=== PATIENT | male | born 1990 | race Caucasian/White ===

== ENCOUNTER 2020-01-16 17:43 | Emergency (ER) | payer SELFPAY ==
--- NOTE | 2020-01-16 17:44 | CTR_ITS ---
PROCEDURE INFORMATION: Exam: CT Head Without Contrast Exam date and time: 01/16/2020 5:46 PM Age: 29 years old Clinical indication: Altered mental status/memory loss; Additional info: Mcallister/ams TECHNIQUE: Imaging protocol: Computed tomography of the head without contrast. Axial, coronal and sagittal reformatted images were created and reviewed. Radiation optimization: All CT scans at this facility use at least one of these dose optimization techniques: automated exposure control; mA and/or kV adjustment per patient size (includes targeted exams where dose is matched to clinical indication); or iterative reconstruction. COMPARISON: No relevant prior studies available. RADIATION DOSE METRICS: Total DLP: 989.26 mGy-cm FINDINGS: Brain: No CT evidence of acute intracranial hemorrhage or acute territorial infarction. No significant mass effect or midline shift. Basal cisterns patent. Ventricles: Normal in size and configuration. Bones/joints: No acute osseous abnormality. Sinuses: Minimal ethmoid, maxillary and left sphenoid sinus mucosal thickening. Mastoid air cells: Grossly unremarkable. Soft tissues: Grossly unremarkable. CT/CT head wo con* [id number] IMPRESSION: 1[address] No CT evidence of acute intracranial pathology. 2. Additional findings, as above. Radiation Dose CTDIVOL = (mGy): DLP = 989.26 (mGy-cm)
--- NOTE | 2020-01-16 17:44 | XR_ITS ---
WS: [id number] PORTABLE CHEST HISTORY: cough COMPARISON: None available. Minimal linear subsegmental atelectasis in the lower lung barton. Otherwise lungs are clear. No pleur al effusion or pneumothorax. Cardiac size: Normal. Mediastinum/Aorta: Normal mediastinum. No osseous abnormality seen. XR/XR chest 1V portable [id number] IMPRESSION: Minimal bilateral lower lobe subsegmental atelectasis.
[2020-01-16 18:04] VITALS: BP 173/122; PULSE 124; RESP 18; O2SAT 96; BMI 25.8
[2020-01-16 18:14] LABS: Basophils % 0.1 %; Hematocrit 53.1 % (42.0-52.0); Hemoglobin 17.2 g/dL (11.7-16.6); Lymphocytes # 3.6 10^3/uL (0.8-4.8); Lymphocytes % 13.6 %; Mean Corpuscular HGB Conc 32.4 g/dL (30.0-36.0); Mean Corpuscular Hemoglobin 25.6 pg (28.0-34.0); Mean Platelet Volume 9.5 fL (7.4-10.4); Monocytes # 1.8 10^3/uL (0.2-0.9); Monocytes % 6.7 %; Neutrophils # 20.6 10^3/uL (1.8-7.7); Neutrophils % 79.1 %; Nucleated Red Blood Cells % 0 %; Platelet Count 604 10^3/cmm (130-400); Red Blood Count 6.72 10^6/uL (4.1-5.3); Red Cell Distribution Width 20.3 % (12.1-15.1); White Blood Count 26.1 10^3/uL (4.0-10.0)
--- NOTE | 2020-01-16 18:16 | ED_ITS ---
Documented by User: Tata Lester 01/16/20 21:12 HPI - General Adult General: Chief complaint: General Medical Stated complaint: BODY PAIN Time Seen by Provider: 01/16/20 17:43 History of Present Illness: HPI narrative: Erlin is a 29-year-old male who comes in drunk and agitated. EMS report is his mother has been with him and states that he has been drinking today and she believes he is coming off methamphetamines. The patient is erratic and not cooperative. He states that he is drunk but will not admit to anything else. He is asking something for something to help him relax. Review of Systems General: Reports: ROS unobtainable due to mental status PFSH ED PFSH: Medical History (Updated 01/17/20 @ 02:48 by Sun Short MD) Kidney stones Social History Smoking and tobacco status: current every day smoker Physical Exam Const: COMMON NORMALS: oriented x3 EXAM LIMITATIONS: altered mental status (Appears intoxicated) GENERAL APPEARANCE: combative and disheveled ORIENTA TION/CONSCIOUSNESS: Yes awake HENMT: COMMON NORMALS: normocephalic, head/scalp atraumatic, hearing grossly normal bilaterally, external ears normal, EAC's normal, external nose normal and moist oral mucous membranes HEAD & SCALP: normal to inspection, normocephalic and atraumatic FACE & SINUS: normal facial exam and face symmetric NOSE: external nose normal and nares normal EXTERNAL EAR: Yes external ears normal EXTERNAL AUDITORY CANAL: EAC's normal MOUTH: oral and palatal mucosa normal and tongue normal Eye: COMMON NORMALS: PERRL, EOMs intact bilaterally, conjunctivae normal and no scleral icterus GENERAL EYE: normal appearance of both eyes and normal light reflex CONJUNCTIVA: Yes conjunctivae normal SCLERA: sclerae normal CORNEA: Yes corneas normal PUPIL: Yes PERRL DIRECT OPHTHALMOSCOPY: Yes normal light reflex Neck/C-Spine: COMMON NORMALS: full ROM, no lymphadenopathy, supple, no meningeal signs and no JVD GENERAL: Yes normal visual inspection and Yes trachea midline CERVICAL SPINE: Yes cervical ROM normal Chest: COMMONS NORMALS: inspection of chest normal and palpation of chest normal Resp: COMMON NORMALS: normal respiratory effort, no retractions, no use of accessory muscles and clear to auscultation bilaterally EFFORT & INSPECTION: Yes able to speak in complete sentences AUSCULTATION: clear to auscultation bilaterally Cardio: COMMON NORMALS: no JVD, regular rate, regular rhythm, S1 normal heart sound, S2 normal heart sound, no gallops, no clicks, no murmurs and no rub JUGULAR VENOUS DISTENTION: no JVD RATE: regular rate RHYTHM: regular rhythm HEART SOUNDS: S1 normal and S2 normal GI: COMMON NORMALS: soft to palpation, non-tender, no hepatosplenomegaly and no masses INSPECTION: Yes normal to inspection PALPATION: Yes soft and Yes no hepatosplenomegaly : COMMON NORMALS: Yes no CVA tenderness BLADDER/KIDNEY EXAM: Yes no CVA tenderness Back/Pelvis: COMMON NORMALS: no CVA tenderness, thoracic and lumbar spine normal to inspection, no thoracic nor lumbar tenderness and thoraco-lumbar ROM normal Extremity: COMMON NORMALS: normal to inspection, full ROM, normal capillary refill, no joint enlargement, no clubbing, cyanosis or edema and no calf tenderness Neuro: COMMON NORMALS: oriented x3, CN's II-XII intact bilaterally, moves all extremities, no focal motor deficits and no sensory deficits noted MENINGEAL SIGNS: Yes no meningeal signs Psych: ATTITUDE: Yes paranoid, Yes evasive, Yes agitated and Yes aggressive ACTIVITY/MOTOR BEHAVIOR: Yes fidgeting SPEECH: Yes rapid and Yes pressured Course Vital Signs: Vital signs: Vital Signs Pulse Rate 116 H 01/17/20 01:32 Respiratory Rate 18 01/17/20 01:32 Blood Pressure 192/117 01/17/20 01:32 Pulse Oximetry 97 01/17/20 01:32 [facility] - General Adult Lab Data: Labs: Lab Results 01/16/20 01/16/20 01/16/20 Range/Units 17:50 17:50 17:50 WBC 26.1 H (4.0-10.0) 10^3/ uL RBC 6.72 H (4.1-5.3) 10^6/u L Hgb 17.2 H (11.7-16.6) g/dL Hct 53.1 H (42.0-52.0) % MCV 79.0 L (80-94) fL MCH 25.6 L (28.0-34.0) pg MCHC 32.4 (30.0-36.0) g/dL RDW 20.3 H (12.1-15.1) % Plt Count 604 H (130-400) 10^3/c mm MPV 9.5 (7.4-10.4) fL Neut % (Auto) 79.1 % Lymph % (Auto) 13.6 % [place] % (Auto) 6.7 % Eos % (Auto) 0.0 % Baso % (Auto) 0.1 % Neut # (Auto) 20.6 H (1.8-7.7) 10^3/u L Lymph # (Auto) 3.6 (0.8-4.8) 10^3/u L [place] # (Auto) 1.8 H (0.2-0.9) 10^3/u L Eos # (Auto) 0.0 (0.0-0.8) 10^3/u L Baso # (Auto) 0.0 (0.0-0.1) 10^3/u L Nucleated RBC % (a uto) 0 % Nucleated RBCs # 0.0 /100WBC PT 13.30 (10.5-13.3) SECO NDS INR 0.98 (0.8-1.2) Specimen Type Sample Site ABG pH (7.35-7.45) ABG pCO2 (35-45) mmHg ABG pO2 (80.0-100.0) mmH g ABG HCO3 (22-26) mmol/L ABG Base Excess (-2.0-2.0) mmol/ L [place] Test Hematocrit (42-52) % O2 Delivery Device FiO2 % Freezer Laboratory Technician ID Sodium (136-145) mmol/L Potassium (3.5-5.1) mmol/L Chloride (98-107) mmol/L Carbon Dioxide (22-29) mmol/L Anion Gap (5-19) BUN (6-20) mg/dL Creatinine (0.7-1.2) mg/dL GFR Calculation (90-130) mL/min Glucose (65-115) mg/dL Calculated Osmolal ity (285-295) mOsm/k g Calcium (8.5-10.5) mg/dL Magnesium (1.7-2.3) mg/dL Total Bilirubin (0.15-1.2) mg/dL AST (0-40) U/L ALT (0-41) U/L Alkaline Phosphata se (40-130) IU/L Creatine Kinase (39-308) U/L Total Protein (6.6-8.7) g/dL Albumin (3.5-5.2) g/dL Globulin (1.3-4.6) g/dL Lipase (13-60) U/L Urine Color (Yellow) Urine Appearance (CLEAR) Urine pH (5-7) Ur Specific Gravit y (1.005-1.030) Urine Protein (Negative) Urine Glucose (UA) (Normal) Urine Ketones (Negative) Urine Blood (Negative) Urine Nitrate (Negative) Urine Bilirubin (NEGATIVE) Urine Urobilinogen (Negative) mg/dL Ur Leukocyte Deana ase (Negative) Urine RBC (0-2) /hpf Urine WBC (0-5) /hpf Ur Squamous Epith Cells (0-5) Urine Bacteria (NONE) Urine Yeast Urine Opiates Scre en (Negative) ng/mL Ur Barbiturates Sc reen (Negative) ng/mL Ur Phencyclidine S crn (Negative) ng/mL Ur Amphetamines Sc reen (Negative) ng/mL U Benzodiazepines Scrn (Negative) ng/mL Urine Cocaine Scre en (Negative) ng/mL U Marijuana (THC) Screen (Negative) ng/mL Ethyl Alcohol (0-10) mg/dL Serum Ketones Negative (Negative) 01/16/20 01/16/20 01/16/20 Range/Units 18:50 18:50 18:50 WBC (4.0-10.0) 10^3/ uL RBC (4.1-5.3) 10^6/u L Hgb (11.7-16.6) g/dL Hct (42.0-52.0) % MCV (80-94) fL MCH (28.0-34.0) pg MCHC (30.0-36.0) g/dL RDW (12.1-15.1) % Plt Count (130-400) 10^3/c mm MPV (7.4-10.4) fL Neut % (Auto) % Lymph % (Auto) % [place] % (Auto) % Eos % (Auto) % Baso % (Auto) % Neut # (Auto) (1.8-7.7) 10^3/u L Lymph # (Auto) (0.8-4.8) 10^3/u L [place] # (Auto) (0.2-0.9) 10^3/u L Eos # (Auto) (0.0-0.8) 10^3/u L Baso # (Auto) (0.0-0.1) 10^3/u L Nucleated RBC % (a uto) % Nucleated RBCs # /100WBC PT (10.5-13.3) SECO NDS INR (0.8-1.2) Specimen Type Sample Site ABG pH (7.35-7.45) ABG pCO2 (35-45) mmHg ABG pO2 (80.0-100.0) mmH g ABG HCO3 (22-26) mmol/L ABG Base Excess (-2.0-2.0) mmol/ L [place] Test Hematocrit (42-52) % O2 Delivery Device FiO2 % Freezer Laboratory Technician ID Sodium 142 (136-145) mmol/L Potassium 3.6 (3.5-5.1) mmol/L Chloride 100 (98-107) mmol/L Carbon Dioxide 23 (22-29) mmol/L Anion Gap 22.6 H (5-19) BUN 11 (6-20) mg/dL Creatinine 0.7 (0.7-1.2) mg/dL GFR Calculation 133.3 H (90-130) mL/min Glucose 144 H (65-115) mg/dL Calculated Osmolal ity 293 (285-295) mOsm/k g Calcium 8.8 (8.5-10.5) mg/dL Magnesium 2.0 (1.7-2.3) mg/dL Total Bilirubin 0.4 (0.15-1.2) mg/dL AST 29 (0-40) U/L ALT 23 (0-41) U/L Alkaline Phosphata se 147 H (40-130) IU/L Creatine Kinase 139 (39-308) U/L Total Protein 7.6 (6.6-8.7) g/dL Albumin 4.2 (3.5-5.2) g/dL Globulin 3.4 (1.3-4.6) g/dL Lipase 639 H (13-60) U/L Urine Color (Yellow) Urine Appearance (CLEAR) Urine pH (5-7) Ur Specific Gravit y (1.005-1.030) Urine Protein (Negative) Urine Glucose (UA) (Normal) Urine Ketones (Negative) Urine Blood (Negative) Urine Nitrate (Negative) Urine Bilirubin (NEGATIVE) Urine Urobilinogen (Negative) mg/dL Ur Leukocyte Deana ase (Negative) Urine RBC (0-2) /hpf Urine WBC (0-5) /hpf Ur Squamous Epith Cells (0-5) Urine Bacteria (NONE) Urine Yeast Urine Opiates Scre en (Negative) ng/mL Ur Barbiturates Sc reen (Negative) ng/mL Ur Phencyclidine S crn (Negative) ng/mL Ur Amphetamines Sc reen (Negative) ng/mL U Benzodiazepines Scrn (Negative) ng/mL Urine Cocaine Scre en (Negative) ng/mL U Marijuana (THC) Screen (Negative) ng/mL Ethyl Alcohol 272 H (0-10) mg/dL Serum Ketones (Negative) 01/16/20 01/16/20 01/16/20 Range/Units 20:40 20:40 20:40 WBC (4.0-10.0) 10^3/ uL RBC (4.1-5.3) 10^6/u L Hgb (11.7-16.6) g/dL Hct (42.0-52.0) % MCV (80-94) fL MCH (28.0-34.0) pg MCHC (30.0-36.0) g/dL RDW (12.1-15.1) % Plt Count (130-400) 10^3/c mm MPV (7.4-10.4) fL Neut % (Auto) % Lymph % (Auto) % [place] % (Auto) % Eos % (Auto) % Baso % (Auto) % Neut # (Auto) (1.8-7.7) 10^3/u L Lymph # (Auto) (0.8-4.8) 10^3/u L [place] # (Auto) (0.2-0.9) 10^3/u L Eos # (Auto) (0.0-0.8) 10^3/u L Baso # (Auto) (0.0-0.1) 10^3/u L Nucleated RBC % (a uto) % Nucleated RBCs # /100WBC PT (10.5-13.3) SECO NDS INR (0.8-1.2) Specimen Type Arterial Sample Site Radial, left ABG pH 7.40 (7.35-7.45) ABG pCO2 38.3 (35-45) mmHg ABG pO2 83.4 (80.0-100.0) mmH g ABG HCO3 23.5 (22-26) mmol/L ABG Base Excess -1.0 (-2.0-2.0) mmol/ L [place] Test Pos Hematocrit 51.6 (42-52) % O2 Delivery Device None FiO2 21.0 % Freezer Laboratory Technician ID [email or web address] Sodium (136-145) mmol/L Potassium (3.5-5.1) mmol/L Chloride (98-107) mmol/L Carbon Dioxide (22-29) mmol/L Anion Gap (5-19) BUN (6-20) mg/dL Creatinine (0.7-1.2) mg/dL GFR Calculation (90-130) mL/min Glucose (65-115) mg/dL Calculated Osmolal ity (285-295) mOsm/k g Calcium (8.5-10.5) mg/dL Magnesium (1.7-2.3) mg/dL Total Bilirubin (0.15-1.2) mg/dL AST (0-40) U/L ALT (0-41) U/L Alkaline Phosphata se (40-130) IU/L Creatine Kinase (39-308) U/L Total Protein (6.6-8.7) g/dL Albumin (3.5-5.2) g/dL Globulin (1.3-4.6) g/dL Lipase (13-60) U/L Urine Color Yellow (Yellow) Urine Appearance Clear (CLEAR) Urine pH 6 (5-7) Ur Specific Gravit y 1.010 (1.005-1.030) Urine Protein 1+ H (Negative) Urine Glucose (UA) Norm (Normal) Urine Ketones Negative (Negative) Urine Blood Trace H (Negative) Urine Nitrate Negative (Negative) Urine Bilirubin Neg (NEGATIVE) Urine Urobilinogen Norm (Negative) mg/dL Ur Leukocyte Deana ase Negative (Negative) Urine RBC 0-4 H (0-2) /hpf Urine WBC 0-4 H (0-5) /hpf Ur Squamous Epith Cells 5-10 H (0-5) Urine Bacteria 2+ H (NONE) Urine Yeast 3+ H Urine Opiates Scre en Negative (Negative) ng/mL Ur Barbiturates Sc reen Negative (Negative) ng/mL Ur Phencyclidine S crn Negative (Negative) ng/mL Ur Amphetamines Sc reen Positive H (Negative) ng/mL U Benzodiazepines Scrn Positive H (Negative) ng/mL Urine Cocaine Scre en Negative (Negative) ng/mL U Marijuana (THC) Screen Positive H (Negative) ng/mL Ethyl Alcohol (0-10) mg/dL Serum Ketones (Negative) Imaging Data^: CT Head: Radiologist's impression: [address] [address] [address] Scan Report Signed Patient: Erlin Hernandez Unit #: [id number] : 1990 Age/Sex: 29 / M ADM Date: 01/16/20 Loc: ER Room/Bed: Attending Dr: Ordering Provider/Ordering MD: Tata Lester DO Date of Service: 01/16/20 Procedure(s): CT head wo con* [id number] Accession Number(s): [id number] Report Number: [id number] PROCEDURE INFORMATION: Exam: CT Head Without Contrast Exam date and time: 01/16/2020 5:46 PM Age: 29 years old Clinical indication: Altered mental status/memory loss; Additional info: Mcallister/ams TECHNIQUE: Imaging protocol: Computed tomography of the head without contrast. Axial, coronal and sagittal reformatted images were created and reviewed. Radiation optimization: All CT scans at this facility use at least one of these dose optimization techniques: automated exposure control; mA and/or kV adjustment per patient size (includes targeted exams where dose is matched to clinical indication); or iterative reconstruction. COMPARISON: No relevant prior studies available. RADIATION DOSE METRICS: Total DLP: 989.26 mGy-cm FINDINGS: Brain: No CT evidence of acute intracranial hemorrhage or acute territorial infarction. No significant mass effect or midline shift. Basal cisterns patent. Ventricles: Normal in size and configuration. Bones/joints: No acute osseous abnormality. Sinuses: Minimal ethmoid, maxillary and left sphenoid sinus mucosal thickening. Mastoid air cells: Grossly unremarkable. Soft tissues: Grossly unremarkable. CT/CT head wo con* [id number] IMPRESSION: 1. No CT evidence of acute intracranial pathology. 2. Additional findings, as above. Radiation Dose CTDIVOL = (mGy): DLP = 989.26 (mGy-cm) Dictated By: Artur Roblero MD Signed By: Artur Roblero MD Signed Date/Time: 01/16/202020 DD/ 19 CT Abd/Pel: Radiologist's impression: [address] [address] [address] Scan Report Signed Patient: Erlin Hernandez Unit #: [id number] : 1990 Age/Sex: 29 / M ADM Date: 01/16/20 Loc: ER Room/Bed: Attending Dr: Ordering Provider/Ordering MD: Tata Lester DO Date of Service: 01/16/20 Procedure(s): CT abdomen pelvis w con* [id number] Accession Number(s): [id number] Report Number: [id number] PROCEDURE INFORMATION: Exam: CT Abdomen And Pelvis With Contrast Exam date and time: 01/16/2020 7:20 PM Age: 29 years old Clinical indication: Abdominal pain TECHNIQUE: Imaging protocol: Computed tomography of the abdomen and pelvis with intravenous contrast. Axial, coronal and sagittal reformatted images were created and reviewed. Radiation optimization: All CT scans at this facility use at least one of these dose optimization techniques: automated exposure control; mA and/or kV adjustment per patient size (includes targeted exams where dose is matched to clinical indication); or iterative reconstruction. Contrast material: OMNI 300; Contrast volume: 95 ml; Contrast route: IV; COMPARISON: No relevant prior studies available. RADIATION DOSE METRICS: Total DLP: 1075.3 mGy-cm FINDINGS: Heart: Trace pericardial fluid. Lungs: Linear stranding and groundglass at the lung bases, likely due to atelectasis and/or scarring. Mediastinum: Mild nonspecific distal esophageal wall thickening, suggesting chronic reflux/esophagitis. Liver: Mild hepatomegaly. Diffuse hepatic steatosis. Gallbladder and bile ducts: Mild gallbladder distention with tiny dependent gallstones. Pancreas: Moderate peripancreatic stranding and edema. Approximately 2.4 x 2.2 cm cystic lesion in the pancreatic head with subtle associated hyperattenuation, possibly blood products. 6.5 x 4 cm complex mass abutting the pancreatic tail, likely a hemorrhagic pseudocyst. Spleen: Unremarkable. Adrenals: Unremarkable. Kidneys and ureters: Multiple low-density renal lesions bilaterally, some of which are indeterminate and many of which are too small to characterize, measuring up to 1.8 x 1.6 cm on the left. No radiodense calculi. No hydronephrosis. Stomach and bowel: Mild gastric antral and duodenal wall thickening, likely reactive. No obstruction. No pneumatosis. Appendix: Normal. Intraperitoneal space: Small ascites. No free air. Vasculature: Mild atherosclerotic disease. No aneurysm or dissection. Lymph nodes: No pathologically enlarged lymph nodes. Bladder: Unremarkable. Reproductive: Unremarkable. Bones/joints: No acute osseous abnormality. Mild degenerative changes. Soft tissues: Unremarkable. CT/CT abdomen pelvis w con* [id number] IMPRESSION: 1. Acute pancreatitis with associated hemorrhagic pseudocysts, as described above. Follow-up to resolution is recommended. 2. Multiple low-density renal lesions bilaterally, some of which are indeterminate and many of which are too small to characterize, measuring up to 1.8 x 1.6 cm on the left. These likely represent simple and complex cysts. If clinically indicated, ultrasound is suggested for further evaluation. 3. Additional findings, as above. COMMENTS: Consistent with the [employer]'s Incidental Findings Committee white paper (J Am Shikha Radiol 2018): Any incidental cystic renal lesion classified in this report as too small to characterize or simple appearing is likely a benign cyst. No follow-up imaging is recommended for these lesions per consensus recommendations based on imaging criteria. Radiation Dose CTDIVOL = (mGy): DLP = 1075.3 (mGy-cm) Dictated By: Artur Roblero MD Signed By: Artur Roblero MD Signed Date/Time: 01/16/202028 DD/ 27 EKG Data^: EKG 1: Attestation: I personally reviewed and interpreted this EKG as follows: EKG interpretation date: 01/16/20 EKG interpretation time: 21:12 Interpretation: Sinus tach at 121 beats a minute, no acute ST or T wave changes, normal axis, no blocks, normal intervals. Computer generated interpretation: Head CT 01/16/20 17:[address]: 1[address] evidence of acute intracranial pathology. 2. Additional findings, as above. Radiation Dose CTDIVOL = (mGy): DLP = 989.26 (mGy-cm) Abdomen/Pelvis CT 01/16/20 18:29 IMPRESSION: 1. Acute pancreatitis with associated hemorrhagic pseudocysts, as described above. Follow-up to resolution is recommended. 2. Multiple low-density renal lesions bilaterally, some of which are indeterminate and many of which are too small to characterize, measuring up to 1.8 x 1.6 cm on the left. These likely represent simple and complex cysts. If clinically indicated, ultrasound is suggested for further evaluation. 3. Additional findings, as above. COMMENTS: Consistent with the [employer]'s Incidental Findings Committee white paper (J Am Shikha Radiol 2018): Any incidental cystic renal lesion classified in this report as too small to characterize or simple appearing is likely a benign cyst. No follow-up imaging is recommended for these lesions per consensus recommendations based on imaging criteria. 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 Fwd Exam Comprehensive Documented by User: Sun Short MD 01/17/20 02:59 HPI - General Adult General: Chief complaint: General Medical Stated complaint: BODY PAIN Time Seen by Provider: 01/16/20 17:43 PFSH ED PFSH: Medical History (Updated 01/17/20 @ 02:48 by Sun Short MD) Kidney stones Social History Smoking and tobacco status: current every day smoker Course Vital Signs: Vital signs: Vital Signs Pulse Rate 116 H 01/17/20 01:32 Respiratory Rate 18 01/17/20 01:32 Blood Pressure 192/117 01/17/20 01:32 Pulse Oximetry 97 01/17/20 01:32 MDM - General Adult MDM Narrative: Medical decision making narrative: Patient I took patient over from Dr. Amin. Patient was found to have pancreatitis with a hemorrhagic cyst. Spoke to physician at [facility] and will transfer there for higher level of care. Patient has been stable while here. Lab Data: Labs: Lab Results 01/16/20 01/16/20 01/16/20 Range/Units 17:50 17:50 17:50 WBC 26.1 H (4.0-10.0) 10^3/ uL RBC 6.72 H (4.1-5.3) 10^6/u L Hgb 17.2 H (11.7-16.6) g/dL Hct 53.1 H (42.0-52.0) % MCV 79.0 L (80-94) fL MCH 25.6 L (28.0-34.0) pg MCHC 32.4 (30.0-36.0) g/dL RDW 20.3 H (12.1-15.1) % Plt Count 604 H (130-400) 10^3/c mm MPV 9.5 (7.4-10.4) fL Neut % (Auto) 79.1 % Lymph % (Auto) 13.6 % [place] % (Auto) 6.7 % Eos % (Auto) 0.0 % Baso % (Auto) 0.1 % Neut # (Auto) 20.6 H (1.8-7.7) 10^3/u L Lymph # (Auto) 3.6 (0.8-4.8) 10^3/u L [place] # (Auto) 1.8 H (0.2-0.9) 10^3/u L Eos # (Auto) 0.0 (0.0-0.8) 10^3/u L Baso # (Auto) 0.0 (0.0-0.1) 10^3/u L Nucleated RBC % (a uto) 0 % Nucleated RBCs # 0.0 /100WBC PT 13.30 (10.5-13.3) SECO NDS INR 0.98 (0.8-1.2) Specimen Type Sample Site ABG pH (7.35-7.45) ABG pCO2 (35-45) mmHg ABG pO2 (80.0-100.0) mmH g ABG HCO3 (22-26) mmol/L ABG Base Excess (-2.0-2.0) mmol/ L [place] Test Hematocrit (42-52) % O2 Delivery Device FiO2 % Freezer Laboratory Technician ID Sodium (136-145) mmol/L Potassium (3.5-5.1) mmol/L Chloride (98-107) mmol/L Carbon Dioxide (22-29) mmol/L Anion Gap (5-19) BUN (6-20) mg/dL Creatinine (0.7-1.2) mg/dL GFR Calculation (90-130) mL/min Glucose (65-115) mg/dL Calculated Osmolal ity (285-295) mOsm/k g Calcium (8.5-10.5) mg/dL Magnesium (1.7-2.3) mg/dL Total Bilirubin (0.15-1.2) mg/dL AST (0-40) U/L ALT (0-41) U/L Alkaline Phosphata se (40-130) IU/L Creatine Kinase (39-308) U/L Total Protein (6.6-8.7) g/dL Albumin (3.5-5.2) g/dL Globulin (1.3-4.6) g/dL Lipase (13-60) U/L Urine Color (Yellow) Urine Appearance (CLEAR) Urine pH (5-7) Ur Specific Gravit y (1.005-1.030) Urine Protein (Negative) Urine Glucose (UA) (Normal) Urine Ketones (Negative) Urine Blood (Negative) Urine Nitrate (Negative) Urine Bilirubin (NEGATIVE) Urine Urobilinogen (Negative) mg/dL Ur Leukocyte Deana ase (Negative) Urine RBC (0-2) /hpf Urine WBC (0-5) /hpf Ur Squamous Epith Cells (0-5) Urine Bacteria (NONE) Urine Yeast Urine Opiates Scre en (Negative) ng/mL Ur Barbiturates Sc reen (Negative) ng/mL Ur Phencyclidine S crn (Negative) ng/mL Ur Amphetamines Sc reen (Negative) ng/mL U Benzodiazepines Scrn (Negative) ng/mL Urine Cocaine Scre en (Negative) ng/mL U Marijuana (THC) Screen (Negative) ng/mL Ethyl Alcohol (0-10) mg/dL Serum Ketones Negative (Negative) 01/16/20 01/16/20 01/16/20 Range/Units 18:50 18:50 18:50 WBC (4.0-10.0) 10^3/ uL RBC (4.1-5.3) 10^6/u L Hgb (11.7-16.6) g/dL Hct (42.0-52.0) % MCV (80-94) fL MCH (28.0-34.0) pg MCHC (30.0-36.0) g/dL RDW (12.1-15.1) % Plt Count (130-400) 10^3/c mm MPV (7.4-10.4) fL Neut % (Auto) % Lymph % (Auto) % [place] % (Auto) % Eos % (Auto) % Baso % (Auto) % Neut # (Auto) (1.8-7.7) 10^3/u L Lymph # (Auto) (0.8-4.8) 10^3/u L [place] # (Auto) (0.2-0.9) 10^3/u L Eos # (Auto) (0.0-0.8) 10^3/u L Baso # (Auto) (0.0-0.1) 10^3/u L Nucleated RBC % (a uto) % Nucleated RBCs # /100WBC PT (10.5-13.3) SECO NDS INR (0.8-1.2) Specimen Type Sample Site ABG pH (7.35-7.45) ABG pCO2 (35-45) mmHg ABG pO2 (80.0-100.0) mmH g ABG HCO3 (22-26) mmol/L ABG Base Excess (-2.0-2.0) mmol/ L [place] Test Hematocrit (42-52) % O2 Delivery Device FiO2 % Freezer Laboratory Technician ID Sodium 142 (136-145) mmol/L Potassium 3.6 (3.5-5.1) mmol/L Chloride 100 (98-107) mmol/L Carbon Dioxide 23 (22-29) mmol/L Anion Gap 22.6 H (5-19) BUN 11 (6-20) mg/dL Creatinine 0.7 (0.7-1.2) mg/dL GFR Calculation 133.3 H (90-130) mL/min Glucose 144 H (65-115) mg/dL Calculated Osmolal ity 293 (285-295) mOsm/k g Calcium 8.8 (8.5-10.5) mg/dL Magnesium 2.0 (1.7-2.3) mg/dL Total Bilirubin 0.4 (0.15-1.2) mg/dL AST 29 (0-40) U/L ALT 23 (0-41) U/L Alkaline Phosphata se 147 H (40-130) IU/L Creatine Kinase 139 (39-308) U/L Total Protein 7.6 (6.6-8.7) g/dL Albumin 4.2 (3.5-5.2) g/dL Globulin 3.4 (1.3-4.6) g/dL Lipase 639 H (13-60) U/L Urine Color (Yellow) Urine Appearance (CLEAR) Urine pH (5-7) Ur Specific Gravit y (1.005-1.030) Urine Protein (Negative) Urine Glucose (UA) (Normal) Urine Ketones (Negative) Urine Blood (Negative) Urine Nitrate (Negative) Urine Bilirubin (NEGATIVE) Urine Urobilinogen (Negative) mg/dL Ur Leukocyte Deana ase (Negative) Urine RBC (0-2) /hpf Urine WBC (0-5) /hpf Ur Squamous Epith Cells (0-5) Urine Bacteria (NONE) Urine Yeast Urine Opiates Scre en (Negative) ng/mL Ur Barbiturates Sc reen (Negative) ng/mL Ur Phencyclidine S crn (Negative) ng/mL Ur Amphetamines Sc reen (Negative) ng/mL U Benzodiazepines Scrn (Negative) ng/mL Urine Cocaine Scre en (Negative) ng/mL U Marijuana (THC) Screen (Negative) ng/mL Ethyl Alcohol 272 H (0-10) mg/dL Serum Ketones (Negative) 01/16/20 01/16/20 01/16/20 Range/Units 20:40 20:40 20:40 WBC (4.0-10.0) 10^3/ uL RBC (4.1-5.3) 10^6/u L Hgb (11.7-16.6) g/dL Hct (42.0-52.0) % MCV (80-94) fL MCH (28.0-34.0) pg MCHC (30.0-36.0) g/dL RDW (12.1-15.1) % Plt Count (130-400) 10^3/c mm MPV (7.4-10.4) fL Neut % (Auto) % Lymph % (Auto) % [place] % (Auto) % Eos % (Auto) % Baso % (Auto) % Neut # (Auto) (1.8-7.7) 10^3/u L Lymph # (Auto) (0.8-4.8) 10^3/u L [place] # (Auto) (0.2-0.9) 10^3/u L Eos # (Auto) (0.0-0.8) 10^3/u L Baso # (Auto) (0.0-0.1) 10^3/u L Nucleated RBC % (a uto) % Nucleated RBCs # /100WBC PT (10.5-13.3) SECO NDS INR (0.8-1.2) Specimen Type Arterial Sample Site Radial, left ABG pH 7.40 (7.35-7.45) ABG pCO2 38.3 (35-45) mmHg ABG pO2 83.4 (80.0-100.0) mmH g ABG HCO3 23.5 (22-26) mmol/L ABG Base Excess -1.0 (-2.0-2.0) mmol/ L Aqu[place]ino Test Pos Hematocrit 51.6 (42-52) % O2 Delivery Device None FiO2 21.0 % Freezer Laboratory Technician ID [email or web address] Sodium (136-145) mmol/L Potassium (3.5-5.1) mmol/L Chloride (98-107) mmol/L Carbon Dioxide (22-29) mmol/L Anion Gap (5-19) BUN (6-20) mg/dL Creatinine (0.7-1.2) mg/dL GFR Calculation (90-130) mL/min Glucose (65-115) mg/dL Calculated Osmolal ity (285-295) mOsm/k g Calcium (8.5-10.5) mg/dL Magnesium (1.7-2.3) mg/dL Total Bilirubin (0.15-1.2) mg/dL AST (0-40) U/L ALT (0-41) U/L Alkaline Phosphata se (40-130) IU/L Creatine Kinase (39-308) U/L Total Protein (6.6-8.7) g/dL Albumin (3.5-5.2) g/dL Globulin (1.3-4.6) g/dL Lipase (13-60) U/L Urine Color Yellow (Yellow) Urine Appearance Clear (CLEAR) Urine pH 6 (5-7) Ur Specific Gravit y 1.010 (1.005-1.030) Urine Protein 1+ H (Negative) Urine Glucose (UA) Norm (Normal) Urine Ketones Negative (Negative) Urine Blood Trace H (Negative) Urine Nitrate Negative (Negative) Urine Bilirubin Neg (NEGATIVE) Urine Urobilinogen Norm (Negative) mg/dL Ur Leukocyte Deana ase Negative (Negative) Urine RBC 0-4 H (0-2) /hpf Urine WBC 0-4 H (0-5) /hpf Ur Squamous Epith Cells 5-10 H (0-5) Urine Bacteria 2+ H (NONE) Urine Yeast 3+ H Urine Opiates Scre en Negative (Negative) ng/mL Ur Barbiturates Sc reen Negative (Negative) ng/mL Ur Phencyclidine S crn Negative (Negative) ng/mL Ur Amphetamines Sc reen Positive H (Negative) ng/mL U Benzodiazepines Scrn Positive H (Negative) ng/mL Urine Cocaine Scre en Negative (Negative) ng/mL U Marijuana (THC) Screen Positive H (Negative) ng/mL Ethyl Alcohol (0-10) mg/dL Serum Ketones (Negative) EKG Data^: EKG 1: Computer generated interpretation: Head CT 01/16/20 17:[address]: 1[address] No CT evidence of acute intracranial pathology. 2. Additional findings, as above. Radiation Dose CTDIVOL = (mGy): DLP = 989.26 (mGy-cm) Abdomen/Pelvis CT 01/16/20 18:29
[2020-01-16 18:24] LABS: INR 0.98 (0.8-1.2); Ketone (Acetest) Serum Negative (Negative)
--- NOTE | 2020-01-16 18:29 | CTR_ITS ---
PROCEDURE INFORMATION: Exam: CT Abdomen And Pelvis With Contrast Exam date and time: 01/16/2020 7:20 PM Age: 29 years old Clinical indication: Abdominal pain TECHNIQUE: Imaging protocol: Computed tomography of the abdomen and pelvis with intravenous contrast. Axial, coronal and sagittal reformatted images were created and reviewed. Radiation optimization: All CT scans at this facility use at least one of these dose optimization techniques: automated exposure control; mA and/or kV adjustment per patient size (includes targeted exams where dose is matched to clinical indication); or iterative reconstruction. Contrast material: OMNI 300; Contrast volume: 95 ml; Contrast route: IV; COMPARISON: No relevant prior studies available. RADIATION DOSE METRICS: Total DLP: 1075.3 mGy-cm FINDINGS: Heart: Trace pericardial fluid. Lungs: Linear stranding and groundglass at the lung bases, likely due to atelectasis and/or scarring. Mediastinum: Mild nonspecific distal esophageal wall thickening, suggesting chronic reflux/esophagitis. Liver: Mild hepatomegaly. Diffuse hepatic steatosis. Gallbladder and bile ducts: Mild gallbladder distention with tiny dependent gallstones. Pancreas: Moderate peripancreatic stranding and edema. Approximately 2.4 x 2.2 cm cystic lesion in the pancreatic head with subtle associated hyperattenuation, possibly blood products. 6.5 x 4 cm complex mass abutting the pancreatic tail, likely a hemorrhagic pseudocyst. Spleen: Unremarkable. Adrenals: Unremarkable. Kidneys and ureters: Multiple low-density renal lesions bilaterally, some of which are indeterminate and many of which are too small to characterize, measuring up to 1.8 x 1.6 cm on the left. No radiodense calculi. No hydronephrosis. Stomach and bowel: Mild gastric antral and duodenal wall thickening, likely reactive. No obstruction. No pneumatosis. Appendix: Normal. Intraperitoneal space: Small ascites. No free air. Vasculature: Mild atherosclerotic disease. No aneurysm or dissection. Lymph nodes: No pathologically enlarged lymph nodes. Bladder: Unremarkable. Reproductive: Unremarkable. Bones/joints: No acute osseous abnormality. Mild degenerative changes. Soft tissues: Unremarkable. CT/CT abdomen pelvis w con* [id number] IMPRESSION: 1. Acute pancreatitis with associated hemorrhagic pseudocysts, as described above. Follow-up to resolution is recommended. 2. Multiple low-density renal lesions bilaterally, some of which are indeterminate and many of which are too small to characterize, measuring up to 1.8 x 1.6 cm on the left. These likely represent simple and complex cysts. If clinically indicated, ultrasound is suggested for further evaluation. 3. Additional findings, as above. COMMENTS: Consistent with the [employer]'s Incidental Findings Committee white paper (J Am Shikha Radiol 2018): Any incidental cystic renal lesion classified in this report as too small to characterize or simple appearing is likely a benign cyst. No follow-up imaging is recommended for these lesions per consensus recommendations based on imaging criteria. Radiation Dose CTDIVOL = (mGy): DLP = 1075.3 (mGy-cm)
[2020-01-16 19:25] LABS: Alanine Aminotransferase 23 U/L (0-41); Albumin Level 4.2 g/dL (3.5-5.2); Alkaline Phosphatase 147 IU/L (40-130); Anion Gap 22.6 (5-19); Aspartate Amino Transferase 29 U/L (0-40); Blood Urea Nitrogen 11 mg/dL (6-20); Calcium 8.8 mg/dL (8.5-10.5); Carbon Dioxide 23 mmol/L (22-29); Chloride 100 mmol/L (98-107); Creatine Phosphokinase 139 U/L (39-308); Globulin 3.4 g/dL (1.3-4.6); Glomerular Filtration Rate 133.3 mL/min (90-130); Glucose 144 mg/dL (65-115); Osmolality Calculated 293 mOsm/kg (285-295); Potassium 3.6 mmol/L (3.5-5.1); Sodium 142 mmol/L (136-145); Total Bilirubin 0.4 mg/dL (0.15-1.2); Total Protein 7.6 g/dL (6.6-8.7)
[2020-01-16] MEDS: haloperidol inj 5 mg/mL INJ 1 mL IM (19:52)
[2020-01-16] MEDS: LORazepam 2 mg/mL INJ 1 mL IM (19:53)
[2020-01-16] MEDS: ondansetron 2 mg/ML SDV 2 mL 4 MG IVP (19:53)
[2020-01-16] MEDS: sodium chloride 0.9% 1,000 ML 100 ML IV (19:54)
[2020-01-16] MEDS: iohexol 300 mg/mL 100 mL Btl IV (20:14)
[2020-01-16 20:46] LABS: ABG PCO2 38.3 mmHg (35-45); Arterial Blood Gas Hematocrit 51.6 % (42-52); Blood Gas Allen Test Pos; Blood Gas Sample Site Radial, left; Blood Gas Sample Type Arterial; HCO3 ABG 23.5 mmol/L (22-26); PO2 ABG 83.4 mmHg (80.0-100.0)
[2020-01-16 20:53] LABS: Alcohol Level 272 mg/dL (0-10)
[2020-01-16] MEDS: lactated ringers 1,000 ML 999 ML IV (21:13)
[2020-01-16 21:14] VITALS: RESP 17; O2SAT 98
[2020-01-16] MEDS: morphine 4 mg/mL SDV 1 mL IVP ×2 (21:14→23:16)
[2020-01-16 21:24] LABS: Bilirubin Urine Neg (NEGATIVE); Blood Urine Trace (Negative); Glucose Urine UA Norm (Normal); Ketones Urine Negative (Negative); Leukocyte Esterase Urine Negative (Negative); Nitrate Urine Negative (Negative); Protein Urine 1+ (Negative); Urine Appearance Clear (CLEAR); Urine Color Yellow (Yellow); Urobilinogen Urine Norm (Negative); pH Urine 6 (5-7)
[2020-01-16 21:25] LABS: Bacteria Urine 2+; RBC Urine 0-4 /hpf (0-2); WBC Urine 0-4 /hpf (0-5)
[2020-01-16] MEDS: pantoprazole 40 mg SDV 80 MG IVP (21:25)
[2020-01-16 21:27] LABS: Add Urine Culture? Yes
[2020-01-16 21:28] LABS: Amphetamines Screen Urine Positive (Negative); Benzodiazepines Screen Urine Positive (Negative); Cocaine Screen Urine Negative (Negative); Opiate Screen Urine Negative (Negative); PCP Screen Urine Negative (Negative); THC Screen Urine Positive (Negative)
[2020-01-16 21:35] LABS: Lipase 639 U/L (13-60)
[2020-01-16] MEDS: haloperidol inj 5 mg/mL INJ 1 mL 2 MG IVP (21:56)
[2020-01-16 22:14] LABS: Barbiturates Screen Urine Negative (Negative)
[2020-01-16] MEDS: labetalol 5 mg/mL SDV 20mL 10 MG IVP (23:10)
[2020-01-16 23:16] VITALS: RESP 16; O2SAT 98
[2020-01-17] MEDS: labetalol 5 mg/mL SDV 20mL 20 MG IVP (00:26)
[2020-01-17 00:27] VITALS: RESP 18; O2SAT 96
[2020-01-17] MEDS: HYDROmorphone 1 mg/mL INJ 1 mL IVP (00:27)
[2020-01-17] MEDS: LORazepam 2 mg/mL INJ 1 mL IVP (00:27)
[2020-01-17 01:32] VITALS: BP 192/117; PULSE 116; RESP 18; O2SAT 97
== END 2020-01-17 02:56 | disposition short-term general hospital (02) ==
PROVIDERS: Emergency Medicine; Emergency Provider Emergency Medicine
DX: K85.20 Alcohol induced acute pancreatitis without necrosis or infection (principal); K86.2 Cyst of pancreas; F17.210 Nicotine dependence, cigarettes, uncomplicated
CPT/HCPCS: 12345; 36600; 70450; 71045; 74177; 80053; 80306; 80307; 81001; 82009; 82550; 82803; 83690; 83735; 85025; 85610; 87086; 96365; 96366; 96372; 96375; 96376; 99283; 99285; C9113; J0131; J1170; J1630; J2060; J2270; J2405; J3490; J7030; Q9967

== ENCOUNTER → 2020-01-16 17:48 | Emergency (ER) | payer SELFPAY | END | disposition left against medical advice (07) | LOC: ER 04-26 12:06 | PROVIDERS: Emergency Provider Emergency Medicine | DX: K86.2 Cyst of pancreas (principal); K85.20 Alcohol induced acute pancreatitis without necrosis or infection; F17.210 Nicotine dependence, cigarettes, uncomplicated | CPT/HCPCS: 99281 ==

== ENCOUNTER → 2022-07-25 14:14 | Outpatient (BNVA) | payer MEDICAID, SELFPAY | PROVIDERS: PCP Family Medicine; Visit Provider Nurse Practitioner Family | DX: Z20.822 Contact with and (suspected) exposure to COVID-19 (principal) | CPT/HCPCS: 87426 ==

== ENCOUNTER 2022-12-23 22:08 | Emergency (ER) | payer MEDICAID, SELFPAY ==
[2022-12-23 22:20] VITALS: BP 215/135; PULSE 81; RESP 18; TEMP 36.8; O2SAT 98; BMI 24.9
--- NOTE | 2022-12-24 00:02 | CTR_ITS ---
PROCEDURE INFORMATION: Exam: CT Abdomen And Pelvis With Contrast Exam date and time: 12/24/2022 12:53 AM Age: 32 years old Clinical indication: Fever; Abdominal pain; Generalized; Additional info: Abd pain R/O infection TECHNIQUE: Imaging protocol: Computed tomography of the abdomen and pelvis with contrast. Radiation optimization: All CT scans at this facility use at least one of these dose optimization techniques: automated exposure control; mA and/or kV adjustment per patient size (includes targeted exams where dose is matched to clinical indication); or iterative reconstruction. Contrast material: OMNI 350; Contrast volume: 100 ml; Contrast route: INTRAVENOUS (IV); REPORTING DATA: Count of CT and Cardiac NM exams in prior 12 months: This patient has received 0 known CTs and 0 known cardiac nuclear medicine studies in the 12 months prior to the current study. COMPARISON: CT abdomen pelvis w con* [id number] 01/16/2020 8:08 PM RADIATION DOSE METRICS: Total DLP (mGy-cm): 596.58 FINDINGS: Lungs: Mild linear opacities in the lung bases compatible with mild atelectasis. A partially imaged 5 mm nodule along the left major fissure, likely a small lymph node, (series 4, image 1). No pleural effusion. No additional lung masses. Heart: Trace anterior pericardial effusion is again noted. Mild cardiomegaly. Liver: Mild hepatomegaly. No hepatic focal lesions.. No mass. Gallbladder and bile ducts: Redemonstration of mild thickening of the gallbladder estrada. No calcified gallbladder stones are identified. No ductal dilation. Pancreas: Redemonstration of sequela of pancreatitis. Interval decreased size of the cystic lesion in the pancreatic head, now measuring approximally 1.8 x 1.5 cm, (series 4, image 35), previously measures approximally 2.4 x 2.4 cm, (series 2, image 43 on the prior). Redemonstration of [id number] peripancreatic fat stranding and edema, overall decreased compared to the prior. Interval decreased size of the previously seen complex mass abutting the pancreatic tail with residual lesion measuring 3.1 x 2.1 cm, (series 4, image 25), previously measured approximately 6.5 x 4.0 cm. Increased vascularity around the tail of the pancreas and between the stomach in the spleen. Spleen: Mild splenomegaly. Adrenal glands: The adrenal glands are stable in appearance. No mass. Kidneys and ureters: Multiple renal cysts are again noted. There are small non-obstructing calcific densities in the left kidney. No hydronephrosis. Stomach and bowel: Thickening of the gastric wall can be seen with gastritis in the appropriate clinical setting. Mild varicosities is suspected. The small and large bowel appear grossly stable No obstruction. Appendix: No evidence of appendicitis. Intraperitoneal space: Unremarkable. No free air. No significant fluid collection. Vasculature: Increased varicosities around the stomach in the hilum of the spleen There are atherosclerotic calcifications of the aortic arch and its branches. No abdominal aortic aneurysm. Lymph nodes: No enlarged lymph nodes by CT size criteria. Urinary bladder: Unremarkable as visualized. Reproductive: Unremarkable as visualized. Bones/joints: Mild degenerative changes of the lumbar spine. Disc bulges at multiple levels. No acute fracture. Soft tissues: Unremarkable. CT/CT abdomen pelvis w con* [id number] IMPRESSION: 1. Expected interval evolution of the previously seen sequela of acute pancreatitis with decreased size of the previously seen cystic pancreatic lesions as detailed above. Continued attention on follow-up is recommended. 2. Indeterminate 6 mm nodule in the right lung. A 6-12 month follow-up chest CT is recommended for further evaluation according to Fleischner criteria. 3. Additional findings as detailed above.
--- NOTE | 2022-12-24 00:26 | ED_ITS ---
HPI - Recheck/Abnormal Lab/Rx General: Chief Complaint: Recheck/Abnormal Lab/Rx Stated Complaint: Dr. Fuad jim, gallbladder issues Time Seen by Provider: 12/24/22 00:23 History of Present Illness: 32-year-old male patient comes in today for complaints of a flare of pancreatitis starting 4 days ago. Patient was seen at his primary care office yesterday and was treated with antinausea medication and medication for pain. Labs came back today and noted that patient had some elevation in white blood cell count. Patient's physician felt that he might need to be further evaluated in the ER to rule out infectious process. Patient reports some improvement today. Patient also has a history of substance use disorder, alcoholism, and chronic pancreatitis. Review of Systems General: Reports: 10 or more systems reviewed and unremarkable except in HPI and below Card: Denies: chest pain Resp: Denies: dyspnea GI: Reports: abdominal pain, nausea and vomiting Musc: Denies: neck pain or back pain Skin/Breast: Denies: rash Neuro: Denies: headache(s) PFSH ED PFSH: Medical History Alcoholic liver disease CAD (coronary artery disease) Diabetes HTN (hypertension) Hyperlipidemia Kidney stones Pancreatitis, chronic Surgical History Stented coronary artery Family History Mother CAD (coronary artery disease), Onset Age: 55 Stroke Social History Quit status (tobacco): has tried quititng Number of times tried to quit tobacco: 6 Second hand smoke exposure: Yes Alcohol intake: former Former alcohol use details: Takes a Shot occasionally Current gender identity: Male and Female Physical Exam Const: COMMON NORMALS: alert HENMT: COMMON NORMALS: normocephalic HEAD & SCALP: normocephalic Neck/C-Spine: COMMON NORMALS: no meningeal signs Resp: COMMON NORMALS: normal respiratory effort and clear to auscultation bilaterally AUSCULTATION: clear to auscultation bilaterally Cardio: COMMON NORMALS: regular rate and regular rhythm RATE: regular rate RHYTHM: regular rhythm GI: COMMON NORMALS: Soft to palpation PALPATION: Yes Soft to palpation and Yes Tenderness to palpation present (GI) (Midepigastric) Extremity: COMMON NORMALS: normal to inspection Neuro: SENSORIUM/ORIENTATION: Yes alert MENINGEAL SIGNS: Yes no meningeal signs Skin: COMMON NORMALS: turgor normal GENERAL SKIN EXAM: turgor normal Course ED course: 0234, CBC had a leukocytosis at 19,000, lipase was 12, liver enzymes were unremarkable, and anion gap was 16. Patient was given 1 L of IV fluids but we held the second liter as he does not appear to be as dehydrated as suspected. We are awaiting CT report for further evaluation pain and nausea and vomiting. Vital Signs: Vital signs: Vital Signs Temperature 98.2 F 12/23/22 22:20 Pulse Rate 70 12/24/22 02:30 Respiratory Rate 13 12/24/22 02:34 Blood Pressure 164/100 12/24/22 02:30 Pulse Oximetry 100 12/24/22 02:34 Oxygen Delivery Me thod Room Air 12/23/22 22:20 MDM - Recheck/Abnormal Lab/Rx Medical Decision Making Patient was referred to the ER from his primary care for concerns of elevated white blood cell count along with nausea vomiting and abdominal pain. On exam p atient had some epigastric discomfort. Respirations were even lungs were clear to auscultation. Skin was warm and dry. Vital signs were normal except for elevation of blood pressure. Differential diagnosis includes but not limited to pancreatitis, gallbladder disease, gastritis, abdominal abscess. Laboratory values had a white count of 19,000, lipase was 12, liver enzymes were unremarkable. Blood glucose was 202. CT of the abdomen pelvis was performed showing improvement in pancreatitis with decreased size and cystic pancreatic lesions. Urinalysis was clean. Patient was given 1 L of IV fluids and medication for pain and nausea. Patient had improvement of symptoms. Recommended patient follow-up with primary care and monitor for high fever or blood in vomit or stool. No signs of surgical abdomen or serious infectious process could be identified. Patient does have very poor dentition and also had had the vomitus episodes which may be contributing to the elevation in his white blood cell count. Patient at this time is on amoxicillin for his dental problems and has planned for a removal of his teeth. Reviewed recommendations for follow-up and return with patient who agreed to plan. Lab Data 12/23/22 00:41 12/23/22 00:41 Radiology Impressions Abdomen/Pelvis CT 12/24/22 00:02 IMPRESSION: 1. Expected interval evolution of the previously seen sequela of acute pancreatitis with decreased size of the previously seen cystic pancreatic lesions as detailed above. Continued attention on follow-up is recommended. 2. Indeterminate 6 mm nodule in the right lung. A 6-12 month follow-up chest CT is recommended for further evaluation according to Fleischner criteria. 3. Additional findings as detailed above. Laboratory Results WBC 19.7 10^3/uL (4.0-10.0) H 12/23/22 00:41 RBC 5.47 10^6/uL (4.1-5.3) H 12/23/22 00:41 Hgb 15.0 g/dL (11.7-16.6) 12/23/22 00:41 Hct 45.5 % (42.0-52.0) 12/23/22 00:41 MCV 83.2 fl (80-94) 12/23/22 00:41 MCH 27.4 pg (28.0-34.0) L 12/23/22 00:41 MCHC 33.0 g/dL (30.0-36.0) 12/23/22 00:41 RDW 16.1 % (12.1-15.1) H 12/23/22 00:41 Plt Count 142 10^3/cmm (130-400) 12/23/22 00:41 MPV 11.6 fL (7.4-10.4) H 12/23/22 00:41 Neut % (Auto) 69.4 % 12/23/22 00:41 Lymph % (Auto) 22.4 % 12/23/22 00:41 Day % (Auto) 6.4 % 12/23/22 00:41 Eos % (Auto) 1.2 % 12/23/22 00:41 Baso % (Auto) 0.3 % 12/23/22 00:41 Neut # (Auto) 13.68 10^3/uL (1.8-7.7) H 12/23/22 00:41 Lymph # (Auto) 4.4 10^3/uL (0.8-4.8) 12/23/22 00:41 Day # (Auto) 1.3 10^3/uL (0.2-0.9) H 12/23/22 00:41 Eos # (Auto) 0.2 10^3/uL (0.0-0.8) 12/23/22 00:41 Baso # (Auto) 0.1 10^3/uL (0.0-0.1) 04 00:41 Nucleated RBC % (auto) 0 % 12/23/22 00:41 Nucleated RBCs # 0.0 /100WBC 12/23/22 00:41 Sodium 137 mmol/L (136-145) 12/23/22 00:41 Potassium 3.7 mmol/L (3.5-5.1) 12/23/22 00:41 Chloride 99 mmol/L (98-107) 12/23/22 00:41 Carbon Dioxide 25 mmol/L (22-29) 12/23/22 00:41 Anion Gap 16.7 (5-19) 12/23/22 00:41 BUN 21 mg/dL (6-20) H 12/23/22 00:41 Creatinine 1.1 mg/dL (0.7-1.2) 12/23/22 00:41 GFR Calculation 77.6 mL/min (90-130) L 12/23/22 00:41 Glucose 202 mg/dL (65-115) H 12/23/22 00:41 Calculated Osmolality 293 mOsm/kg (285-295) 12/23/22 00:41 Calcium 9.3 mg/dL (8.5-10.5) 12/23/22 00:41 Total Bilirubin 0.2 mg/dL (0.15-1.2) 12/23/22 00:41 AST 11 U/L (0-40) 12/23/22 00:41 ALT 12 U/L (0-41) 12/23/22 00:41 Alkaline Phosphatase 125 U/L (40-130) 12/23/22 00:41 Total Protein 7.4 g/dL (6.6-8.7) 12/23/22 00:41 Albumin 4.3 g/dL (3.5-5.2) 12/23/22 00:41 Globulin 3.1 g/dL (1.3-4.6) 12/23/22 00:41 Triglycerides 142 mg/dL (0-150) 12/23/22 00:41 Lipase 12 U/L (13-60) L 12/23/22 00:41 Urine Color Colorless (Yellow) 12/24/22 02:42 Urine Appearance Clear (CLEAR) 12/24/22 02:42 Urine pH 7 (5-7) 12/24/22 02:42 Ur Specific [place] 1.005 (1.005-1.030) 12/24/22 02:42 Urine Protein Neg (Negative) 12/24/22 02:42 Urine Glucose (UA) Trace (Normal) H 12/24/22 02:42 Urine Ketones Negative (Negative) 12/24/22 02:42 Urine Blood Neg (Negative) 12/24/22 02:42 Urine Nitrate Negative (Negative) 12/24/22 02:42 Urine Bilirubin Neg (Negative) 12/24/22 02:42 Urine Urobilinogen Norm mg/dL (Negative) 12/24/22 02:42 Ur Leukocyte Esterase Negative (Negative) 12/24/22 02:42 Discharge Plan Discharge Patient Disposition: Home Clinical Impression: Nausea & vomiting Pancreatitis, chronic Qualifiers: Pancreatitis type: unspecified pancreatitis type Qualified Code(s): K86.1 - Other chronic pancreatitis Condition: Stable Prescriptions: No Action clonazepam 1 mg tablet 1 mg PO TID PRN olanzapine 10 mg tablet 10 mg PO DAILY metformin 500 mg tablet 500 mg PO BID losartan 50 mg tablet 75 mg PO DAILY Qty: 135 2RF clonidine HCl 0.2 mg tablet 0.2 mg PO BID metoprolol succinate 25 mg tablet extended release 24 hr 25 mg PO DAILY pantoprazole 40 mg tablet,delayed release (DR/EC) 40 mg PO DAILY aspirin 81 mg tablet,chewable 81 mg PO DAILY atorvastatin 40 mg tablet 40 mg PO DAILY gabapentin 300 mg capsule 100 mg PO TID clopidogrel 75 mg tablet 75 mg PO DAILY isosorbide dinitrate 10 mg tablet 10 mg PO BID Rx Instructions: allow nitrate-free interval of 12-14 hrs per 24-hr period oxycodone 15 mg tablet 15 mg PO BID PRN albuterol sulfate 90 mcg/actuation HFA aerosol inhaler 2 puff inhalation QID Qty: 8.5 0RF Rx Instructions: 2 puffs inhaled every 4-6 hours as needed nitroglycerin 0.4 mg tablet, sublingual 0.4 mg sublingual Q5M PRN (Reason: chest pain) Qty: 25 0RF Rx Instructions: do not exceed 3 doses per episode nifedipine 90 mg tablet extended release 90 mg PO DAILY Qty: 90 0RF Rx Instructions: Needs follow-up for further refills Discharge Orders: Discharge ED (Routine); Ordered 12/24/22 Ordered By: Parish Arana Referrals: Joann Merida DO [Primary Care Provider] - Discharge Diet: Advance as tolerated Patient Instructions: Opioid Safety, Pain Management Activity Restrictions/Additional Instructions: IncreasedLight diet. As tolerated. Follow-up with primary care for further instruction. Return to ED for worsening symptoms such as high fever greater than 100.4, severe chest pain, severe shortness of breath, blood in vomit or stool, or other signs of infection. Coding Level of Care Code ED [employer] D[employer] Surveyor for Les Martinez
[2022-12-24] MEDS: iohexol 350 mg/mL 500 mL Btl (per mL) IV (00:34)
[2022-12-24 00:38] VITALS: BP 177/102; PULSE 79; RESP 16; O2SAT 98
[2022-12-24] MEDS: ondansetron 2 mg/ML SDV 2 mL 4 MG IVP (00:41)
[2022-12-24] MEDS: sodium chloride 0.9% 1,000 ML 999 ML IV (00:42)
[2022-12-24 00:46] VITALS: RESP 16
[2022-12-24] MEDS: morphine 4 mg/mL SDV 1 mL IVP (00:46)
[2022-12-24 01:00] LABS: Basophils # 0.1 10^3/uL (0.0-0.1); Basophils % 0.3 %; Eosinophils # 0.2 10^3/uL (0.0-0.8); Eosinophils % 1.2 %; Hematocrit 45.5 % (42.0-52.0); Lymphocytes # 4.4 10^3/uL (0.8-4.8); Lymphocytes % 22.4 %; Mean Corpuscular Hemoglobin 27.4 pg (28.0-34.0); Mean Corpuscular Volume 83.2 fl (80-94); Mean Platelet Volume 11.6 fL (7.4-10.4); Monocytes # 1.3 10^3/uL (0.2-0.9); Monocytes % 6.4 %; Neutrophils # 13.68 10^3/uL (1.8-7.7); Neutrophils % 69.4 %; Nucleated Red Blood Cells % 0 %; Platelet Count 142 10^3/cmm (130-400); Red Blood Count 5.47 10^6/uL (4.1-5.3); Red Cell Distribution Width 16.1 % (12.1-15.1); White Blood Count 19.7 10^3/uL (4.0-10.0)
[2022-12-24 01:20] LABS: Alanine Aminotransferase 12 U/L (0-41); Albumin Level 4.3 g/dL (3.5-5.2); Alkaline Phosphatase 125 U/L (40-130); Anion Gap 16.7 (5-19); Aspartate Amino Transferase 11 U/L (0-40); Blood Urea Nitrogen 21 mg/dL (6-20); Calcium 9.3 mg/dL (8.5-10.5); Carbon Dioxide 25 mmol/L (22-29); Chloride 99 mmol/L (98-107); Globulin 3.1 g/dL (1.3-4.6); Glomerular Filtration Rate 77.6 mL/min (90-130); Glucose 202 mg/dL (65-115); Lipase 12 U/L (13-60); Osmolality Calculated 293 mOsm/kg (285-295); Potassium 3.7 mmol/L (3.5-5.1); Sodium 137 mmol/L (136-145); Total Bilirubin 0.2 mg/dL (0.15-1.2); Total Protein 7.4 g/dL (6.6-8.7); Triglycerides 142 mg/dL (0-150)
[2022-12-24 02:30] VITALS: BP 164/100; PULSE 70; RESP 17; O2SAT 99
[2022-12-24 02:34] VITALS: RESP 13; O2SAT 100
[2022-12-24] MEDS: fentaNYL 50 mcg/mL INJ 2mL 90 MCG IVP (02:34)
[2022-12-24 02:46] LABS: Add Urine Microscopic? NO; Charge for UA Resulting for Rev
[2022-12-24 02:49] LABS: Bilirubin Urine Neg (Negative); Blood Urine Neg (Negative); Glucose Urine UA Trace (Normal); Ketones Urine Negative (Negative); Leukocyte Esterase Urine Negative (Negative); Nitrate Urine Negative (Negative); Protein Urine Neg (Negative); Specific Gravity, Urine 1.005 (1.005-1.030); Urine Appearance Clear (CLEAR); Urine Color Colorless (Yellow); Urobilinogen Urine Norm (Negative); pH Urine 7 (5-7)
[2022-12-24 03:24] VITALS: BP 157/99; PULSE 78; RESP 12; O2SAT 100
== END 2022-12-24 03:26 | disposition home or self-care (01) ==
PROVIDERS: Emergency Medicine; Emergency Provider Nurse Practitioner Family; PCP Family Medicine
DX: K86.1 Other chronic pancreatitis (principal); R11.2 Nausea with vomiting, unspecified; Z79.82 Long term (current) use of aspirin; Z79.02 Long term (current) use of antithrombotics/antiplatelets; Z79.84 Long term (current) use of oral hypoglycemic drugs; I25.10 Atherosclerotic heart disease of native coronary artery without angina pectoris; E11.9 Type 2 diabetes mellitus without complications; I10 Essential (primary) hypertension; E78.5 Hyperlipidemia, unspecified
CPT/HCPCS: 74177; 80053; 81003; 83690; 84478; 85025; 96361; 96374; 96375; 99285; J2270; J2405; J3010; J7030; Q9967

== ENCOUNTER 2023-04-04 16:28 | Emergency (ER) | payer MEDICAID, SELFPAY ==
--- NOTE | 2023-04-04 16:38 | ECG_ITS ---
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 Measurements Intervals [place] Rate: 81 P: 27 [place]: 150 QRS: 7 QRSD: 85 T: 68 QT: 370 QTc: 430 Interpretive Statements SINUS RHYTHM NONSPECIFIC T-WAVE ABNORMALITY No previous ECG available for comparison Electronically Signed On 04-06-2023 8:33:44 CDT by Guru Pedersen M.D. [id number]
--- NOTE | 2023-04-04 16:38 | XRR_ITS ---
PROCEDURE INFORMATION: Exam: XR Chest Exam date and time: 04/04/2023 4:45 PM Age: 33 years old Clinical indication: Cough and dyspnea; Additional info: Dyspnea/cough TECHNIQUE: Imaging protocol: Radiologic exam of the chest. Views: 1 view. COMPARISON: CR XR chest 1V portable [id number] 01/16/2020 5:46 PM FINDINGS: Lungs: Unremarkable. No consolidation. Pleural spaces: Unremarkable. No pleural effusion. No pneumothorax. Heart/Mediastinum: Unremarkable. No cardiomegaly. Bones/joints: Old left rib fracture. No acute fracture. XR/XR chest 1V portable [id number] IMPRESSION: No acute findings.
[2023-04-04 16:39] VITALS: BP 135/83; PULSE 88; RESP 16; TEMP 36.8; O2SAT 94
[2023-04-04 16:43] VITALS: BP 135/83; PULSE 94; O2SAT 95
--- NOTE | 2023-04-04 16:49 | ED_ITS ---
Documented by User: Andrea Armstrong DO 04/04/23 18:27 HPI - Chest Pain General: Chief Complaint: Chest Pain Stated Complaint: Chest Pain Time Seen by Provider: 04/04/23 16:37 Source: patient Mode of arrival: ambulatory History of Present Illness: 33-year-old male presents to the emergency room with complaints of chest pain. Reports substernal chest pain that began earlier today rates the pain 8 out of 10. Patient appears acutely intoxicated. Patient does have a known history of coronary artery disease and has previously had stents at outside facilities. His medication list was reviewed. MD complaint: chest pain Pertinent past history: coronary artery disease Onset (ago): hour(s) Timing of current episode: episodic Prior episodes: Yes Onset: during rest Pain location: substernal and left chest Pain radiation: back Quality: tightness, aching and heaviness Relieving factors: nothing Exacerbating factors: nothing Associated symptoms: Reports diaphoresis, dyspnea and nausea; Deny abdominal pain, fever(s), leg edema, palpitations, sense of impending doom, syncope or vomiting Review of Systems Const: Reports: diaphoresis; Denies: fever(s), chills, fatigue or malaise Card: Reports: chest pain; Denies: palpitations, irregular heart rhythm, edema or syncope Resp: Reports: dyspnea GI: Reports: nausea; Denies: abdominal pain or vomiting : Denies: flank pain, dysuria, urinary frequency or urinary urgency Skin/Breast: Denies: rash or pruritus PFSH ED PFSH: Medical History Alcoholic liver disease CAD (coronary artery disease) Diabetes HTN (hypertension) Hyperlipidemia Kidney stones Pancreatitis, chronic Surgical History Stented coronary artery Family History Mother CAD (coronary artery disease), Onset Age: 55 Stroke Social History Quit status (tobacco): has tried quititng Number of times tried to quit tobac co: 6 Second hand smoke exposure: Yes Alcohol intake: former Former alcohol use details: Takes a Shot occasionally Substance/Drug Use: current Current gender identity: Male and Female Physical Exam Const: GENERAL APPEARANCE: cooperative and comfortable ORIENTATION/CONSCIOUSNESS: Yes awake, Yes oriented to person, Yes oriented to place and Yes oriented to time HENMT: COMMON NORMALS: normocephalic, atraumatic and hearing grossly normal bilaterally HEAD & SCALP: normocephalic and atraumatic OTHER: Edentulous Resp: COMMON NORMALS: normal respiratory effort, No retractions, No use of accessory muscles and clear to auscultation bilaterally AUSCULTATION: clear to auscultation bilaterally Cardio: COMMON NORMALS: regular rate, regular rhythm and No murmurs present (Cardio) RATE: regular rate RHYTHM: regular rhythm GI: COMMON NORMALS: Soft to palpation and No hepatosplenomegaly present AUSCULTATION: Yes normoactive bowel sounds PALPATION: Yes Soft to palpation, No Tenderness to palpation present (GI), No Guarding due to palpation present (GI) and Yes No hepatosplenomegaly present Extremity: COMMON NORMALS: normal to inspection, capillary refill normal, no clubbing, cyanosis or edema, no calf tenderness and no pedal edema Neuro: SENSORIUM/ORIENTATION: Yes oriented to person, Yes oriented to place and Yes oriented to time Skin: COMMON NORMALS: no rashes or lesions noted GENERAL SKIN EXAM: no rashes or lesions noted Course Vital Signs: Vital signs: Vital Signs Temperature 98.2 F 04/04/23 16:39 Pulse Rate 66 04/04/23 17:43 Respiratory Rate 16 04/04/23 16:39 Blood Pressure 106/71 04/04/23 18:30 Pulse Oximetry 91 04/04/23 18:30 Oxygen Delivery Me thod Room Air 04/04/23 16:43 MDM - Chest Pain Medical Decision Making Blood alcohol markedly elevated consistent with clinical presentation. Second troponin pending EKGs initially did not show any acute changes. Care signed out to Dr. Long at change of shift. See final notes for diagnosis and disposition. Lab Data 04/04/23 17:00 04/04/23 17:00 Radiology Impressions Chest X-Ray 04/04/23 16:38 IMPRESSION: No acute findings. Laboratory Results WBC 11.5 10^3/uL (4.0-10.0) H 04/04/23 17:00 RBC 5.25 10^6/uL (4.1-5.3) 04/04/23 17:00 Hgb 14.8 g/dL (11.7-16.6) 04/04/23 17:00 Hct 45.4 % (42.0-52.0) 04/04/23 17:00 MCV 86.5 fl (80-94) 04/04/23 17:00 MCH 28.2 pg (28.0-34.0) 04/04/23 17:00 MCHC 32.6 g/dL (30.0-36.0) 04/04/23 17:00 RDW 16.6 % (12.1-15.1) H 04/04/23 17:00 Plt Count 305 10^3/cmm (130-400) 04/04/23 17:00 MPV 10.3 fL (7.4-10.4) 04/04/23 17:00 Neut % (Auto) 49.4 % 04/04/23 17:00 Lymph % (Auto) 41.9 % 04/04/23 17:00 [place] % (Auto) 5.6 % 04/04/23 17:00 Eos % (Auto) 1.8 % 04/04/23 17:00 Baso % (Auto) 1.0 % 04/04/23 17:00 Neut # (Auto) 5.70 10^3/uL (1.8-7.7) 04/04/23 17:00 Lymph # (Auto) 4.8 10^3/uL (0.8-4.8) 04/04/23 17:00 [place] # (Auto) 0.6 10^3/uL (0.2-0.9) 04/04/23 17:00 Eos # (Auto) 0.2 10^3/uL (0.0-0.8) 04/04/23 17:00 Baso # (Auto) 0.1 10^3/uL (0.0-0.1) 04/04/23 17:00 Nucleated RBC % (auto) 0 % 04/04/23 17:00 Nucleated RBCs # 0.0 /100WBC 04/04/23 17:00 PT 13.50 SECONDS (12.1-14.9) 04/04/23 17:00 INR 1.00 (0.8-1.2) 04/04/23 17:00 APTT 26.8 SECONDS (23.9-36.7) 04/04/23 17:00 Sodium 139 mmol/L (136-145) 04/04/23 17:00 Potassium 4.9 mmol/L (3.5-5.1) 04/04/23 17:00 Chloride 103 mmol/L (98-107) 04/04/23 17:00 Carbon Dioxide 24 mmol/L (22-29) 04/04/23 17:00 Anion Gap 16.9 (5-19) 04/04/23 17:00 BUN 21 mg/dL (6-20) H 04/04/23 17:00 Creatinine 1.2 mg/dL (0.7-1.2) 04/04/23 17:00 GFR Calculation 69.7 mL/min (90-130) L 04/04/23 17:00 Glucose 151 mg/dL (65-115) H 04/04/23 17:00 Calculated Osmolality 294 mOsm/kg (285-295) 04/04/23 17:00 Calcium 8.8 mg/dL (8.5-10.5) 04/04/23 17:00 Total Bilirubin 0.4 mg/dL (0.15-1.2) 04/04/23 17:00 AST 35 U/L (0-40) 04/04/23 17:00 ALT 21 U/L (0-41) 04/04/23 17:00 Alkaline Phosphatase 143 U/L (40-130) H 04/04/23 17:00 Ammonia 28 umol/L (16-60) 04/04/23 17:00 Troponin T Baseline 28 ng/L (0-15) H 04/04/23 17:00 Troponin T 120 Minute 23.37 ng/L (0-15) H 04/04/23 18:58 Delta Troponin T -4.63 ABS# (0-10) L 04/04/23 18:58 Total Protein 6.8 g/dL (6.6-8.7) 04/04/23 17:00 Albumin 4.0 g/dL (3.5-5.2) 04/04/23 17:00 Globulin 2.8 g/dL (1.3-4.6) 04/04/23 17:00 Lipase 14 U/L (13-60) 04/04/23 17:00 Ethyl Alcohol 337 mg/dL (0-10) H* 04/04/23 17:00 Discharge Plan Discharge Patient Disposition: Home Clinical Impression: Chest pain, Alcohol intoxication Condition: Stable Prescriptions: No Action clonazepam 1 mg tablet 1 mg PO TID PRN olanzapine 10 mg tablet 10 mg PO DAILY metformin 500 mg tablet 500 mg PO BID losartan 50 mg tablet 75 mg PO DAILY Qty: 135 2RF clonidine HCl 0.2 mg tablet 0.2 mg PO BID metoprolol succinate 25 mg tablet extended release 24 hr 25 mg PO DAILY pantoprazole 40 mg tablet,delayed release (DR/EC) 40 mg PO DAILY aspirin 81 mg tablet,chewable 81 mg PO DAILY atorvastatin 40 mg tablet 40 mg PO DAILY gabapentin 300 mg capsule 100 mg PO TID clopidogrel 75 mg tablet 75 mg PO DAILY isosorbide dinitrate 10 mg tablet 10 mg PO BID Rx Instructions: allow nitrate-free interval of 12-14 hrs per 24-hr period oxycodone 15 mg tablet 15 mg PO BID PRN albuterol sulfate 90 mcg/actuation HFA aerosol inhaler 2 puff inhalation QID Qty: 8.5 0RF Rx Instructions: 2 puffs inhaled every 4-6 hours as needed nitroglycerin 0.4 mg tablet, sublingual 0.4 mg sublingual Q5M PRN (Reason: chest pain) Qty: 25 0RF Rx Instructions: do not exceed 3 doses per episode nifedipine 90 mg tablet extended release 90 mg PO DAILY Qty: 90 0RF Rx Instructions: Needs follow-up for further refills Discharge Orders: Discharge ED (Routine); Ordered 04/04/23 Ordered By: Ernesto Long Referrals: Joann Merida DO [Primary Care Provider] - 1-3 days Bethanie Velazquez MD [Physician] - 4-7 days Patient Instructions: Chest Pain (ED), Alcohol Intoxication (ED), Opioid Safety, Pain Management Activity Restrictions/Additional Instructions: Work-up in the emergency department did not reveal a cause of your chest pain today. You do not appear to have had a heart attack. Return for worsening chest discomfort, worsening shortness of breath, other concerning symptoms. Our field case manager will make a follow-up appointment with our cardiology clinic for you. You have been seen by them in the past. They may wish to schedule more outpatient testing for you. Coding Level of Care Code ED Onion Topper for Chg Fwd Documented by User: Ernesto Long DO 04/05/23 04:57 HPI - Chest Pain General: Chief Complaint: Chest Pain Stated Complaint: Chest Pain Time Seen by Provider: 04/04/23 16:37 PFSH ED PFSH: Medical History Alcoholic liver disease CAD (coronary artery disease) Diabetes HTN (hypertension) Hyperlipidemia Kidney stones Pancreatitis, chronic Surgical History Stented coronary artery Family History Mother CAD (coronary artery disease), Onset Age: 55 Stroke Social History Quit status (tobacco): has tried quititng Number of times tried to quit tobacco: 6 Second hand smoke exposure: Yes Alcohol intake: former Former alcohol use details: Takes a Shot occasionally Substance/Drug Use: current Current gender identity: Male and Female Course Vital Signs: Vital signs: Vital Signs Temperature 98.2 F 04/04/23 16:39 Pulse Rate 66 04/04/23 17:43 Respiratory Rate 16 04/04/23 16:39 Blood Pressure 106/71 04/04/23 18:30 Pulse Oximetry 91 04/04/23 18:30 Oxygen Delivery Me thod Room Air 04/04/23 16:43 MDM - Chest Pain Medical Decision Making Blood alcohol markedly elevated consistent with clinical presentation. Second troponin pending EKGs initially did not show any acute changes. Care signed out to Dr. Long at change of shift. See final notes for diagnosis and disposition. Received in checkout from previous physician at shift change. Second troponin resulted with a delta of -4.6. No significant EKG changes. Chest x-ray is negative. Laboratory otherwise is not remarkable including a normal lipase and ammonia level. Alcohol is critical at [facility]. Differential includes angina, reflux, alcoholic gastritis among others. He has been seen by cardiology prior at this institution, although it appears to be about a year and a half ago. He will be encouraged to follow-up as an outpatient. He is normotensive here. Lab Data 04/04/23 17:00 04/04/23 17:00 Radiology Impressions Chest X-Ray 04/04/23 16:38 IMPRESSION: No acute findings. Laboratory Results WBC 11.5 10^3/uL (4.0-10.0) H 04/04/23 17:00 RBC 5.25 10^6/uL (4.1-5.3) 04/04/23 17:00 Hgb 14.8 g/dL (11.7-16.6) 04/04/23 17:00 Hct 45.4 % (42.0-52.0) 04/04/23 17:00 MCV 86.5 fl (80-94) 04/04/23 17:00 MCH 28.2 pg (28.0-34.0) 04/04/23 17:00 MCHC 32.6 g/dL (30.0-36.0) 04/04/23 17:00 RDW 16.6 % (12.1-15.1) H 04/04/23 17:00 Plt Count 305 10^3/cmm (130-400) 04/04/23 17:00 MPV 10.3 fL (7.4-10.4) 04/04/23 17:00 Neut % (Auto) 49.4 % 04/04/23 17:00 Lymph % (Auto) 41.9 % 04/04/23 17:00 [place] % (Auto) 5.6 % 04/04/23 17:00 Eos % (Auto) 1.8 % 04/04/23 17:00 Baso % (Auto) 1.0 % 04/04/23 17:00 Neut # (Auto) 5.70 10^3/uL (1.8-7.7) 04/04/23 17:00 Lymph # (Auto) 4.8 10^3/uL (0.8-4.8) 04/04/23 17:00 [place] # (Auto) 0.6 10^3/uL (0.2-0.9) 04/04/23 17:00 Eos # (Auto) 0.2 10^3/uL (0.0-0.8) 04/04/23 17:00 Baso # (Auto) 0.1 10^3/uL (0.0-0.1) 04/04/23 17:00 Nucleated RBC % (auto) 0 % 04/04/23 17:00 Nucleated RBCs # 0.0 /100WBC 04/04/23 17:00 PT 13.50 SECONDS (12.1-14.9) 04/04/23 17:00 INR 1.00 (0.8-1.2) 04/04/23 17:00 APTT 26.8 SECONDS (23.9-36.7) 04/04/23 17:00 Sodium 139 mmol/L (136-145) 04/04/23 17:00 Potassium 4.9 mmol/L (3.5-5.1) 04/04/23 17:00 Chloride 103 mmol/L (98-107) 04/04/23 17:00 Carbon Dioxide 24 mmol/L (22-29) 04/04/23 17:00 Anion Gap 16.9 (5-19) 04/04/23 17:00 BUN 21 mg/dL (6-20) H 04/04/23 17:00 Creatinine 1.2 mg/dL (0.7-1.2) 04/04/23 17:00 GFR Calculation 69.7 mL/min (90-130) L 04/04/23 17:00 Glucose 151 mg/dL (65-115) H 04/04/23 17:00 Calculated Osmolality 294 mOsm/kg (285-295) 04/04/23 17:00 Calcium 8.8 mg/dL (8.5-10.5) 04/04/23 17:00 Total Bilirubin 0.4 mg/dL (0.15-1.2) 04/04/23 17:00 AST 35 U/L (0-40) 04/04/23 17:00 ALT 21 U/L (0-41) 04/04/23 17:00 Alkaline Phosphatase 143 U/L (40-130) H 04/04/23 17:00 Ammonia 28 umol/L (16-60) 04/04/23 17:00 Troponin T Baseline 28 ng/L (0-15) H 04/04/23 17:00 Troponin T 120 Minute 23.37 ng/L (0-15) H 04/04/23 18:58 Delta Troponin T -4.63 ABS# (0-10) L 04/04/23 18:58 Total Protein 6.8 g/dL (6.6-8.7) 04/04/23 17:00 Albumin 4.0 g/dL (3.5-5.2) 04/04/23 17:00 Globulin 2.8 g/dL (1.3-4.6) 04/04/23 17:00 Lipase 14 U/L (13-60) 04/04/23 17:00 Ethyl Alcohol 337 mg/dL (0-10) H* 04/04/23 17:00 Discharge Plan Discharge Patient Disposition: Home Clinical Impression: Chest pain, Alcohol intoxication Condition: Stable Prescriptions: No Action clonazepam 1 mg tablet 1 mg PO TID PRN olanzapine 10 mg tablet 10 mg PO DAILY metformin 500 mg tablet 500 mg PO BID losartan 50 mg tablet 75 mg PO DAILY Qty: 135 2RF clonidine HCl 0.2 mg tablet 0.2 mg PO BID metoprolol succinate 25 mg tablet extended release 24 hr 25 mg PO DAILY pantoprazole 40 mg tablet,delayed release (DR/EC) 40 mg PO DAILY aspirin 81 mg tablet,chewable 81 mg PO DAILY atorvastatin 40 mg tablet 40 mg PO DAILY gabapentin 300 mg capsule 100 mg PO TID clopidogrel 75 mg tablet 75 mg PO DAILY isosorbide dinitrate 10 mg tablet 10 mg PO BID Rx Instructions: allow nitrate-free interval of 12-14 hrs per 24-hr period oxycodone 15 mg tablet 15 mg PO BID PRN albuterol sulfate 90 mcg/actuation HFA aerosol inhaler 2 puff inhalation QID Qty: 8.5 0RF Rx Instructions: 2 puffs inhaled every 4-6 hours as needed nitroglycerin 0.4 mg tablet, sublingual 0.4 mg sublingual Q5M PRN (Reason: chest pain) Qty: 25 0RF Rx Instructions: do not exceed 3 doses per episode nifedipine 90 mg tablet extended release 90 mg PO DAILY Qty: 90 0RF Rx Instructions: Needs follow-up for further refills Discharge Orders: Discharge ED (Routine); Ordered 04/04/23 Ordered By: Ernesto Long Referrals: Joann Merida DO [Primary Care Provider] - 1-3 days Bethanie Velazquez MD [Physician] - 4-7 days Patient Instructions: Chest Pain (ED), Alcohol Intoxication (ED), Opioid Safety, Pain Management Activity Restrictions/Additional Instructions: Work-up in the emergency department did not reveal a cause of your chest pain today. You do not appear to have had a heart attack. Return for worsening chest discomfort, worsening shortness of breath, other concerning symptoms. Our field case manager will make a follow-up appointment with our cardiology clinic for you. You have been seen by them in the past. They may wish to schedule more outpatient testing for you. Coding Level of Care Code ED Onion Topper for Les Martinez
[2023-04-04] MEDS: lactated ringers 1,000 ML 999 ML IV (17:05)
[2023-04-04 17:07] LABS: Basophils # 0.1 10^3/uL (0.0-0.1); Eosinophils # 0.2 10^3/uL (0.0-0.8); Eosinophils % 1.8 %; Hematocrit 45.4 % (42.0-52.0); Hemoglobin 14.8 g/dL (11.7-16.6); Lymphocytes # 4.8 10^3/uL (0.8-4.8); Lymphocytes % 41.9 %; Mean Corpuscular HGB Conc 32.6 g/dL (30.0-36.0); Mean Corpuscular Hemoglobin 28.2 pg (28.0-34.0); Mean Corpuscular Volume 86.5 fl (80-94); Mean Platelet Volume 10.3 fL (7.4-10.4); Monocytes # 0.6 10^3/uL (0.2-0.9); Monocytes % 5.6 %; Neutrophils % 49.4 %; Nucleated Red Blood Cells % 0 %; Platelet Count 305 10^3/cmm (130-400); Red Blood Count 5.25 10^6/uL (4.1-5.3); Red Cell Distribution Width 16.6 % (12.1-15.1); White Blood Count 11.5 10^3/uL (4.0-10.0)
--- NOTE | 2023-04-04 17:15 | ECG_ITS ---
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 Measurements Intervals [place] Rate: 58 P: 7 DE: 149 QRS: 5 QRSD: 88 T: 64 QT: 418 QTc: 411 Interpretive Statements SINUS BRADYCARDIA NONSPECIFIC T-WAVE ABNORMALITY Compared to ECG 04/04/2023 16:42:59 Sinus rhythm no longer present T-wave abnormality still present Electronically Signed On 04-06-2023 8:33:17 CDT by Guru Pedersen M.D. [email or web address]
[2023-04-04 17:31] LABS: Ammonia 28 umol/L (16-60); Partial Thromboplastin Time 26.8 SECONDS (23.9-36.7)
[2023-04-04 17:37] LABS: Alanine Aminotransferase 21 U/L (0-41); Alkaline Phosphatase 143 U/L (40-130); Anion Gap 16.9 (5-19); Aspartate Amino Transferase 35 U/L (0-40); Blood Urea Nitrogen 21 mg/dL (6-20); Calcium 8.8 mg/dL (8.5-10.5); Carbon Dioxide 24 mmol/L (22-29); Chloride 103 mmol/L (98-107); Globulin 2.8 g/dL (1.3-4.6); Glomerular Filtration Rate 69.7 mL/min (90-130); Glucose 151 mg/dL (65-115); Lipase 14 U/L (13-60); Osmolality Calculated 294 mOsm/kg (285-295); Potassium 4.9 mmol/L (3.5-5.1); Sodium 139 mmol/L (136-145); Total Bilirubin 0.4 mg/dL (0.15-1.2); Total Protein 6.8 g/dL (6.6-8.7)
[2023-04-04 17:43] VITALS: BP 108/73; PULSE 66; O2SAT 93
[2023-04-04 17:48] LABS: Alcohol Level 337 mg/dL (0-10)
[2023-04-04 17:53] LABS: Troponin(5th) Baseline 28 ng/L (0-15)
[2023-04-04] MEDS: aluminum-mag hydrox-simethicon 30 ML, sucralfate oral liq 1 GM PO (18:13)
[2023-04-04 18:30] VITALS: BP 106/71; O2SAT 91
[2023-04-04 19:28] LABS: Troponin 5 2HR 23.37 ng/L (0-15)
[2023-04-04 19:30] LABS: Troponin 5 2HR Delta -4.63 ABS# (0-10)
== END 2023-04-04 20:52 | disposition home or self-care (01) ==
PROVIDERS: Family Medicine; Emergency Provider Emergency Medicine; PCP Family Medicine
DX: R07.9 Chest pain, unspecified (principal); F10.129 Alcohol abuse with intoxication, unspecified; Y90.8 Blood alcohol level of 240 mg/100 ml or more; Z79.84 Long term (current) use of oral hypoglycemic drugs; Z79.82 Long term (current) use of aspirin; Z79.02 Long term (current) use of antithrombotics/antiplatelets; I25.10 Atherosclerotic heart disease of native coronary artery without angina pectoris; E11.9 Type 2 diabetes mellitus without complications; I10 Essential (primary) hypertension; E78.5 Hyperlipidemia, unspecified
CPT/HCPCS: 36415; 71045; 80053; 80307; 82140; 83690; 84484; 85025; 85610; 85730; 93005; 99285; J7120

== ENCOUNTER 2023-10-29 13:25 | Emergency (ER) | payer MEDICAID, SELFPAY ==
[2023-10-29 13:27] VITALS: BP 188/94; PULSE 90; RESP 16; TEMP 37.1; O2SAT 96; BMI 22.4
--- NOTE | 2023-10-29 13:33 | CT_ITS ---
WS: [id number] CT ABDOMEN PELVIS TECHNIQUE: Noncontrast CT of the abdomen and pelvis with coronal and sagittal reformatted images. CLINICAL INFORMATION: flank pain COMPARISON: 12/24/2022 DLP: 505.[address] scans at [facility] use at least one of these dose optimization techniques: automated e xposure control; mA and/or kV adjustment per patient size (includes targeted exams where dose is matc hed to clinical indication); or iterative reconstruction. FINDINGS: No hydronephrosis in either kidney. No obstructing renal or ureteral calculi. Incidental bilateral re nal cysts. Some are too small to characterize. A few increased attenuation tiny lesions likely hemorr hagic or proteinaceous cyst. Lung bases are well aerated. Mild hepatomegaly and splenomegaly. Spleen measures 14.7 cm [id number] . This is similar to the prior study. Normal GE junction. Previously described cystic pancreatic lesi ons better seen on the prior contrast-enhanced CT. Normal gallbladder. Normal caliber abdominal aorta . Aortic calcification. No evidence of acute appendicitis. IMPRESSION: 1. No obstructing renal or ureteral calculi. No hydronephrosis. 2. No visualized urethral stones. 3. Mild hepatomegaly and splenomegaly unchanged. 4. Bilateral renal cysts. No hydronephrosis. 5. No other acute findings.
[2023-10-29 13:43] LABS: Basophils # 0.1 10^3/uL (0.0-0.1); Basophils % 0.4 %; Eosinophils # 0.1 10^3/uL (0.0-0.8); Eosinophils % 0.4 %; Hematocrit 51.3 % (37-53); Lymphocytes # 2.7 10^3/uL (0.8-4.8); Lymphocytes % 19.4 %; Mean Corpuscular HGB Conc 34.9 g/dL (30-55); Mean Corpuscular Volume 85.9 fl (82-101); Monocytes # 0.7 10^3/uL (0.2-0.9); Monocytes % 5.2 %; Neutrophils # 10.29 10^3/uL (1.8-7.7); Neutrophils % 74.3 %; Nucleated Red Blood Cells % 0 %; Platelet Count 183 10^3/cmm (157-399); Red Blood Count 5.97 10^6/uL (3.85-5.65); Red Cell Distribution Width 13.4 % (12.1-15.1); White Blood Count 13.85 10^3/uL (3.29-11.43)
[2023-10-29 13:59] LABS: Alanine Aminotransferase 13 U/L (0-41); Albumin Level 4.9 g/dL (3.5-5.2); Alkaline Phosphatase 110 U/L (40-130); Aspartate Amino Transferase 13 U/L (0-40); Blood Urea Nitrogen 15 mg/dL (6-20); Calcium 9.8 mg/dL (8.5-10.5); Carbon Dioxide 23 mmol/L (22-29); Chloride 97 mmol/L (98-107); Globulin 3.2 g/dL (1.3-4.6); Glomerular Filtration Rate 69.7 mL/min (90-130); Glucose 200 mg/dL (65-115); Osmolality Calculated 284 mOsm/kg (285-295); Sodium 134 mmol/L (136-145); Total Bilirubin 0.5 mg/dL (0.15-1.2); Total Protein 8.1 g/dL (6.6-8.7)
[2023-10-29 14:29] LABS: Add Urine Microscopic? YES; Bilirubin Urine Neg (Negative); Blood Urine Neg (Negative); Glucose Urine UA 2+ (Normal); Ketones Urine 1+ (Negative); Leukocyte Esterase Urine 1+ (Negative); Nitrate Urine Negative (Negative); Protein Urine 1+ (Negative); Specific Gravity, Urine 1.025 (1.005-1.030); Urine Appearance SL Hazy (CLEAR); Urine Color Yellow (Yellow); Urobilinogen Urine 4 mg/dL (Negative); pH Urine 5 (5-7)
[2023-10-29 14:30] LABS: Bacteria Urine TRACE /hpf; Squamous Epithelial Cell Urine 0-4 /hpf (0-5); WBC Urine 0-4 /hpf (0-5)
[2023-10-29 14:31] LABS: Add Urine Culture? No; Amorphous Sediment Urine 1+ /hpf; Mucus Urine TRACE /hpf
--- NOTE | 2023-10-29 15:43 | W.ED.MALEGU ---
HPI - Male Genitourinary General: Chief complaint: Urogenital-Male Stated complaint: pain while urinating Time Seen by Provider: 10/29/23 13:32 Source: patient Mode of arrival: ambulatory History of Present Illness: 33-year-old male presents emergency room complaining of dysuria. He is convinced he has a ureteral stone he says a history of nephrolithiasis in the past. Denies any hematuria. Late in the visit patient admitted that his girlfriend had trichomonas a few months ago they did not both take antibiotics simultaneously and had unprotected intercourse after that. He has been on doxycycline and Flomax for the last week and a half. MD Complaint: dysuria and possible STD exposure Onset (ago): day(s) Duration: constant Location: penis Relieving factors: none Exacerbating factors: none Associated symptoms: Reports dysuria; Deny discharge, fevers/chills, hematuria, nausea, rash, swelling, urinary incontinence, urinary retention, mass or vomiting Review of Systems GI: Denies: nausea or vomiting : Reports: dysuria; Denies: urinary incontinence or hematuria [facility] ED PFSH: Medical History Alcoholic liver disease CAD (coronary artery disease) Diabetes HTN (hypertension) Hyperlipidemia Kidney stones Pancreatitis, chronic Surgical History Stented coronary artery Family History Mother CAD (coronary artery disease), Onset Age: 55 Stroke Social History Quit status (tobacco/nicotine): has tried quititng Number of times tried to quit tobacco: 6 Second hand smoke exposure: Yes Alcohol intake: former Former alcohol use details: Takes a Shot occasionally Substance/Drug Use: current Current gender identity: Male and Female Course Vital Signs: Vital signs: Vital Signs Temperature 98.8 F 10/29/23 13:27 Pulse Rate 87 10/29/23 16:19 Respiratory Rate 16 10/29/23 13:27 Blood Pressure 188/94 10/29/23 13:27 Pulse Oximetry 97 10/29/23 16:19 Oxygen Delivery Me thod Room Air 10/29/23 13:27 MDM - Male Medical Decision Making Patient describing urethritis. Labs and imaging reviewed. Patient does admit to having unprotected intercourse with his girlfriend who had trichomonas. He is was on doxycycline for a time but stopped. Will patient given ceftriaxone and Zithromax here discharged home on a full course of doxycycline. Encouraged to follow-up. [place] and GC and chlamydia done on urine today. If symptoms persist follow-up with your primary care doctor Medical Records I reviewed the patient's medical records. Lab Data I reviewed the patient's lab results. 10/29/23 13:36 10/29/23 13:36 Laboratory Results WBC 13.85 10^3/uL (3.29-11.43) H 10/29/23 13:36 RBC 5.97 10^6/uL (3.85-5.65) H 10/29/23 13:36 Hgb 17.90 g/dL (11.27-16.99) H 10/29/23 13:36 Hct 51.3 % (37-53) 10/29/23 13:36 MCV 85.9 fl (82-101) 10/29/23 13:36 MCH 30.0 pg (27-33) 10/29/23 13:36 MCHC 34.9 g/dL (30-55) 10/29/23 13:36 RDW 13.4 % (12.1-15.1) 10/29/23 13:36 Plt Count 183 10^3/cmm (157-399) 10/29/23 13:36 MPV 11.0 fL (7.4-10.4) H 10/29/23 13:36 Neut % (Auto) 74.3 % 10/29/23 13:36 Lymph % (Auto) 19.4 % 10/29/23 13:36 [place] % (Auto) 5.2 % 10/29/23 13:36 Eos % (Auto) 0.4 % 10/29/23 13:36 Baso % (Auto) 0.4 % 10/29/23 13:36 Neut # (Auto) 10.29 10^3/uL (1.8-7.7) H 10/29/23 13:36 Lymph # (Auto) 2.7 10^3/uL (0.8-4.8) 10/29/23 13:36 [place] # (Auto) 0.7 10^3/uL (0.2-0.9) 10/29/23 13:36 Eos # (Auto) 0.1 10^3/uL (0.0-0.8) 10/29/23 13:36 Baso # (Auto) 0.1 10^3/uL (0.0-0.1) 10/29/23 13:36 Nucleated RBC % (auto) 0 % 10/29/23 13:36 Nucleated RBCs # 0.0 /100WBC 10/29/23 13:36 Sodium 134 mmol/L (136-145) L 10/29/23 13:36 Potassium 4.0 mmol/L (3.5-5.1) 10/29/23 13:36 Chloride 97 mmol/L (98-107) L 10/29/23 13:36 Carbon Dioxide 23 mmol/L (22-29) 10/29/23 13:36 Anion Gap 18.0 (5-19) 10/29/23 13:36 BUN 15 mg/dL (6-20) 10/29/23 13:36 Creatinine 1.2 mg/dL (0.7-1.2) 10/29/23 13:36 GFR Calculation 69.7 mL/min (90-130) L 10/29/23 13:36 Glucose 200 mg/dL (65-115) H 10/29/23 13:36 Calculated Osmolality 284 mOsm/kg (285-295) L 10/29/23 13:36 Calcium 9.8 mg/dL (8.5-10.5) 10/29/23 13:36 Total Bilirubin 0.5 mg/dL (0.15-1.2) 10/29/23 13:36 AST 13 U/L (0-40) 10/29/23 13:36 ALT 13 U/L (0-41) 10/29/23 13:36 Alkaline Phosphatase 110 U/L (40-130) 10/29/23 13:36 Total Protein 8.1 g/dL (6.6-8.7) 10/29/23 13:36 Albumin 4.9 g/dL (3.5-5.2) 10/29/23 13:36 Globulin 3.2 g/dL (1.3-4.6) 10/29/23 13:36 Urine Color Yellow (Yellow) 10/29/23 13:56 Urine Appearance Sl hazy (CLEAR) A 10/29/23 13:56 Urine pH 5 (5-7) 10/29/23 13:56 Ur Specific [place] 1.025 (1.005-1.030) 10/29/23 13:56 Urine Protein 1+ (Negative) H 10/29/23 13:56 Urine Glucose (UA) 2+ (Normal) H 10/29/23 13:56 Urine Ketones 1+ (Negative) H 10/29/23 13:56 Urine Blood Neg (Negative) 10/29/23 13:56 Urine Nitrate Negative (Negative) 10/29/23 13:56 Urine Bilirubin Neg (Negative) 10/29/23 13:56 Urine Urobilinogen 4 mg/dL (Negative) H 10/29/23 13:56 Ur Leukocyte Esterase 1+ (Negative) H 10/29/23 13:56 Urine RBC None /hpf (0-2) 10/29/23 13:56 Urine WBC 0-4 /hpf (0-5) H 10/29/23 13:56 Ur Squamous Epith Cells 0-4 /hpf (0-5) H 10/29/23 13:56 Amorphous Sediment 1+ /hpf 10/29/23 13:56 Urine Bacteria Trace /hpf (NONE) 10/29/23 13:56 Urine Mucus Trace /hpf 10/29/23 13:56 C.trachomatis RNA (TMA) Not detected (NOT DETECTED) 10/29/23 16:02 Chlamydia/GC Comment See note 10/29/23 16:02 N.gonorrhoeae RNA (TMA) Not detected (NOT DETECTED) 10/29/23 16:02 T. vaginalis (PCR) Not detected (NOT DETECTED) 10/29/23 16:02 All radiology interpretation(s) finalized by discharge Discharge Plan Discharge Patient Disposition: Home Clinical Impression: Urethritis Condition: Stable Prescriptions: New tamsulosin 0.4 mg capsule 0.4 mg PO DAILY Qty: 30 0RF doxycycline hyclate 100 mg capsule 100 mg PO BID 14 Days Qty: 28 0RF No Action clonazepam 1 mg tablet 1 mg PO QPM losartan 50 mg tablet 75 mg PO DAILY Qty: 135 2RF clonidine HCl 0.2 mg tablet 0.2 mg PO BID pantoprazole 40 mg tablet,delayed release (DR/EC) 40 mg PO DAILY aspirin 81 mg tablet,chewable 81 mg PO DAILY atorvastatin 40 mg tablet 40 mg PO DAILY clopidogrel 75 mg tablet 75 mg PO DAILY isosorbide dinitrate 10 mg tablet 10 mg PO BID Rx Instructions: allow nitrate-free interval of 12-14 hrs per 24-hr period oxycodone 15 mg tablet 15 mg PO BID PRN (Reason: Pain) nitroglycerin 0.4 mg tablet, sublingual 0.4 mg sublingual Q5M PRN (Reason: chest pain) Qty: 25 0RF Rx Instructions: do not exceed 3 doses per episode nifedipine 90 mg tablet extended release 90 mg PO DAILY Qty: 90 0RF Rx Instructions: Needs follow-up for further refills baclofen 10 mg tablet 10 mg PO QPM trazodone 150 mg tablet 150 mg PO BEDTIME Lantus Solostar U-100 Insulin 100 unit/mL (3 mL) insulin pen 40 unit SUBCUT QPM Men's Multivitamin 400-20-300 mcg Tablet 1 tab PO DAILY melatonin 10 mg Tablet 10 mg PO BEDTIME Discharge Orders: Discharge ED (Routine); Ordered 10/29/23 Ordered By: Andrea Armstrong Referrals: Joann Merida, [Primary Care Provider] - Patient Instructions: Opioid Safety, Pain Management Activity Restrictions/Additional Instructions: Thank you for choosing [facility] for your healthcare needs today. Please realize this is an emergency room and that we are providing you with a medical screening exam and this may not be complete and all inclusive of all the testing and or work up that you may need to determine your ailment or severity of your illness. It is very important that you follow up as instructed or that you return to the Emergency Department should you have concerns or if your condition changes or worsens in any way. You are seen today with concerns of urinary tract symptoms. CT did not show any stones or evidence of recently passed stones. Some of your urinary tract symptoms may be from urethritis inflammation of the urethra this may be due to the exposure to trichomonas you reported from unprotected sex. You were treated empirically with antibiotics in the emergency room. Recommend you also take doxycycline 100 mg twice a day for 14 days. 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
[2023-10-29] MEDS: cefTRIAXone 500 MG in water for injection-sterile 1 ML IM (15:52)
[2023-10-29] MEDS: azithromycin 250 mg Tablet 1000 MG PO (15:52)
[2023-10-29 16:19] VITALS: PULSE 87; O2SAT 97
[2023-10-31 10:15] LABS: Chlamydia Trachomatis RNA TMA NOT DETECTED (NOT DETECTED); Neisseria Gonorrhoeae RNA, TMA NOT DETECTED (NOT DETECTED)
[2023-10-31 11:55] LABS: Trichomonas Vaginalis TMA Male NOT DETECTED (NOT DETECTED)
== END 2023-10-29 16:21 | disposition home or self-care (01) ==
PROVIDERS: Emergency Provider Family Medicine; PCP Family Medicine
DX: N34.2 Other urethritis (principal); Z79.02 Long term (current) use of antithrombotics/antiplatelets; Z79.82 Long term (current) use of aspirin; Z79.4 Long term (current) use of insulin; Z77.22 Contact with and (suspected) exposure to environmental tobacco smoke (acute) (chronic); I25.10 Atherosclerotic heart disease of native coronary artery without angina pectoris; E11.9 Type 2 diabetes mellitus without complications; I10 Essential (primary) hypertension; E78.5 Hyperlipidemia, unspecified
CPT/HCPCS: 74176; 80053; 81001; 85025; 87491; 87591; 87661; 99284; J0696; Q0144

== ENCOUNTER 2025-02-27 13:18 | Inpatient (IN) | payer BC, MEDICAID, SELFPAY ==
[2025-02-27] VITALS (8 sets, daily range): BP systolic 124–207; BP diastolic 86–123; PULSE 91–114; RESP 16–20; TEMP 36.7–36.8; O2SAT 95–99; BMI 24.3
--- NOTE | 2025-02-27 13:32 | W.ED.ALCOHOL ---
HPI - Alcohol General: Chief Complaint: Alcohol Stated Complaint: ETOH Time Seen by Provider: 02/27/25 13:25 Source: patient Mode of arrival: ambulatory Limitations: no limitations History of Present Illness: 35-year-old male states he has been drinking heavily today. Does have a history alcoholism patient is intoxicated here he is able to ambulate answer questions he denies being suicidal or homicidal. Associated symptoms: Reports depression and suicidal ideation; Deny abdominal pain, nausea or vomiting Related Data Home Medications ?Medication ?Instructions ?Recorded ?Confirmed clonidine HCl 0.2 mg tablet 0.2 mg PO BID 08/10/20 10/29/23 aspirin 81 mg chewable tablet 81 mg PO DAILY 05/15/21 10/29/23 atorvastatin 40 mg tablet 40 mg PO DAILY 05/15/21 10/29/23 clopidogrel 75 mg tablet 75 mg PO DAILY 05/15/21 10/29/23 isosorbide dinitrate 10 mg tablet 10 mg PO BID 05/15/21 10/29/23 oxycodone 15 mg tablet 15 mg PO BID PRN Pain 05/15/21 10/29/23 clonazepam 1 mg tablet 1 mg PO QPM 09/26/21 10/29/23 pantoprazole 40 mg tablet,delayed 40 mg PO DAILY 09/26/21 10/29/23 release baclofen 10 mg tablet 10 mg PO QPM 10/29/23 10/29/23 insulin glargine 100 unit/mL (3 40 unit SUBCUT QPM 10/29/23 10/29/23 mL) subcutaneous pen (Lantus Solostar U-100 Insulin) melatonin 10 mg tablet 10 mg PO BEDTIME 10/29/23 10/29/23 zslxljeo-[id number]-[id number] acid 400 1 tab PO DAILY 10/29/23 10/29/23 mcg-vit K 20 mcg-lycop 300 mcg tablet trazodone 150 mg tablet 150 mg PO BEDTIME 10/29/23 10/29/23 Previous Rx's ?Medication ?Instructions ?Recorded nitroglycerin 0.4 mg sublingual 0.4 mg sublingual Q5M PRN chest 05/20/21 tablet pain #25 tabs losartan 50 mg tablet 75 mg (1.5 x 50 mg) PO DAILY #135 09/26/21 tabs nifedipine 90 mg tablet,extended 90 mg PO DAILY #90 tabs 05/30/22 release tamsulosin 0.4 mg capsule 0.4 mg PO DAILY #30 caps 10/29/23 Allergies Allergy/AdvReac Type Severity Reaction Status Date / Time No Known Allergies Allergy Verified 04/04/23 16:43 Review of Systems Const: Denies: fever(s), chills, body aches or change in appetite ENMT: Denies: throat pain or dental pain Card: Denies: chest pain Resp: Denies: dyspnea GI: Denies: abdominal pain, nausea, vomiting or diarrhea : Denies: dysuria Musc: Denies: neck pain or back pain Skin/Breast: Denies: rash Neuro: Denies: headache(s) Psych: Reports: depression and suicidal ideation PFSH ED PFSH: Medical History Alcoholic liver disease CAD (coronary artery disease) Diabetes HTN (hypertension) Hyperlipidemia Kidney stones Pancreatitis, chronic Surgical History Stented coronary artery Family History Mother CAD (coronary artery disease), Onset Age: 55 Stroke Social History Quit status (tobacco/nicotine): has tried quititng Number of times tried to quit tobacco: 6 Second hand smoke exposure: Yes Alcohol intake: former Former alcohol use details: Takes a Shot occasionally Substance/Drug Use: current Current gender identity: Male and Female Physical Exam Const: COMMON NORMALS: patient oriented x3 OTHER: intoxicated HENMT: COMMON NORMALS: normocephalic and atraumatic HEAD & SCALP: normocephalic and atraumatic Eye: COMMON NORMALS: Equal, round and reactive pupils present and EOMs intact bilaterally PUPIL: Yes Equal, round and reactive pupils present Neck/C-Spine: COMMON NORMALS: full ROM and supple Chest: COMMONS NORMALS: normal inspection of the chest and normal palpation of entire chest wall Resp: COMMON NORMALS: normal respiratory effort, No retractions, No use of accessory muscles and clear to auscultation bilaterally AUSCULTATION: clear to auscultation bilaterally Cardio: COMMON NORMALS: regular rate, regular rhythm and No murmurs present (Cardio) RATE: regular rate RHYTHM: regular rhythm GI: COMMON NORMALS: Normal to inspection, nondistended, normoactive bowel sounds present, Soft to palpation, non-tender and no masses PALPATION: Yes Soft to palpation Extremity: COMMON NORMALS: normal to inspection and full ROM Neuro: COMMON NORMALS: patient oriented x3, moves all extremities and no focal motor deficits Psych: COMMON NORMALS: mental status grossly normal, Normal thought process present and cooperative THOUGHT PROCESS: Normal thought process present Skin: COMMON NORMALS: no rashes or lesions noted and no wounds GENERAL SKIN EXAM: no rashes or lesions noted Course Vital Signs: Vital signs: Vital Signs Temperature 98.3 F 02/27/25 13:24 Pulse Rate 107 H 02/27/25 13:24 Respiratory Rate 16 02/27/25 13:24 Blood Pressure 193/91 02/27/25 13:24 Pulse Oximetry 95 02/27/25 13:24 Oxygen Delivery Me thod Room Air 02/27/25 13:24 MDM - Alcohol Medical Decision Making Patient presents for suicidal ideations along with alcohol intoxication he is placed under 96-hour hold by police spoke to psychiatrist will admit here. Medical Records I reviewed the patient's medical records. Lab Data I reviewed the patient's lab results. 02/27/25 17:07 02/27/25 17:07 Laboratory Results WBC 5.14 10^3/uL (3.29-11.43) 02/27/25 17:07 RBC 6.06 10^6/uL (3.85-5.65) H 02/27/25 17:07 Hgb 15.70 g/dL (11.27-16.99) 02/27/25 17:07 Hct 47.2 % (37-53) 02/27/25 17:07 MCV 77.9 fl (82-101) L 02/27/25 17:07 MCH 25.9 pg (27-33) L 02/27/25 17:07 MCHC 33.3 g/dL (30-55) 02/27/25 17:07 RDW 21.1 % (12.1-15.1) H 02/27/25 17:07 Plt Count 159 10^3/cmm (157-399) 02/27/25 17:07 MPV 9.9 fL (7.4-10.4) 02/27/25 17:07 Neut % (Auto) 62.4 % 02/27/25 17:07 Lymph % (Auto) 25.9 % 02/27/25 17:07 [place] % (Auto) 10.3 % 02/27/25 17:07 Eos % (Auto) 0.2 % 02/27/25 17:07 Baso % (Auto) 0.8 % 02/27/25 17:07 Neut # (Auto) 3.21 10^3/uL (1.8-7.7) 02/27/25 17:07 Lymph # (Auto) 1.3 10^3/uL (0.8-4.8) 02/27/25 17:07 [place] # (Auto) 0.5 10^3/uL (0.2-0.9) 02/27/25 17:07 Eos # (Auto) 0.0 10^3/uL (0.0-0.8) 02/27/25 17:07 Baso # (Auto) 0.0 10^3/uL (0.0-0.1) 02/27/25 17:07 Nucleated RBC % (auto) 0 % 02/27/25 17:07 Nucleated RBCs # 0.0 /100WBC 02/27/25 17:07 Sodium 135 mmol/L (136-145) L 02/27/25 17:07 Potassium 3.7 mmol/L (3.5-5.1) 02/27/25 17:07 Chloride 95 mmol/L (98-107) L 02/27/25 17:07 Carbon Dioxide 17 mmol/L (22-29) L 02/27/25 17:07 Anion Gap 26.7 (5-19) H 02/27/25 17:07 BUN 10 mg/dL (6-20) 02/27/25 17:07 Creatinine 0.7 mg/dL (0.7-1.2) 02/27/25 17:07 GFR Calculation 128.3 mL/min (90-130) 02/27/25 17:07 Glucose 220 mg/dL (65-115) H 02/27/25 17:07 POC Glucose 221 mg/dL (70-110) H 02/27/25 16:49 Calculated Osmolality 286 mOsm/kg (285-295) 02/27/25 17:07 Calcium 8.4 mg/dL (8.5-10.5) L 02/27/25 17:07 Total Bilirubin 0.8 mg/dL (0.15-1.2) 02/27/25 17:07 AST 161 U/L (0-40) H 02/27/25 17:07 ALT 141 U/L (0-41) H 02/27/25 17:07 Alkaline Phosphatase 163 U/L (40-130) H 02/27/25 17:07 Total Protein 7.2 g/dL (6.6-8.7) 02/27/25 17:07 Albumin 4.2 g/dL (3.5-5.2) 02/27/25 17:07 Globulin 3.0 g/dL (1.3-4.6) 02/27/25 17:07 Salicylates < 0.3 mg/dL (3-10) L 02/27/25 17:07 Urine Opiates Screen Negative ng/mL (Negative) 02/27/25 16:34 Acetaminophen < 5.0 ug/mL (10-30) L 02/27/25 17:07 Ur Barbiturates Screen Negative ng/mL (Negative) 02/27/25 16:34 Ur Phencyclidine Scrn Negative ng/mL (Negative) 02/27/25 16:34 Ur Amphetamines Screen Negative ng/mL (Negative) 02/27/25 16:34 U Benzodiazepines Scrn Negative ng/mL (Negative) 02/27/25 16:34 Urine Cocaine Screen Negative ng/mL (Negative) 02/27/25 16:34 U Marijuana (THC) Screen Positive ng/mL (Negative) H 02/27/25 16:34 Ethyl Alcohol 257 mg/dL (0-10) H 02/27/25 17:07 No radiology studies performed this visit Discharge Plan Discharge Patient Disposition: Admitted As Inpatient Admit Provider: Darrius Feliciano Clinical Impression: Alcoholic intoxication, Suicidal ideation Condition: Stable Coding Level of Care Code ED Mold Dresser for Les Martinez
[2025-02-27] MEDS: thiamine 100 mg/mL 2mL SDV IM (14:20)
--- NOTE | 2025-02-27 16:31 | PC.NURSE ---
THIS NURSE SPOKE WITH PT MOTHER REGARDING GIVING PT A RIDE HOME. PT MOTHER INFORMED THIS NURSE THAT SHE WAS IGNORING PHONE CALLS FROM HER SON DUE TO TRYING TO GET PT PLACED ON A 96 HOUR HOLD. PT MOTHER STATED IT WAS JUST APPROVED BY THE COURT AND WE SHOULD BE NOTIFIED SOON.
[2025-02-27 16:52] LABS: Glucose Point of Care 221 mg/dL (70-110)
[2025-02-27 17:08] LABS: Amphetamines Screen Urine Negative (Negative); Barbiturates Screen Urine Negative (Negative); Benzodiazepines Screen Urine Negative (Negative); Cocaine Screen Urine Negative (Negative); Opiate Screen Urine Negative (Negative); PCP Screen Urine Negative (Negative); THC Screen Urine Positive (Negative)
--- NOTE | 2025-02-27 17:17 | PC.NURSE ---
96 hr rights reviewed with pt @[id number] with assistance of [facility] learning officer Erlin [place]. All education reviewed at this time. No verbalized questions or concerns were made to HS. Pt copy was left @bedside with pt. Pt provided a sandwich and soda. No further needs.
[2025-02-27 17:42] LABS: Basophils % 0.8 %; Eosinophils % 0.2 %; Hematocrit 47.2 % (37-53); Lymphocytes # 1.3 10^3/uL (0.8-4.8); Lymphocytes % 25.9 %; Mean Corpuscular HGB Conc 33.3 g/dL (30-55); Mean Corpuscular Hemoglobin 25.9 pg (27-33); Mean Corpuscular Volume 77.9 fl (82-101); Mean Platelet Volume 9.9 fL (7.4-10.4); Monocytes # 0.5 10^3/uL (0.2-0.9); Monocytes % 10.3 %; Neutrophils # 3.21 10^3/uL (1.8-7.7); Neutrophils % 62.4 %; Nucleated Red Blood Cells % 0 %; Platelet Count 159 10^3/cmm (157-399); Red Blood Count 6.06 10^6/uL (3.85-5.65); Red Cell Distribution Width 21.1 % (12.1-15.1); White Blood Count 5.14 10^3/uL (3.29-11.43)
[2025-02-27 18:09] LABS: Alanine Aminotransferase 141 U/L (0-41); Albumin Level 4.2 g/dL (3.5-5.2); Alcohol Level 257 mg/dL (0-10); Alkaline Phosphatase 163 U/L (40-130); Anion Gap 26.7 (5-19); Aspartate Amino Transferase 161 U/L (0-40); Blood Urea Nitrogen 10 mg/dL (6-20); Calcium 8.4 mg/dL (8.5-10.5); Carbon Dioxide 17 mmol/L (22-29); Chloride 95 mmol/L (98-107); Creatinine Clr Calc Pharmacy 174.5692; Glomerular Filtration Rate 128.3 mL/min (90-130); Glucose 220 mg/dL (65-115); Osmolality Calculated 286 mOsm/kg (285-295); Potassium 3.7 mmol/L (3.5-5.1); Sodium 135 mmol/L (136-145); Total Bilirubin 0.8 mg/dL (0.15-1.2); Total Protein 7.2 g/dL (6.6-8.7)
[2025-02-27 18:14] LABS: Acetaminophen < 5.0 ug/mL (10-30); Salicylate < 0.3 mg/dL (3-10)
[2025-02-27] MEDS: cloNIDine 0.1 mg Tablet 0.2 MG PO (18:55)
[2025-02-27] MEDS: NIFEdipine 10 mg Capsule 20 MG PO (18:55)
[2025-02-28] VITALS (18 sets, daily range): BP systolic 152–173; BP diastolic 90–118; PULSE 80–115; RESP 14–27; TEMP 36.4–37; O2SAT 95–99
[2025-02-28] MEDS: LORazepam 2 mg Tablet PO ×4 (00:03→10:01)
--- NOTE | 2025-02-28 01:22 | PC.NURSE ---
Provider Notification At approximately 0000 this nurse scored the pt a 14 on CIWA. Pts blood pressure at this time was 172/87. this nurse administered Ativan 2mg PO to the pt at this time. At approximately 0100 this nurse reassessed pts CIWA and scored him a 12. At this time pts blood pressure was 162/92. This nurse called Dr. Feliciano at 0118 and updated him on pts vital signs and CIWA scores. Provider ordered that pt receive another does of Ativan 2mg PO now.
[2025-02-28] MEDS: hyDROXYzine 25 mg Capsule 50 MG PO (05:04)
--- NOTE | 2025-02-28 06:22 | P.NPUHP_ITS ---
Providers/Chief Complaint 2 Admitting Physician: Darrius Feliciano MD Primary Care Provider: Joann Merida DO Chief Complaint: ETOH HPI NPU History of Present Illness Erlin Hernandez is a 35 year old male who presented to the emergency department with the following report: Chief Complaint: Alcohol Stated Complaint: ETOH Time Seen by Provider: 02/27/25 13:25 Source: patient Mode of arrival: ambulatory Limitations: no limitations History of Present Illness: 35-year-old male states he has been drinking heavily today. Does have a history alcoholism patient is intoxicated here he is able to ambulate answer questions he denies being suicidal or homicidal. Associated symptoms: Reports depression and suicidal ideation; Deny abdominal pain, nausea or vomiting. He was admitted to the neuropsychiatric unit for definitive treatment of those issues. He is known to [facility] psychiatry through outpatient services. An excerpt of his psychiatric evaluation is included below for context and the fact that there have been limited substantive changes. He presents today having presented with a blood alcohol of 257 and a UDS positive for cannabis. He presented reporting: Chief complaint Alcohol detoxification and management of withdrawal symptoms following relapse. History of the present complaint The patient reports experiencing heart attacks in the past, indicating a history of significant cardiac events. The exact age at which these heart attacks occurred is not specified, but they are acknowledged as part of the patient's health problems. The patient has been dealing with these health issues since at least 2019, as mentioned in the transcript. The patient describes a period of reduced alcohol consumption, which was disrupted following marital issues. The patient indicates that their stepped out on them, leading to an increase in drinking again. This suggests a connection between the patient's emotional distress and their alcohol consumption, with the marital problems serving as a trigger for resuming drinking. The patient is currently taking outpatient medication, specifically mentioning nitrate, which is typically used for heart-related conditions. There is no mention of other medications or treatments for mental health conditions such as depression or anxiety, although the patient expresses openness to discussing these issues further. The patient plans to go to their mother's house after the detox period, indicating a support system in place. The patient?s mother is mentioned as someone who will provide care and support, suggesting a reliance on family during this challenging time. There is no mention of other family members or friends involved in the patient's support network. Mental health history Some depression and anxiety has identified in the past evaluation. Social history Has a history of heart attacks. Previously reduced alcohol consumption but resumed drinking following marital issues, specifically after his was unfaithful. Currently undergoing a detox period. Plans to stay at his mother's house post-detox. History of alcohol, tobacco and previous other drug use reported. He is not working primarily because of his health. He has had multiple heart attacks, stents placed and also has diabetes and these things have led to being challenging for him to manage his job. Per his [facility] 08/10/2020 outpatient psychiatric evaluation: [facility] History and Physical Time In: 02:00 Time Out: 02:45 Chief Complaint: I need to get off booze, I need to get sleep, and depression History of Present Illness: This is a 30-year-old male who has no formal past psychiatric history and has never been treated with any medications other than occasional as needed medication upon ER visit. He has a history consistent with severe alcohol use disorder along with recurrent depression and generalized anxiety disorder in addition he also has severe methamphetamine and marijuana use disorders. He was admitted through the [facility] emergency room in January of this year for pancreatitis and ended up being transferred to [facility]. His blood alcohol level at that time was 0.27. He tells me that for years and drinking half gallon of hard liquor a day but more recently 1 to 2 pints. He denies any history of severe DTs, seizures, or severe tremors from withdrawal but he tells me that he is been unsuccessful in stopping alcohol on his own but he has been successful in cutting back. He refuses to go to inpatient detox today which is what I would highly recommend for him as he is at risk of withdrawal. He tells me that he really needs to help take care of his mother who has a number of medical illnesses and he asked today if he can get some medication to help him but down on his alcohol on his own. We agree to starting gabapentin in addition to Seroquel at night for sleep and hydroxyzine as needed for anxiety. We discussed the risks and benefits of all the medications but I also encouraged him to consider inpatient detox as he has a history of severe high blood pressure. I told him that if he is having any tremors and his blood pressure starting to increase he should go to the emergency room. He says the last time he used marijuana or methamphetamine was about 3 months ago because he is currently on probation for child support and is getting urine tested once weekly. He denies any history of admissions, suicide attempts, self-harm, or past. He denies any current suicidal thoughts says he would never hurt himself but he is depressed and is always struggled with anxiety. History Past Psychiatric History: Denies past treatment, admissions, suicide attempts, or self-harm. Family History: He says his father from alcohol-related cirrhosis. Past Medical History: Poorly controlled severe high blood pressure. Substance Use History: Alcohol: Started around age [age] years old, has been a daily heavy drinker for 9 years he says. Currently 1 to 2 pints a day but has had up to 1/2 gallon a day for a number of years. Denies any history of DTs or seizures. Methamphetamine: Started age [age] years old has been a daily user, snorts it, denies intravenous use, last use 3 months ago due to current probation. Marijuana: Started age [age] years old, daily user for years, last use 3-month ago. Social History: He is never been , he has 2 children ages 9 and 11 years old. He is from [place] and grew up there dropped out of school in the 11th grade but was in regular classes. He denies history of trauma. 07/05/2020 [facility] Assessment Date completed: 07/05/20 Time In: 10:00 Time Out: 10:39 Setting: Other (Clinical assessment completed by phone due to Covid-19.) Are you currently in any pain?: Yes Pain location: Abdomen Pain Scale: 7 Pain Frequency: Chronic Duration: months Gender Identity: Male and Female Do you think of yourself as: Straight/Heterosexual Ethnicity: Referral Source: Victoria Morgan APN Marital Status: Nutritional Status Secondary Indicator: Gained more than 10lbs in 3 months Nutritional Assessment: Client Under Care of Primary Care (Victoria Morgan) Food Related Behaviors: Denies Diagnosed Eating Disorder Patient HX Psychosocial History Chief Complaint: was referred here by a [employer]. History of Present Illness: insomnia, addiction, I am a alcoholic, anxiety, I really am a looney tunes, worry all day everyday no matter what, on edge, sleep in nonexistent for me, even taking 300 mg of Trazodone does not work, irritable, been a alcoholic for 12 years, was clean for a couple of months but am drinking again just so I can sleep, and when I sleep it is just bad dreams, depressed, unable to focus on anything, low energy, on probation due to back child support. Client refused to think about rehab, said he would not go, was very defiant and cussed alot during assessment. Childhood/Family History:: I had a great childhood other than dad was a jerk but it is what it is, 2 brothers, was raised in [place]. Current/History Abuse/Trama: None Reported Details of Abuse/Trama: None reported Medical History Primary care Physician: Victoria Morgan APN Other Healthcare Providers: None reported Last Physical Exam: Within past year Allergies No Known Allergies Allergy (Unverified 07/05/20 10:11) Client's Medical History: High Blood Pressure and Other (kidney stones, pancreatitis(chronic), gastritis) Complementary Health Approach: None reported Family History Family History: Diabetes, High Blood Pressure and Heart Disease Family Psychiatric History: Anxiety, Depression and Violent/Abusive Behavior Family Substance Abuse History: Multi-Substance Family Suicide History: Yes Comment: Father killed himself with pills Psychosocial History Psychosocial History History: Client denies service Cultural Background: Raised in [place] Level of Completed Education: Did not complete High School History of Education: quit in 11th grade Academic Performance: Performance at grade level Language(s) Spoken: Japanese Vocational Information: Not looking for work Financial Information: No Current Income Employment History: my pancreatitis flares up so bad I can't work, 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 Legal Status/History: Current legal issues reported Legal Issues Reported: N/A and Current Probation/[place] ([place]) Ability to Care for Self: Reports being able to care for self Current Living Environment: Parent/Immediate Family Social/Peer Setting: Family and Friends Spiritual Pursuits: None Leisure/Recreational: basically drink alot, music helps Individual's Obstacles: Substance Abuse (severe alcoholic), Limited Income, Low Self-Esteem, Chronic Mental Illness, Chaotic Lifestyle, Chronic Physical Illness, Limited Insight, Poor Support System and Legal Problems (probation) Individual's Needs: help with my alcoholism Individual's Strength/Skills: Cooperative, Seeks Treatment, Articulate and Open Minded Individual's Psychiatric History: Anxiety and Depression Past Psychiatric/Substance Abuse Treatment?: No Substance Abuse: Reports Alcohol Age of onset (years): 19 Duration: heavy drinker currently Pattern of use: 1/2 gallon of whiskey daily, Cannabis Age of onset (years): 18 Duration: not for awhile Pattern of use: used before I got put on probation and Nicotine Age of onset (years): 18 Duration: current smoker Pattern of use: 1 1/2 packs daily Consequences of Addictions: Financial Difficulties and Physical/Medical Problems Meds NPU Home Medications ?Medication ?Instructions ?Recorded ?Confirmed ?Last Taken ?Type clonidine HCl 0.2 mg tablet 0.2 mg PO BID 08/10/2010/29/23 History atorvastatin 40 mg tablet 40 mg PO DAILY 05/15/2102/0610/29/23 History clopidogrel 75 mg tablet 75 mg PO DAILY 05/15/2102/0610/29/23 History isosorbide dinitrate 10 mg tablet 10 mg PO BID 1 03/01/25 10/29/23 History oxycodone 15 mg tablet 15 mg PO BID PRN Pain 03/01/25 10/29/23 History nitroglycerin 0.4 mg sublingual 0.4 mg sublingual Q5M PRN chest 05/20/21 03/01/25 Unknown Rx tablet pain #25 tabs clonazepam 1 mg tablet 1 mg PO QPM 09/26/21 5 10/28/23 History pantoprazole 40 mg tablet,delayed 40 mg PO DAILY 09/2603/01/25 10/29/23 History release insulin glargine 100 unit/mL (3 60 unit SUBCUT BEDTIME 10/29/23 03/01/25 10/28/23 History mL) subcutaneous pen (Lantus Solostar U-100 Insulin) melatonin 10 mg tablet 10 mg PO BEDTIME 10/29/2310/28/23 History sfjpikgd-nrrcmaji-vyxig acid 400 1 tab PO DAILY 03/01/25 10/29/23 History mcg-vit K 20 mcg-lycop 300 mcg tablet albuterol sulfate 2.5 mg/3 mL 2.5 mg continuous nebuli zation Q4H 03/01/25 03/01/25 Unknown History (0.083 %) solution for nebulization PRN Shortness Of B reath albuterol sulfate 90 mcg/actuation 2 puff inhalation Q 6H PRN 03/01/25 03/01/25 Unknown History aerosol inhaler (Ventolin HFA) Shortness Of Breath aspirin 81 mg tablet,delayed 81 mg PO DAILY 03/01/25 0 03/01/25 Unknown History release cholecalciferol (vitamin D3) 1,250 50,000 unit PO Q7D 03/01/25 03/01/25 Unknown History mcg (50,000 unit) capsule insulin lispro 100 unit/mL 10 unit SUBCUT TID 03/01/25 03/01/25 Unknown History subcutaneous pen losartan 50 mg tablet 50 mg PO BID 03/01/25 Unknown History nifedipine 30 mg tablet,extended 30 mg PO BID 03/01/25 03/01/25 Unknown History release 24 hr pregabalin 100 mg capsule 100 mg PO TID PRN Pain 03/0103/01/25 Unknown History sucralfate 1 gram tablet 1 g PO QID 03/01/25 03/01/25 Unknown History tamsulosin 0.4 mg capsule 0.8 mg PO DAILY 03/01/25 Unknown History trazodone 100 mg tablet 200 mg PO BEDTIME 03/01/25 0 03/01/25 Unknown History varenicline tartrate 1 mg tablet 1 mg PO BID 03/01/25 03/01/25 Unknown History Allergies Allergy/AdvReac Type Severity Reaction Status Date / Time No Known Allergies Allergy Verified 04/04/23 16:43 PFSH NPU 2 PFSH: Medical History Diabetes Alcoholic liver disease Hyperlipidemia CAD (coronary artery disease) Pancreatitis, chronic HTN (hypertension) Kidney stones Surgical History Stented coronary artery Family History Mother CAD (coronary artery disease), Onset Age: 55 Stroke Social History Quit status (tobacco/nicotine): has tried quititng Number of times tried to quit tobacco: 6 Second hand smoke exposure: Yes Alcohol intake: former Former alcohol use details: Takes a Shot occasionally Substance/Drug Use: current Current gender identity: Male and Female Mental Status Exam 2 MSE Comments: This is a well-nourished well-developed white male in hospital scrubs with poor grooming and eye contact. No abnormal movements except for psychomotor retardation. Mostly cooperative with exam and mild to moderate distress. Speech was decreased rate and volume. Mood described as depressed, affect congruent. Thought process organized. Thought content: Patient denied suicidal or homicidal ideation but reports he was having some suicidal thoughts that led into the hospital, there were no delusions reported or noted, he denied any auditory or visual hallucinations. Discussion about potential medication for depression and anxiety. Stressors include relationship issues with and alcohol use. Reasoning assessed during detox, with focus on decision-making readiness. Attention and concentration are mostly intact and memory appeared reliable but no more formally tested. He is alert and oriented x 3. Insight and judgment are limited impulse control is impaired. Vitals/I&O/Wt Last Vital Signs Temp 98.1 F 02/27/25 23:58 Pulse 104 H 02/28/25 04:00 Resp 18 02/28/25 04:00 BP 170/90 02/28/25 04:00 Pulse Ox 98 02/28/25 04:00 O2 Del Method Room Air 02/28/25 04:00 Weight last 48 hrs Weight 86.183 kg Data NPU 03/01/25 04:13 03/01/25 08:26 A&P Assessment and plan (1) Alcohol use disorder, severe, dependence: (2) Cannabis use disorder, severe, dependence: (3) Methamphetamine use disorder, severe: (4) Major depressive disorder, recurrent severe without psychotic features: (5) Generalized anxiety disorder: (6) Alcoholic intoxication: (7) Suicidal ideation: (8) Anxiety: Plan This is a 35-year-old white male with a long history of addiction and some mental health challenges along with significant medical comorbidity who presented intoxicated and having significant challenges in his relationship on a 96-hour hold. The patient is experiencing issues related to alcohol use, particularly in the context of relationship stressors, which have led to a relapse in drinking behavior. The patient is currently undergoing a detoxification process and is on a withdrawal protocol. There is an indication of potential underlying depression or anxiety. The patient has a history of heart attacks, subsequent stents, and diabetes which may complicate the current situation. 1. Continue current medication. 2. Encourage individual, group and milieu therapy. 3. Continue every 15 minute checks for safety. 4. Encourage sober living treatment after discharge to the highest level of care to which she is willing to commit. 5. Obtain collateral information. 6. Observe against the backdrop of a 96-hour hold. 7. Hospitalist consult regarding his diabetes and diabetes management. We will await results and follow recommendations as indicated. PDMP PDMP Reviewed: Not Reviewed Involuntary Hold Information 2 Hold Status: Legal Status: 96 Hour Hold Date/Time Hold Expires: 0 03/03/25@1628 Attestations NPU 2 Medical Necessity Statement*: Inpatient hospitalization is medically necessary and the clinically appropriate intervention at this time. We will monitor/initiate medications and make changes as indicated. Will be in the hospital for over 2 midnights. Likely length of stay 5 to 7 days. Coding Level of Care Code Acute Code for [facility] Diagnoses Alcohol use disorder, severe, dependence F10.20 Cannabis use disorder, severe, dependence F12.20 Methamphetamine use disorder, severe F15.20 Major depressive disorder, recurrent severe without psychotic features F33.2 Generalized anxiety disorder F41.1 Alcoholic intoxication F10.929 Suicidal ideation R45.851 Anxiety F41.9
[2025-02-28 07:44] LABS: Glucose Point of Care 175 mg/dL (70-110)
[2025-02-28] MEDS: multivitamin therapeutic Tablet 1 TAB PO (09:06)
[2025-02-28] MEDS: folic acid 1 mg Tablet PO (09:06)
[2025-02-28] MEDS: thiamine 100 mg Tablet PO (09:06)
[2025-02-28] MEDS: acetaminophen 325 mg Tablet 650 MG PO (09:06)
[2025-02-28 11:15] LABS: Glucose Point of Care 254 mg/dL (70-110)
[2025-02-28 12:52] LABS: Estmated Average Glucose 212
[2025-02-28] MEDS: tamsulosin 0.4 mg Capsule PO (13:57)
[2025-02-28] MEDS: atorvastatin 40 mg Tablet PO (13:57)
[2025-02-28] MEDS: aspirin 81 mg Chew Tablet PO (13:57)
[2025-02-28 13:58] LABS: Alanine Aminotransferase 116 U/L (0-41); Albumin Level 4.3 g/dL (3.5-5.2); Alkaline Phosphatase 183 U/L (40-130); Anion Gap 25.4 (5-19); Aspartate Amino Transferase 89 U/L (0-40); Blood Urea Nitrogen 10 mg/dL (6-20); Calcium 9.5 mg/dL (8.5-10.5); Carbon Dioxide 19 mmol/L (22-29); Chloride 85 mmol/L (98-107); Globulin 2.9 g/dL (1.3-4.6); Glucose 341 mg/dL (65-115); Osmolality Calculated 275 mOsm/kg (285-295); Potassium 3.4 mmol/L (3.5-5.1); Sodium 126 mmol/L (136-145); Total Bilirubin 1.8 mg/dL (0.15-1.2); Total Protein 7.2 g/dL (6.6-8.7)
[2025-02-28] MEDS: clopidogrel 75 mg Tablet PO (13:58)
[2025-02-28] MEDS: losartan 50 mg Tablet 75 MG PO (13:58)
[2025-02-28] MEDS: pantoprazole DR 40 mg Tablet PO (13:58)
--- NOTE | 2025-02-28 14:08 | CT_ITS ---
WS: [id number] CT ABDOMEN AND PELVIS NONCONTRAST HISTORY: RUQ pain TECHNIQUE: Imaging performed through the abdomen and pelvis. Coronal and sagittal reformats are submitted. All CT scans at [facility] use at least one of these dose optimization techniques: automated exposure control; mA and/or kV adjustment per patient size (includes targeted exams where dose is matched to clinical indication); or iterative reconstruction. DLP: 686.33 mGy.cm COMPARISON: 10/29/2023 Lower thorax: Lung bases are clear. Visualized heart is normal. Small hiatal hernia. Liver: Moderate hepatomegaly with diffuse hepatic steatosis. No intrahepatic duct dilatation. Variable attenuation in the LEFT lobe of the liver and adjacent the falciform ligament is probably related to areas of focal fatty sparing and hepatic steatosis. Gallbladder: Normal gallbladder. No pericholecystic fluid or cholelithiasis. No gallbladder wall thickening. Pancreas: Pancreatic calcifications. No mass. No acute pancreatitis. Spleen: Normal. Splenic varices. Adrenal glands: Normal. No mass. Right kidney: Low-attenuation mass superior pole 1.6 cm. Noted to be a cyst on a prior CT from 2019. Additional very tiny cortical hypodensities mid and lower kidney. Too small to characterize. Left kidney: Normal size kidney with no mass or hydronephrosis. Aorta: Mild atherosclerosis abdominal aorta with no aneurysm. Long stent in the RIGHT common iliac through external iliac artery identified. No free fluid, intraperitoneal air or significant lymphadenopathy. GI tract: Stomach is distended with fluid. No small bowel obstruction. Normal appendix. No colitis. Abdominal wall: Negative. No hernia. Pelvis: Well-distended urinary bladder. No free fluid. Osseous structures: Unremarkable. CT/CT abdomen pelvis wo con [id number] IMPRESSION: 1. Hepatomegaly with severe hepatic steatosis. Variable attenuation in the LEF T lobe is probably due to areas of focal fatty sparing and hepatic steatosis. 2. Negative gallbladder. 3. No renal obstruction. Stable cortical hypo and hyperdensities since 10/29/19 24. 4. No ascites. No free air. 5. Long RIGHT common iliac stent extending into the external iliac artery. 6. Scattered pancreatic calcifications. Probably related to prior pancreatitis . No acute pancreatitis.
--- NOTE | 2025-02-28 14:08 | US_ITS ---
WS: [id number] RIGHT UPPER QUADRANT ULTRASOUND HISTORY: RIGHT upper quadrant pain. COMPARISON: CT 02/28/2025 Liver: 20.1 cm in length. Enlarged liver. Coarse echotexture. No mass identified. Portal Vein: Normal hepatopetal flow with monophasic waveform. Gallbladder: Normally distended gallbladder. No cholelithiasis. No wall thickening. Small amount of layering sludge. CBD: 0.4 cm Pancreas: Normal size and echogenicity. Right kidney: 11.8 cm in length. Normal size kidney. Cortical cyst upper pole measures 2.2 cm. No obstruction of the kidney. No solid mass identified. Aorta and IVC: Unremarkable abdominal aorta and IVC. No ascites. US/US abdomen limited [id number] IMPRESSION: 1. Small amount of gallbladder sludge. No cholelithiasis. 2. Moderate pedal megaly with mild hepatic steatosis. 3. Cortical cyst superior pole RIGHT kidney, 2.2 cm.
[2025-02-28 14:30] LABS: Ketone (Acetest) Serum Positive (Negative)
[2025-02-28 14:40] LABS: Bilirubin Direct 0.64 mg/dL (0.00-0.30); Bilirubin Indirect 1.16; C Reactive Protein 5.3 mg/L (0.0-4.9); Gamma Glutamyl Transferase 597 U/L (8-61); Lipase 23 U/L (13-60); Total Bilirubin 1.8 mg/dL (0.15-1.2)
[2025-02-28 14:47] LABS: Procalcitonin 0.25 ng/mL (0-0.5)
--- NOTE | 2025-02-28 15:05 | PM.CONSULT ---
Providers/Reason For Consult Consulting Physician/Specialty*: Psychiatry Reason for Consult*: Hyperglycemia Attending Physician: Darrius Feliciano MD Primary Care Provider: Joann Merida DO History of Present Illness History of Present Illness Erlin Hernandez is a 35 year old male with a past medical history of hypertension, hyperlipidemia, CAD, type 2 diabetes mellitus on Lantus who presents to [facility] neuropsychiatric unit, hospitalist team was consulted due to hyperglycemia. Currently patient alert oriented x 3, following all commands, does report feeling nauseous, does have abdominal pain, no diarrhea, history of of alcoholism, -Instructions written for insulin sliding scale -Continue Lantus 30 units subcu p.m. -Blood work ordered -Patient received insulin off sliding scale repeat blood sugar 341 -BMP ordered shows bicarb of 19, anion gap 25.4, ketones positive, A1c 9.0, patient is tachycardic complaining of nausea -Could be alcoholic ketosis and/or diabetic ketoacidosis, potassium 3.4 -Concerns for diabetic ketoacidosis -Orders placed to move patient to ICU -Start D5 normal saline at 125 cc an hour 20 KCl -Patient kept n.p.o. -Will replace potassium give 40 of p.o. potassium with 20 of IV potassium -Recheck BMP every 4 hours, repeat at 4 PM -If potassium is reasonable start insulin drip -DKA protocol -Once blood sugar drops below 200 start D5 half-normal saline with 20 KCl -If potassium drops below 3.5, hold insulin drip replace potassium, once potassium is greater than 4-4.5 will resume insulin drip -Patient also has hyperbilirubinemia, with elevated LFTs elevated alk phos -Lipase ordered within normal limits -With nausea vomiting CT scan abdomen pelvis ordered, gallbladder ultrasound ordered -Blood sugar levels 257, marijuana positive, -CIWA protocol started Review of Systems Const: Reports: fatigue and malaise Card: Denies: chest pain Resp: Denies: dyspnea GI: Reports: abdominal pain and nausea Medications/Allergies Home Medications ?Medication ?Instructions ?Recorded ?Confirmed ?Last Taken ?Type clonidine HCl 0.2 mg tablet 0.2 mg PO BID 08/10/20 10/29/23 10/29/23 History aspirin 81 mg chewable tablet 81 mg PO DAILY 05/15/21 10/29/23 10/29/23 History atorvastatin 40 mg tablet 40 mg PO DAILY 05/15/21 10/29/23 10/29/23 History clopidogrel 75 mg tablet 75 mg PO DAILY 05/15/21 10/29/23 10/29/23 History isosorbide dinitrate 10 mg tablet 10 mg PO BID 05/15/21 10/29/23 10/29/23 History oxycodone 15 mg tablet 15 mg PO BID PRN Pain 05/15/21 10/29/23 10/29/23 History nitroglycerin 0.4 mg sublingual 0.4 mg sublingual Q5M PRN chest 05/20/21 10/29/23 Unknown Rx tablet pain #25 tabs clonazepam 1 mg tablet 1 mg PO QPM 09/26/21 10/29/23 10/28/23 History losartan 50 mg tablet 75 mg (1.5 x 50 mg) PO DAILY #135 09/26/21 10/29/23 10/29/23 Rx tabs pantoprazole 40 mg tablet,delayed 40 mg PO DAILY 09/26/21 10/29/23 10/29/23 History release nifedipine 90 mg tablet,extended 90 mg PO DAILY #90 tabs 05/30/22 10/29/23 10/29/23 Rx release baclofen 10 mg tablet 10 mg PO QPM 10/29/23 10/29/23 10/28/23 History insulin glargine 100 unit/mL (3 40 unit SUBCUT QPM 10/29/23 10/29/23 10/28/23 History mL) subcutaneous pen (Lantus Solostar U-100 Insulin) melatonin 10 mg tablet 10 mg PO BEDTIME 10/29/23 10/29/23 10/28/23 History wqowzjga-wabdpvri-ovvhr acid 400 1 tab PO DAILY 10/29/23 10/29/23 10/29/23 History mcg-vit K 20 mcg-lycop 300 mcg tablet tamsulosin 0.4 mg capsule 0.4 mg PO DAILY #30 caps 10/29/23 Unknown Rx trazodone 150 mg tablet 150 mg PO BEDTIME 10/29/23 10/29/23 10/28/23 History Allergies Allergy/AdvReac Type Severity Reaction Status Date / Time No Known Allergies Allergy Verified 04/04/23 16:43 Current Medications Generic Name Dose Route Start Last Admin Trade Name Freq PRN Reason Stop Dose Admin Acetaminophen 650 mg 02/27/25 20:38 02/28/25 09:06 Acetaminophen 325 Mg Tablet PO 650 mg Q4H PRN Administration MILD PAIN Aspirin 81 mg 02/28/25 12:00 02/28/25 13:57 Aspirin 81 Mg Chew Tablet PO 81 mg DAILY GOLD Administration Atorvastatin Calcium 40 mg 02/28/25 12:00 02/28/25 13:57 Atorvastatin 40 Mg Tablet PO 40 mg DAILY GOLD Administration Clopidogrel Bisulfate 75 mg 02/28/25 12:00 02/28/25 13:58 Clopidogrel 75 Mg Tablet PO 75 mg DAILY GOLD Administration Folic Acid 1 mg 02/28/25 09:00 02/28/25 09:06 Folic Acid 1 Mg Tablet PO 1 mg DAILY GOLD Administration Hydroxyzine Pamoate 50 mg 02/27/25 20:38 02/28/25 05:04 Hydroxyzine 25 Mg Capsule PO 50 mg Q6H PRN Administration ANXIETY Lorazepam 2 mg 02/27/25 22:05 02/28/25 10:01 Lorazepam 2 Mg Tablet PO 2 mg PROTOCOL PRN Administration WITHDRAWAL Protocol Losartan Potassium 75 mg 02/28/25 12:00 02/28/25 13:58 Losartan 50 Mg Tablet PO 75 mg DAILY GOLD Administration Multivitamins Therapeutic 1 tab 02/28/25 09:00 02/28/25 09:06 Multivitamin Therapeutic Tablet PO 1 tab DAILY GOLD Administration Pantoprazole Sodium 40 mg 02/28/25 12:00 02/28/25 13:[address] 40 Mg Tablet PO 40 mg DAILY GOLD Administration Tamsulosin HCl 0.4 mg 02/28/25 12:00 02/28/25 13:57 Tamsulosin 0.4 Mg Capsule PO 0.4 mg DAILY GOLD Administration Thiamine Mononitrate 100 mg 02/28/25 09:00 02/28/25 09:06 Thiamine 100 Mg Tablet PO 100 mg DAILY GOLD Administration PFSH Acute PFSH: Medical History Diabetes Alcoholic liver disease Hyperlipidemia CAD (coronary artery disease) Pancreatitis, chronic HTN (hypertension) Kidney stones Surgical History Stented coronary artery Family History Mother CAD (coronary artery disease), Onset Age: 55 Stroke Social History Quit status (tobacco/nicotine): has tried quititng Number of times tried to quit tobacco: 6 Second hand smoke exposure: Yes Alcohol intake: former Former alcohol use details: Takes a Shot occasionally Substance/Drug Use: current Current gender identity: Male and Female Vitals/I&O/Wt Last Vital Signs Temp 98.6 F 02/28/25 12:00 Pulse 115 H 02/28/25 12:00 Resp 18 02/28/25 12:00 BP 152/92 02/28/25 13:58 Pulse Ox 99 02/28/25 12:00 O2 Del Method Room Air 02/28/25 12:00 Weight last 48 hrs Weight 86.183 kg Physical Exam Const: COMMON NORMALS: no acute distress ORIENTATION/CONSCIOUSNESS: Yes awake, Yes oriented to person and Yes oriented to place; not oriented to time HENMT: COMMON NORMALS: normocephalic HEAD & SCALP: normocephalic Eye: COMMON NORMALS: Equal, round and reactive pupils present PUPIL: Yes Equal, round and reactive pupils present Neck/C-Spine: COMMON NORMALS: no JVD Resp: COMMON NORMALS: normal respiratory effort, No retractions, No use of accessory muscles and clear to auscultation bilaterally AUSCULTATION: clear to auscultation bilaterally Cardio: COMMON NORMALS: no JVD, regular rate, regular rhythm, S1 normal heart sound present and S2 normal heart sound present RATE: regular rate RHYTHM: regular rhythm HEART SOUNDS: S1 normal heart sound present and S2 normal heart sound present GI: OTHER: Abdomen soft, slightly distended, diffuse tenderness, right upper quadrant tenderness, no guarding, no rebound, rigidity Extremity: COMMON NORMALS: no calf tenderness and no pedal edema Neuro: COMMON NORMALS: CN's II-XII intact bilaterally and moves all extremities SENSORIUM/ORIENTATION: Yes oriented to person, Yes oriented to place and No oriented to time Data 02/27/25 17:07 02/28/25 13:30 A&P Assessment and plan (1) Diabetic ketoacidosis: (2) Alcohol use disorder, severe, dependence: (3) Cannabis use disorder, severe, dependence: (4) Alcoholic intoxication: (5) HTN (hypertension): (6) CAD (coronary artery disease): (7) Hyperlipidemia: (8) Diabetes: (9) Alcoholic liver disease: Plan Diabetic ketoacidosis -Once potassium has been repleted - Repeat BMP at 4 PM - Start insulin drip, DKA protocol - DKA protocol - Once blood sugar less than 200 switch to D5 half-normal saline with 20 KCl - Maintain potassium greater than 4-4.5 - Full code - Lovenox for DVT prophylaxis Transaminitis hyperbilirubinemia nausea vomiting - Will do CT scan abdomen pelvis Pseudohyponatremia secondary hyperglycemia Intractable nausea vomiting could be marijuana hyperemesis and alcohol withdrawal Possible alcohol ketosis, IV fluids Alcohol withdrawal, CIWA protocol PDMP PDMP Reviewed: Not Reviewed Consult Attestations Medical Necessity Statement: Patient requires hospitalization for diabetic ketoacidosis, Diagnoses Diabetic ketoacidosis E11.10 Alcohol use disorder, severe, dependence F10.20 Cannabis use disorder, severe, dependence F12.20 Alcoholic intoxication F10.929 Essential hypertension I10 Hypertension type: essential hypertension Coronary artery disease involving [place] coronary artery of [place] heart without angina pectoris I25.10 Coronary Disease-Associated Artery/Lesion type: [place] artery [place] vs. transplanted heart: [place] heart Associated angina: without angina Mixed hyperlipidemia E78.2 Hyperlipidemia type: mixed hyperlipidemia Diabetes E11.9 Alcoholic liver disease K70.9
--- NOTE | 2025-02-28 15:07 | PC.NURSE ---
Dr. Patino called stating that pt labs appeared he is in DKA and he would like him transferred to ICU. Called Suze [place] and let her know that Doc was putting in orders and he would need a bed. I have let pt know.
[2025-02-28 16:13] LABS: ABG PCO2 26.4 mmHg (35-45); Arterial Blood Gas Hematocrit 52.6 % (42-52); Blood Gas Allen Test Pos; Blood Gas Operator Identificat CAK; Blood Gas Sample Site Radial, left; Blood Gas Sample Type Arterial; HCO3 ABG 20.4 mmol/L (22-26); Oxygen Device ROOM AIR; PO2 FiO2 Ratio Arterial Blood 442
[2025-02-28 16:13] LABS: Basophils % 0.3 %; Eosinophils % 0.2 %; Hematocrit 48.3 % (37-53); Lymphocytes # 0.9 10^3/uL (0.8-4.8); Lymphocytes % 13.9 %; Mean Corpuscular HGB Conc 34.8 g/dL (30-55); Mean Corpuscular Hemoglobin 26.8 pg (27-33); Mean Corpuscular Volume 77.2 fl (82-101); Mean Platelet Volume 10.1 fL (7.4-10.4); Monocytes # 0.7 10^3/uL (0.2-0.9); Monocytes % 11.2 %; Neutrophils # 4.91 10^3/uL (1.8-7.7); Neutrophils % 74.1 %; Nucleated Red Blood Cells % 0 %; Platelet Count 141 10^3/cmm (157-399); Red Blood Count 6.26 10^6/uL (3.85-5.65); Red Cell Distribution Width 19.9 % (12.1-15.1); White Blood Count 6.62 10^3/uL (3.29-11.43)
[2025-02-28 16:30] LABS: Lactic Sepsis W/Reflex 1.3 mmol/L (0.5-2.2)
[2025-02-28] MEDS: enoxaparin 40 mg/0.4 mL Syringe SUBCUT (16:37)
[2025-02-28] MEDS: pantoprazole 40 mg SDV IVP (16:37)
[2025-02-28] MEDS: potassium chloride ER 20 mEq Tablet 40 MEQ PO (16:38)
[2025-02-28 16:39] LABS: Anion Gap 25.5 (5-19); Blood Urea Nitrogen 11 mg/dL (6-20); Calcium 9.7 mg/dL (8.5-10.5); Carbon Dioxide 18 mmol/L (22-29); Chloride 86 mmol/L (98-107); Glucose 302 mg/dL (65-115); Magnesium 1.5 mg/dL (1.7-2.3); Osmolality Calculated 273 mOsm/kg (285-295); Phosphorus 2.3 mg/dL (2.5-4.5); Potassium 3.5 mmol/L (3.5-5.1); Sodium 126 mmol/L (136-145); Thyroid Stimulating Hormone 1.42 uIU/mL (0.27-4.20)
[2025-02-28 16:59] LABS: Alcohol Level < 10 mg/dL (0-10)
[2025-02-28] MEDS: lidocaine 1% 5 ML in potassium chloride premix 100 ML 52.5 ML IV (17:01)
[2025-02-28] MEDS: sodium chlor 0.9% + KCl 20 mEq 20 MEQ/1,000 ML BAG 125 MEQ IV (17:10)
[2025-02-28] MEDS: cloNIDine 0.1 mg Tablet 0.2 MG PO (17:53)
[2025-02-28] MEDS: baclofen 10 mg Tablet PO (17:54)
[2025-02-28] MEDS: isosorbide dinitrate 20 mg Tablet 10 MG PO (17:54)
[2025-02-28] MEDS: morphine 4 mg/mL SDV 1 mL 2 MG IVP ×2 (17:54→22:30)
--- NOTE | 2025-02-28 18:33 | PC.NURSE ---
patient reporting pain in abdomen 04/16 notiifed provider received orders for morphine IVP 2mg q4 h
[2025-02-28] MEDS: MELATONIN 3 MG TABLET 9 MG PO (20:05)
[2025-02-28] MEDS: trazodone 150 mg Tablet PO (20:05)
[2025-02-28 20:12] LABS: Anion Gap 27.2 (5-19); Blood Urea Nitrogen 11 mg/dL (6-20); Carbon Dioxide 15 mmol/L (22-29); Chloride 90 mmol/L (98-107); Glucose 254 mg/dL (65-115); Osmolality Calculated 274 mOsm/kg (285-295); Potassium 4.2 mmol/L (3.5-5.1); Sodium 128 mmol/L (136-145)
[2025-02-28] MEDS: INSULIN REGULAR IN 0.9 % NACL 100 UNIT/100 ML BAG IV (20:38)
[2025-02-28 20:43] LABS: Glucose Point of Care 242 mg/dL (70-110)
--- NOTE | 2025-02-28 21:03 | PC.NURSE ---
Insulin drip initiated after follow up BMP to confirm appropriate K+ level after replacement. Blood sugar 240's, deviated from protocol due to lower blood sugar and started at 3 units/hr. Contacted Dr. Corley and confirmed D5 fluid rate and made aware of deviation from protocol and was agreeable.
[2025-02-28] MEDS: D5-NS 0.45% + KCL 20 mEq 20 MEQ/1,000 ML BAG 150 MEQ IV (21:30)
[2025-02-28 21:37] LABS: Glucose Point of Care 215 mg/dL (70-110)
[2025-02-28 22:42] LABS: Glucose Point of Care 222 mg/dL (70-110)
[2025-02-28 22:55] LABS: Bilirubin Urine Negative (Negative); Blood Urine Trace (Negative); Glucose Urine UA 2+ (Normal); Ketones Urine 2+ (Negative); Leukocyte Esterase Urine Negative (Negative); Nitrate Urine Negative (Negative); Protein Urine 2+ (Negative); Urine Appearance Clear (CLEAR); Urine Color Yellow (Yellow)
[2025-02-28 23:00] LABS: Add Urine Microscopic? YES; Bacteria Urine None Seen /hpf; Hyaline Casts Urine 0-4 /lpf; Squamous Epithelial Cell Urine 0-5 /hpf (0-5); WBC Urine 0-5 /hpf (0-5)
[2025-02-28 23:09] LABS: Amphetamines Screen Urine Negative (Negative); Barbiturates Screen Urine Negative (Negative); Benzodiazepines Screen Urine Positive (Negative); Cocaine Screen Urine Negative (Negative); Opiate Screen Urine Positive (Negative); PCP Screen Urine Negative (Negative); THC Screen Urine Positive (Negative)
[2025-02-28 23:44] LABS: Glucose Point of Care 247 mg/dL (70-110)
[2025-03-01] VITALS (30 sets, daily range): BP systolic 109–173; BP diastolic 63–118; PULSE 57–112; RESP 9–22; TEMP 36.9; O2SAT 94–97
[2025-03-01 00:34] LABS: Glucose Point of Care 234 mg/dL (70-110)
[2025-03-01 01:34] LABS: Anion Gap 20.5 (5-19); Blood Urea Nitrogen 10 mg/dL (6-20); Carbon Dioxide 21 mmol/L (22-29); Chloride 94 mmol/L (98-107); Glucose 258 mg/dL (65-115); Osmolality Calculated 282 mOsm/kg (285-295); Potassium 3.5 mmol/L (3.5-5.1); Sodium 132 mmol/L (136-145)
[2025-03-01 01:45] LABS: Glucose Point of Care 240 mg/dL (70-110)
[2025-03-01] MEDS: potassium chloride ER 20 mEq Tablet 40 MEQ PO ×3 (02:38→14:51)
[2025-03-01] MEDS: magnesium sulfate premix 2 GM/50 ML PIGGYBACK IV (02:38)
[2025-03-01 02:43] LABS: Glucose Point of Care 261 mg/dL (70-110)
[2025-03-01] MEDS: LORazepam 2 mg Tablet PO ×2 (02:47→12:37)
[2025-03-01] MEDS: morphine 4 mg/mL SDV 1 mL 2 MG IVP ×3 (02:47→12:42)
[2025-03-01 03:55] LABS: Glucose Point of Care 257 mg/dL (70-110)
[2025-03-01] MEDS: D5-NS 0.45% + KCL 20 mEq 20 MEQ/1,000 ML BAG 150 MEQ IV ×2 (04:42→11:47)
[2025-03-01 04:48] LABS: Glucose Point of Care 207 mg/dL (70-110)
[2025-03-01 05:34] LABS: Glucose Point of Care 168 mg/dL (70-110)
[2025-03-01 05:38] LABS: Basophils % 0.4 %; Eosinophils % 0.7 %; Hematocrit 43.9 % (37-53); Lymphocytes # 2.1 10^3/uL (0.8-4.8); Lymphocytes % 38.1 %; Mean Corpuscular HGB Conc 34.6 g/dL (30-55); Monocytes # 0.6 10^3/uL (0.2-0.9); Monocytes % 10.7 %; Neutrophils # 2.68 10^3/uL (1.8-7.7); Neutrophils % 49.7 %; Nucleated Red Blood Cells % 0 %; Platelet Count 109 10^3/cmm (157-399); Red Blood Count 5.63 10^6/uL (3.85-5.65); Red Cell Distribution Width 19.9 % (12.1-15.1)
[2025-03-01 06:06] LABS: Alanine Aminotransferase 93 U/L (0-41); Albumin Level 3.8 g/dL (3.5-5.2); Alkaline Phosphatase 151 U/L (40-130); Anion Gap 17.6 (5-19); Aspartate Amino Transferase 72 U/L (0-40); Blood Urea Nitrogen 10 mg/dL (6-20); Calcium 8.9 mg/dL (8.5-10.5); Carbon Dioxide 24 mmol/L (22-29); Chloride 95 mmol/L (98-107); Creatinine Clr Calc Pharmacy 174.5692; Globulin 2.6 g/dL (1.3-4.6); Glomerular Filtration Rate 128.3 mL/min (90-130); Glucose 214 mg/dL (65-115); Osmolality Calculated 281 mOsm/kg (285-295); Potassium 3.6 mmol/L (3.5-5.1); Sodium 133 mmol/L (136-145); Total Bilirubin 1.3 mg/dL (0.15-1.2); Total Protein 6.4 g/dL (6.6-8.7)
[2025-03-01 06:23] LABS: Glucose Point of Care 167 mg/dL (70-110)
[2025-03-01 07:23] LABS: Glucose Point of Care 166 mg/dL (70-110)
[2025-03-01] MEDS: NIFEdipine ER (24 hr) 30 mg Tablet 90 MG PO (08:26)
[2025-03-01] MEDS: losartan 50 mg Tablet 75 MG PO (08:27)
[2025-03-01] MEDS: atorvastatin 40 mg Tablet PO (08:28)
[2025-03-01] MEDS: multivitamin therapeutic Tablet 1 TAB PO (08:29)
[2025-03-01] MEDS: pantoprazole DR 40 mg Tablet PO (08:29)
[2025-03-01] MEDS: isosorbide dinitrate 20 mg Tablet 10 MG PO ×2 (08:29→17:51)
[2025-03-01] MEDS: aspirin 81 mg Chew Tablet PO (08:29)
[2025-03-01] MEDS: cloNIDine 0.1 mg Tablet 0.2 MG PO ×2 (08:29→17:51)
[2025-03-01] MEDS: clopidogrel 75 mg Tablet PO (08:29)
[2025-03-01] MEDS: thiamine 100 mg Tablet PO (08:29)
[2025-03-01] MEDS: tamsulosin 0.4 mg Capsule PO (08:29)
[2025-03-01] MEDS: folic acid 1 mg Tablet PO (08:30)
[2025-03-01 08:40] LABS: Glucose Point of Care 198 mg/dL (70-110)
[2025-03-01 08:52] LABS: Blood Urea Nitrogen 10 mg/dL (6-20); Calcium 8.8 mg/dL (8.5-10.5); Carbon Dioxide 19 mmol/L (22-29); Chloride 100 mmol/L (98-107); Creatinine Clr Calc Pharmacy 174.5692; Glomerular Filtration Rate 128.3 mL/min (90-130); Glucose 187 mg/dL (65-115); Osmolality Calculated 278 mOsm/kg (285-295); Sodium 132 mmol/L (136-145)
[2025-03-01 09:36] LABS: Glucose Point of Care 185 mg/dL (70-110)
[2025-03-01 10:52] LABS: Glucose Point of Care 207 mg/dL (70-110)
[2025-03-01 12:01] LABS: Glucose Point of Care 263 mg/dL (70-110)
[2025-03-01 12:18] LABS: Blood Urea Nitrogen 10 mg/dL (6-20); Calcium 8.9 mg/dL (8.5-10.5); Carbon Dioxide 19 mmol/L (22-29); Chloride 99 mmol/L (98-107); Creatinine Clr Calc Pharmacy 174.5692; Glomerular Filtration Rate 128.3 mL/min (90-130); Glucose 221 mg/dL (65-115); Osmolality Calculated 278 mOsm/kg (285-295); Sodium 131 mmol/L (136-145)
[2025-03-01 13:08] LABS: Glucose Point of Care 210 mg/dL (70-110)
[2025-03-01 14:00] LABS: Glucose Point of Care 191 mg/dL (70-110)
[2025-03-01] MEDS: lactated ringers 500 ML 999 ML IV (14:52)
[2025-03-01] MEDS: pantoprazole 40 mg SDV IVP (14:52)
[2025-03-01 15:17] LABS: Glucose Point of Care 209 mg/dL (70-110)
[2025-03-01] MEDS: enoxaparin 40 mg/0.4 mL Syringe SUBCUT (15:31)
[2025-03-01 16:10] LABS: Anion Gap 17.1 (5-19); Blood Urea Nitrogen 9 mg/dL (6-20); Calcium 8.5 mg/dL (8.5-10.5); Carbon Dioxide 18 mmol/L (22-29); Chloride 104 mmol/L (98-107); Glomerular Filtration Rate 153.3 mL/min (90-130); Glucose 192 mg/dL (65-115); Osmolality Calculated 284 mOsm/kg (285-295); Potassium 4.1 mmol/L (3.5-5.1); Sodium 135 mmol/L (136-145)
[2025-03-01 16:18] LABS: Glucose Point of Care 198 mg/dL (70-110)
--- NOTE | 2025-03-01 16:37 | P.PN_ITS ---
Subjective 2 Subjective: Patient was seen this morning, denies any fevers, chills, no cough, no nausea, no vomiting. Discussed his alcoholism, he tells me that he is going through a divorce that is why he has gone back to drinking alcohol, he was sober for some period of time Vitals/I&O/Wt Last Vital Signs Temp 98.5 F 03/01/25 07:45 Pulse 112 H 03/01/25 14:00 Resp 17 03/01/25 14:00 BP 143/86 03/01/25 14:00 Pulse Ox 97 03/01/25 14:00 O2 Del Method Room Air 02/28/25 15:02 03/01/25 03/01/25 03/01/25 06:59 14:59 22:59 Intake Total 1059.691 / 5829.444 6268.251 / 1010.251 501.767 / 1512.018 Output Total 800 / 800 650 / 650 Balance 259.691 / 909.808 360.251 / 360.251 501.767 / 862.018 Physical Exam 2 Const: COMMON NORMALS: no acute distress and patient oriented x3 Resp: COMMON NORMALS: normal respiratory effort, No retractions, No use of accessory muscles and clear to auscultation bilaterally AUSCULTATION: clear to auscultation bilaterally Cardio: COMMON NORMALS: regular rate, regular rhythm, S1 normal heart sound present and S2 normal heart sound present RATE: regular rate RHYTHM: r egular rhythm HEART SOUNDS: S1 normal heart sound present and S2 normal heart sound present GI: COMMON NORMALS: Normal to inspection, nondistended, normoactive bowel sounds present and non-tender Extremity: COMMON NORMALS: no pedal edema Neuro: COMMON NORMALS: patient oriented x3 Psych: COMMON NORMALS: mental status grossly normal Data 03/01/25 04:13 03/01/25 15:35 A&P Assessment and plan (1) Diabetic ketoacidosis: (2) Alcohol use disorder, severe, dependence: (3) Cannabis use disorder, severe, dependence: (4) Alcoholic intoxication: (5) HTN (hypertension): (6) CAD (coronary artery disease): (7) Hyperlipidemia: (8) Diabetes: (9) Alcoholic liver disease: Plan Diabetic ketoacidosis -replete potassium - Start insulin drip, DKA protocol - DKA protocol - Once blood sugar less than 200 switch to D5 half-normal saline with 20 KCl - Maintain potassium greater than 4-4.5 - Full code - Lovenox for DVT prophylaxis Transaminitis hyperbilirubinemia nausea vomiting - CT/CT abdomen pelvis wo con [id number] IMPRESSION: 1. Hepatomegaly with severe hepatic steatosis. Variable attenuation in the LEFT lobe is probably due to areas of focal fatty sparing and hepatic steatosis. 2. Negative gallbladder. 3. No renal obstruction. Stable cortical hypo and hyperdensities since 10/29/2023. 4. No ascites. No free air. 5. Long RIGHT common iliac stent extending into the external iliac artery. 6. Scattered pancreatic calcifications. Probably related to prior pancreatitis. No acute pancreatitis Pseudohyponatremia secondary hyperglycemia Intractable nausea vomiting could be marijuana hyperemesis and alcohol withdrawal Possible alcohol ketosis, IV fluids Alcohol withdrawal, CIWA protocol chronic pain -resume elvira oxycodone -resume home clonazepam PDMP PDMP Reviewed: Last Reviewed 03/01/25 15:31 by Everett Patino MD Attestations 2 Medical Necessity Statement*: Patient requires hospitalization for diabetic ketoacidosis, transaminitis, dehydration, nausea vomiting Diagnoses Diabetic ketoacidosis E11.10 Alcohol use disorder, severe, dependence F10.20 Cannabis use disorder, severe, dependence F12.20 Alcoholic intoxication F10.929 Essential hypertension I10 Hypertension type: essential hypertension Coronary artery disease involving [place] coronary artery of [place] heart without angina pectoris I25.10 Coronary Disease-Associated Artery/Lesion type: [place] artery [place] vs. transplanted heart: [place] heart Associated angina: without angina Mixed hyperlipidemia E78.2 Hyperlipidemia type: mixed hyperlipidemia Diabetes E11.9 Alcoholic liver disease K70.9
[2025-03-01 17:09] LABS: Glucose Point of Care 194 mg/dL (70-110)
[2025-03-01] MEDS: oxyCODONE 5 mg IR Tab/Cap 15 MG PO (17:51)
[2025-03-01] MEDS: CLONazepam 1 mg Tablet PO (17:52)
[2025-03-01] MEDS: potassium chloride ER 20 mEq Tablet PO (17:52)
[2025-03-01] MEDS: baclofen 10 mg Tablet PO (17:52)
[2025-03-01] MEDS: insulin glargine 100 units/1 mL 25 UNIT SUBCUT (17:53)
[2025-03-01] MEDS: sodium bicarbonate 650 mg Tablet PO (17:53)
[2025-03-01] MEDS: sodium chloride 0.9% 1,000 ML 125 ML IV (18:04)
[2025-03-01 19:24] LABS: Glucose Point of Care 322 mg/dL (70-110)
[2025-03-01 20:05] LABS: Anion Gap 15.6 (5-19); Blood Urea Nitrogen 9 mg/dL (6-20); Calcium 8.4 mg/dL (8.5-10.5); Carbon Dioxide 18 mmol/L (22-29); Chloride 102 mmol/L (98-107); Creatinine Clr Calc Pharmacy 174.5692; Glomerular Filtration Rate 128.3 mL/min (90-130); Glucose 334 mg/dL (65-115); Osmolality Calculated 284 mOsm/kg (285-295); Potassium 4.6 mmol/L (3.5-5.1); Sodium 131 mmol/L (136-145)
[2025-03-01] MEDS: MELATONIN 3 MG TABLET 9 MG PO (20:07)
[2025-03-01] MEDS: trazodone 150 mg Tablet PO (20:08)
[2025-03-01 20:12] LABS: Glucose Point of Care 316 mg/dL (70-110)
--- NOTE | 2025-03-01 20:12 | P.NPUPN_ITS ---
Subjective NPU 2 Subjective: Patient presented today reporting that things are okay. He identified that he has had a rough time with the combination of his alcohol and his diabetes. We discussed him transferring back to the neuropsychiatric unit once he is medically stable. He denied any side effects to the medication or any need to make any changes. He endorsed commitment to get away from the alcohol use again. Mental Status Exam 2 MSE Comments: This is a well-nourished well-developed white male in hospital scrubs with poor grooming and eye contact. No abnormal movements except for psychomotor retardation. Mostly cooperative with exam and mild to moderate distress. Speech was decreased rate and volume. Mood described as depressed, affect congruent. Thought process organized. Thought content: Patient denied suicidal or homicidal ideation but reports he was having some suicidal thoughts that led into the hospital, there were no delusions reported or noted, he denied any auditory or visual hallucinations. Discussion about potential medication for depression and anxiety. Stressors include relationship issues with and alcohol use. Reasoning assessed during detox, with focus on decision-making readiness. Attention and concentration are mostly intact and memory appeared reliable but no more formally tested. He is alert and oriented x 3. Insight and judgment are limited impulse control is impaired. Vitals/I&O/Wt Last Vital Signs Temp 98.5 F 03/01/25 07:45 Pulse 109 03/01/25 15:00 Resp 18 03/01/25 15:00 BP 154/94 03/01/25 15:00 Pulse Ox 97 03/01/25 15:00 O2 Del Method Room Air 02/28/25 15:02 03/01/25 14:59 Intake Total 1010.251 / 1010.251 Output Total 650 / 650 Balance 360.251 / 360.251 Data NPU 03/02/25 04:28 03/02/25 04:28 A&P Assessment and plan (1) Alcohol use disorder, severe, dependence: (2) Cannabis use disorder, severe, dependence: (3) Methamphetamine use disorder, severe: (4) Major depressive disorder, recurrent severe without psychotic features: (5) Generalized anxiety disorder: (6) Alcoholic intoxication: (7) Suicidal ideation: (8) Anxiety: Plan This is a 35-year-old white male with a long history of addiction and some mental health challenges along with significant medical comorbidity who presented intoxicated and having significant challenges in his relationship on a 96-hour hold. The patient is experiencing issues related to alcohol use, particularly in the context of relationship stressors, which have led to a relapse in drinking behavior. The patient is currently undergoing a detoxification process and is on a withdrawal protocol. There is an indication of potential underlying depression or anxiety. The patient has a history of heart attacks, subsequent stents, and diabetes which may complicate the current situation. 1. Continue current medication. 2. Patient transferred to ICU 3. Continue observation per ICU protocol. 4. Encourage sober living treatment after discharge to the highest level of care to which he is willing to commit. 5. Obtain collateral information. 6. Observe against the backdrop of a 96-hour hold. 7. Hospitalist consult regarding his diabetes and diabetes management. We will await results and follow recommendations as indicated. 8. Appreciate hospitalist consult will allow them to manage DKA in ICU and continue CIWA protocol. PDMP PDMP Reviewed: Not Reviewed Involuntary Hold Information 2 Hold Status: Legal Status: 96 Hour Hold Date/Time Hold Expires: 03/03/2025 @ 1628 Attestations NPU 2 Medical Necessity Statement*: Inpatient hospitalization is medically necessary and the clinically appropriate intervention at this time. We will monitor/initiate medications and make changes as indicated. Likely length of stay 3-5 days. Coding Level of Care Code Acute Code for [facility] Fwd Diagnoses Alcohol use disorder, severe, dependence F10.20 Cannabis use disorder, severe, dependence F12.20 Methamphetamine use disorder, severe F15.20 Major depressive disorder, recurrent severe without psychotic features F33.2 Generalized anxiety disorder F41.1 Alcoholic intoxication F10.929 Suicidal ideation R45.851 Anxiety F41.9
[2025-03-01] MEDS: insulin lispro 100 unit/1 mL SUBCUT (20:15)
[2025-03-02] VITALS (16 sets, daily range): BP systolic 114–151; BP diastolic 64–100; PULSE 58–95; RESP 12–23; TEMP 36.3–36.9; O2SAT 94–98
[2025-03-02] MEDS: sodium bicarbonate 650 mg Tablet PO ×3 (00:17→16:59)
[2025-03-02] MEDS: morphine 4 mg/mL SDV 1 mL 2 MG IVP (00:31)
[2025-03-02 02:33] LABS: Anion Gap 16.8 (5-19); Blood Urea Nitrogen 9 mg/dL (6-20); Carbon Dioxide 19 mmol/L (22-29); Chloride 104 mmol/L (98-107); Glucose 111 mg/dL (65-115); Osmolality Calculated 281 mOsm/kg (285-295); Potassium 3.8 mmol/L (3.5-5.1); Sodium 136 mmol/L (136-145)
[2025-03-02 05:25] LABS: Basophils % 0.4 %; Eosinophils # 0.1 10^3/uL (0.0-0.8); Eosinophils % 1.1 %; Hematocrit 42.9 % (37-53); Lymphocytes % 27.8 %; Mean Corpuscular HGB Conc 33.3 g/dL (30-55); Mean Corpuscular Hemoglobin 26.9 pg (27-33); Mean Corpuscular Volume 80.6 fl (82-101); Mean Platelet Volume 10.5 fL (7.4-10.4); Monocytes # 0.6 10^3/uL (0.2-0.9); Neutrophils % 62.6 %; Nucleated Red Blood Cells % 0 %; Platelet Count 98 10^3/cmm (157-399); Red Blood Count 5.32 10^6/uL (3.85-5.65); Red Cell Distribution Width 20.6 % (12.1-15.1); White Blood Count 7.35 10^3/uL (3.29-11.43)
[2025-03-02 05:55] LABS: Alanine Aminotransferase 102 U/L (0-41); Albumin Level 3.6 g/dL (3.5-5.2); Alkaline Phosphatase 147 U/L (40-130); Blood Urea Nitrogen 9 mg/dL (6-20); Calcium 8.9 mg/dL (8.5-10.5); Carbon Dioxide 17 mmol/L (22-29); Chloride 103 mmol/L (98-107); Creatinine Clr Calc Pharmacy 174.5692; Globulin 2.5 g/dL (1.3-4.6); Glomerular Filtration Rate 128.3 mL/min (90-130); Glucose 138 mg/dL (65-115); Osmolality Calculated 279 mOsm/kg (285-295); Sodium 134 mmol/L (136-145); Total Bilirubin 0.7 mg/dL (0.15-1.2); Total Protein 6.1 g/dL (6.6-8.7)
[2025-03-02 06:02] LABS: Anion Gap 18.2 (5-19); Aspartate Amino Transferase 92 U/L (0-40); Potassium 4.2 mmol/L (3.5-5.1)
[2025-03-02 07:20] LABS: Glucose Point of Care 174 mg/dL (70-110)
[2025-03-02] MEDS: insulin lispro 100 unit/1 mL SUBCUT ×3 (08:34→16:59)
[2025-03-02] MEDS: losartan 50 mg Tablet 75 MG PO (08:34)
[2025-03-02] MEDS: thiamine 100 mg Tablet PO (08:34)
[2025-03-02] MEDS: NIFEdipine ER (24 hr) 30 mg Tablet 90 MG PO (08:37)
[2025-03-02] MEDS: aspirin 81 mg Chew Tablet PO (08:38)
[2025-03-02] MEDS: clopidogrel 75 mg Tablet PO (08:38)
[2025-03-02] MEDS: cloNIDine 0.1 mg Tablet 0.2 MG PO ×2 (08:38→17:11)
[2025-03-02] MEDS: pantoprazole DR 40 mg Tablet PO (08:38)
[2025-03-02] MEDS: tamsulosin 0.4 mg Capsule 0.8 MG PO (08:38)
[2025-03-02] MEDS: multivitamin therapeutic Tablet 1 TAB PO (08:38)
[2025-03-02] MEDS: folic acid 1 mg Tablet PO (08:38)
[2025-03-02] MEDS: atorvastatin 40 mg Tablet PO (08:39)
[2025-03-02] MEDS: isosorbide dinitrate 20 mg Tablet 10 MG PO ×2 (08:39→20:37)
[2025-03-02] MEDS: insulin glargine 100 units/1 mL 15 UNIT SUBCUT ×2 (09:04→20:34)
--- NOTE | 2025-03-02 09:42 | PC.NURSE ---
report called to npu for transfer
[2025-03-02 11:35] LABS: Glucose Point of Care 174 mg/dL (70-110)
--- NOTE | 2025-03-02 13:11 | P.NPUPN_ITS ---
Subjective NPU 2 Subjective: Patient presented today reporting that he is doing much better now that he is out of DKA. He reports that he knows his alcohol contributed to his medical issues and expressed a clear desire to have his alcohol use be eradicated. He is working with the social work team on follow-up and reports that he has a safe place to go but seems to be coming short of a desire or a plan for rehab or any other more intensive sober living treatment. His 96-hour hold is up tomorrow and we discussed no intention of extending it. He denied any side effects to his medications. Mental Status Exam 2 MSE Comments: This is a well-nourished well-developed white male in hospital scrubs with poor grooming and eye contact. No abnormal movements except for psychomotor retardation. Mostly cooperative with exam and mild to moderate distress. Speech was decreased rate and volume. Mood described as depressed, affect congruent. Thought process organized. Thought content: Patient denied suicidal or homicidal ideation but reports he was having some suicidal thoughts that led into the hospital, there were no delusions reported or noted, he denied any auditory or visual hallucinations. Discussion about potential medication for depression and anxiety. Stressors include relationship issues with and alcohol use. Reasoning assessed during detox, with focus on decision-making readiness. Attention and concentration are mostly intact and memory appeared reliable but no more formally tested. He is alert and oriented x 3. Insight and judgment are limited impulse control is impaired. Vitals/I&O/Wt Last Vital Signs Temp 97.3 F L 03/02/25 09:00 Pulse 74 03/02/25 09:00 Resp 19 H 03/02/25 09:00 BP 151/98 03/02/25 09:00 Pulse Ox 96 03/02/25 07:00 O2 Del Method Room Air 02/28/25 15:02 03/01/25 03/02/25 03/02/25 22:59 06:59 14:59 Intake Total 1442.700 / 2452.951 350 / 350 Output Total 400 / 1050 800 / 800 Balance 1042.700 / 1402.951 -450 / -450 Data NPU 03/02/25 04:28 03/02/25 04:28 A&P Assessment and plan (1) Alcohol use disorder, severe, dependence: (2) Cannabis use disorder, severe, dependence: (3) Methamphetamine use disorder, severe: (4) Major depressive disorder, recurrent severe without psychotic features: (5) Generalized anxiety disorder: (6) Alcoholic intoxication: (7) Suicidal ideation: (8) Anxiety: Plan This is a 35-year-old white male with a long history of addiction and some mental health challenges along with significant medical comorbidity who presented intoxicated and having significant challenges in his relationship on a 96-hour hold. The patient is experiencing issues related to alcohol use, particularly in the context of relationship stressors, which have led to a relapse in drinking behavior. The patient is currently undergoing a detoxification process and is on a withdrawal protocol. There is an indication of potential underlying depression or anxiety. The patient has a history of heart attacks, subsequent stents, and diabetes which may complicate the current situation. 1. Continue current medication. 2. Patient transferred to ICU 3. Continue observation per ICU protocol. 4. Encourage sober living treatment after discharge to the highest level of care to which he is willing to commit. 5. Obtain collateral information. 6. Observe against the backdrop of a 96-hour hold. 7. Hospitalist consult regarding his diabetes and diabetes management. We will await results and follow recommendations as indicated. 8. Appreciate hospitalist consult will allow them to manage DKA in ICU and continue CIWA protocol. PDMP PDMP Reviewed: Not Reviewed Involuntary Hold Information 2 Hold Status: Legal Status: 96 Hour Hold Date/Time Hold Expires: 03/03/2025 @ 1628 Attestations NPU 2 Medical Necessity Statement*: Inpatient hospitalization is medically necessary and the clinically appropriate intervention at this time. We will monitor/initiate medications and make changes as indicated. Likely length of stay 1-3 days. Coding Level of Care Code Acute Code for [facility] Fwd Diagnoses Alcohol use disorder, severe, dependence F10.20 Cannabis use disorder, severe, dependence F12.20 Methamphetamine use disorder, severe F15.20 Major depressive disorder, recurrent severe without psychotic features F33.2 Generalized anxiety disorder F41.1 Alcoholic intoxication F10.929 Suicidal ideation R45.851 Anxiety F41.9
--- NOTE | 2025-03-02 14:39 | P.PN_ITS ---
Subjective 2 Subjective: Patient was seen this morning, denies any fevers, chills, cough, nausea, vomiting, he is adamant that he is not can go back to drinking alcohol, he tells me that at home he takes anywhere between 20 to 30 units of Lantus based upon his blood sugars Vitals/I&O/Wt Last Vital Signs Temp 98.4 F 03/02/25 14:00 Pulse 80 03/02/25 14:00 Resp 20 H 03/02/25 14:00 BP 136/92 03/02/25 14:00 Pulse Ox 98 03/02/25 14:00 O2 Del Method Room Air 03/02/25 14:00 03/01/25 03/02/25 03/02/25 22:59 06:59 14:59 Intake Total 1442.700 / 2452.951 350 / 350 Output Total 400 / 1050 800 / 800 Balance 1042.700 / 1402.951 -450 / -450 Physical Exam 2 Const: COMMON NORMALS: no acute distress and patient oriented x3 Resp: COMMON NORMALS: normal respiratory effort, No retractions, No use of accessory muscles and clear to auscultation bilaterally AUSCULTATION: clear to auscultation bilaterally Cardio: COMMON NORMALS: regular rate, regular rhythm, S1 normal heart sound present and S2 normal heart sound present RATE: regular rate RHYTHM: r egular rhythm HEART SOUNDS: S1 normal heart sound present and S2 normal heart sound present GI: COMMON NORMALS: Normal to inspection, nondistended, normoactive bowel sounds present and non-tender Extremity: COMMON NORMALS: no pedal edema Neuro: COMMON NORMALS: patient oriented x3 Psych: COMMON NORMALS: mental status grossly normal Data 03/02/25 04:28 03/02/25 04:28 A&P Assessment and plan (1) Diabetic ketoacidosis: (2) Alcohol use disorder, severe, dependence: (3) Cannabis use disorder, severe, dependence: (4) Alcoholic intoxication: (5) HTN (hypertension): (6) CAD (coronary artery disease): (7) Hyperlipidemia: (8) Diabetes: (9) Alcoholic liver disease: Plan Diabetic ketoacidosis, resolved -Transitioned off insulin drip, to subcu insulin, Lantus yesterday evening ? Bicarb within reasonable range, anion gap's 15 -Lantus 15 units twice daily -High-dose insulin sliding scale Transaminitis hyperbilirubinemia nausea vomiting - CT/CT abdomen pelvis wo con [id number] IMPRESSION: 1. Hepatomegaly with severe hepatic steatosis. Variable attenuation in the LEFT lobe is probably due to areas of focal fatty sparing and hepatic steatosis. 2. Negative gallbladder. 3. No renal obstruction. Stable cortical hypo and hyperdensities since 10/29/2023. 4. No ascites. No free air. 5. Long RIGHT common iliac stent extending into the external iliac artery. 6. Scattered pancreatic calcifications. Probably related to prior pancreatitis. No acute pancreatitis Pseudohyponatremia secondary hyperglycemia, resolved Intractable nausea vomiting could be marijuana hyperemesis and alcohol withdrawal Possible alcohol ketosis, IV fluids Alcohol withdrawal, CIWA protocol chronic pain -resume elvira oxycodone -resume home clonazepam Patient can be transferred back to neuropsychiatric unit, had a detailed discussion with him about alcohol cessation counseling, morbidity and mortality associated, - Discussed with patient he should continue high dose insulin sliding scale at home, Lantus 15 units twice daily PDMP PDMP Reviewed: Last Reviewed 03/01/25 15:31 by Everett Patino MD Attestations 2 Medical Necessity Statement*: Patient requires hospitalization for hyperglycemia, DKA, Diagnoses Diabetic ketoacidosis E11.10 Alcohol use disorder, severe, dependence F10.20 Cannabis use disorder, severe, dependence F12.20 Alcoholic intoxication F10.929 Essential hypertension I10 Hypertension type: essential hypertension Coronary artery disease involving [place] coronary artery of [place] heart without angina pectoris I25.10 Coronary Disease-Associated Artery/Lesion type: [place] artery [place] vs. transplanted heart: [place] heart Associated angina: without angina Mixed hyperlipidemia E78.2 Hyperlipidemia type: mixed hyperlipidemia Diabetes E11.9 Alcoholic liver disease K70.9
[2025-03-02 16:47] LABS: Glucose Point of Care 246 mg/dL (70-110)
[2025-03-02] MEDS: baclofen 10 mg Tablet PO (17:11)
[2025-03-02 20:02] LABS: Glucose Point of Care 122 mg/dL (70-110)
[2025-03-02] MEDS: trazodone 150 mg Tablet PO (20:32)
[2025-03-02] MEDS: MELATONIN 3 MG TABLET 9 MG PO (20:32)
[2025-03-02] MEDS: hyDROXYzine 25 mg Capsule 50 MG PO (20:39)
[2025-03-02] MEDS: pregabalin 100 mg Capsule PO (20:40)
[2025-03-02] MEDS: trazodone 50 mg Tablet PO (23:02)
[2025-03-02] MEDS: OLANZapine 5 mg ODT PO (23:03)
[2025-03-03] MEDS: CLONazepam 1 mg Tablet PO (00:25)
[2025-03-03 06:00] VITALS: BP 181/118; PULSE 91; RESP 17; TEMP 36.7; O2SAT 99
[2025-03-03 06:14] VITALS: BP 181/118
[2025-03-03] MEDS: losartan 50 mg Tablet 75 MG PO (06:14)
[2025-03-03 06:17] VITALS: BP 181/118
[2025-03-03] MEDS: cloNIDine 0.1 mg Tablet 0.2 MG PO (06:17)
[2025-03-03 07:35] LABS: Glucose Point of Care 341 mg/dL (70-110)
[2025-03-03] MEDS: insulin lispro 100 unit/1 mL SUBCUT (07:44)
[2025-03-03] MEDS: insulin glargine 100 units/1 mL 15 UNIT SUBCUT (07:45)
[2025-03-03] MEDS: tamsulosin 0.4 mg Capsule 0.8 MG PO (08:00)
[2025-03-03] MEDS: atorvastatin 40 mg Tablet PO (08:00)
[2025-03-03] MEDS: thiamine 100 mg Tablet PO (08:00)
[2025-03-03] MEDS: NIFEdipine ER (24 hr) 30 mg Tablet 90 MG PO (08:00)
[2025-03-03] MEDS: aspirin 81 mg Chew Tablet PO (08:00)
[2025-03-03] MEDS: clopidogrel 75 mg Tablet PO (08:00)
[2025-03-03] MEDS: pantoprazole DR 40 mg Tablet PO (08:00)
[2025-03-03] MEDS: folic acid 1 mg Tablet PO (08:00)
[2025-03-03] MEDS: multivitamin therapeutic Tablet 1 TAB PO (08:00)
[2025-03-03] MEDS: sodium bicarbonate 650 mg Tablet PO (08:00)
[2025-03-03] MEDS: isosorbide dinitrate 20 mg Tablet 10 MG PO (08:50)
[2025-03-03 08:51] VITALS: BP 147/102; PULSE 105; RESP 18; O2SAT 100
[2025-03-03 10:15] LABS: Basophils % 0.2 %; Eosinophils # 0.1 10^3/uL (0.0-0.8); Eosinophils % 1.3 %; Hematocrit 43.6 % (37-53); Lymphocytes # 2.2 10^3/uL (0.8-4.8); Lymphocytes % 26.4 %; Mean Corpuscular HGB Conc 32.6 g/dL (30-55); Mean Corpuscular Hemoglobin 27.2 pg (27-33); Mean Corpuscular Volume 83.4 fl (82-101); Mean Platelet Volume 10.4 fL (7.4-10.4); Monocytes # 0.7 10^3/uL (0.2-0.9); Monocytes % 7.8 %; Neutrophils # 5.44 10^3/uL (1.8-7.7); Neutrophils % 63.9 %; Nucleated Red Blood Cells % 0 %; Platelet Count 135 10^3/cmm (157-399); Red Blood Count 5.23 10^6/uL (3.85-5.65); Red Cell Distribution Width 20.5 % (12.1-15.1)
[2025-03-03 10:39] LABS: Alanine Aminotransferase 94 U/L (0-41); Albumin Level 3.8 g/dL (3.5-5.2); Alkaline Phosphatase 154 U/L (40-130); Aspartate Amino Transferase 62 U/L (0-40); Blood Urea Nitrogen 13 mg/dL (6-20); Carbon Dioxide 20 mmol/L (22-29); Chloride 100 mmol/L (98-107); Creatinine Clr Calc Pharmacy 122.1984; Globulin 2.8 g/dL (1.3-4.6); Glucose 172 mg/dL (65-115); Osmolality Calculated 280 mOsm/kg (285-295); Sodium 133 mmol/L (136-145); Total Bilirubin 0.6 mg/dL (0.15-1.2); Total Protein 6.6 g/dL (6.6-8.7)
[2025-03-03 10:53] LABS: Glucose Point of Care 136 mg/dL (70-110)
--- NOTE | 2025-03-03 11:26 | W.PM.NPUDCS ---
Diagnoses at Discharge Discharge Diagnosis (1) Alcohol use disorder, severe, dependence: Status: Acute (2) Cannabis use disorder, severe, dependence: Status: Acute (3) Methamphetamine use disorder, severe: Status: Acute (4) Major depressive disorder, recurrent severe without psychotic features: Status: Acute (5) Generalized anxiety disorder: Status: Acute (6) Alcoholic intoxication: Status: Acute (7) Suicidal ideation: Status: Acute (8) Anxiety: Status: Acute Reason for Visit Reason for Visit: ETOH Involuntary Hold Information Hold Status: Legal Status: 96 Hour Hold Date/Time Hold Expires: 03/03/2025 @ 1628 Mental Status Exam MSE Comments: This is a well-nourished well-developed white male in hospital scrubs with poor grooming and eye contact. No abnormal movements except for psychomotor retardation. Mostly cooperative with exam in no acute distress. Speech was decreased rate and volume. Mood described as better, affect congruent. Thought process organized. Thought content: Patient denied suicidal or homicidal ideation but reports he was having some suicidal thoughts that led into the hospital, there were no delusions reported or noted, he denied any auditory or visual hallucinations. Discussion about potential medication for depression and anxiety. Stressors include relationship issues with and alcohol use. Reasoning assessed during detox, with focus on decision-making readiness. Attention and concentration are mostly intact and memory appeared reliable but no more formally tested. He is alert and oriented x 3. Insight and judgment are limited impulse control is improving. Discharge Data Studies Completed and Pending: Completed Studies During Hospitalization Category Date Time Status CT abdomen pelvis wo con [id number] Stat Cat Scan 02/28/25 14:08 Completed [place] abdomen [place] d [id number] Routine Ultrasound 02/28/25 14:08 Completed Radiology Impressions Abdomen Ultrasound 02/28/25 14:08 IMPRESSION: 1. Small amount of gallbladder sludge. No cholelithiasis. 2. Moderate pedal megaly with mild hepatic steatosis. 3. Cortical cyst superior pole RIGHT kidney, 2.2 cm. Abdomen/Pelvis CT 02/28/25 14:08 IMPRESSION: 1. Hepatomegaly with severe hepatic steatosis. Variable attenuation in the LEFT lobe is probably due to areas of focal fatty sparing and hepatic steatosis. 2. Negative gallbladder. 3. No renal obstruction. Stable cortical hypo and hyperdensities since 10/29/2023. 4. No ascites. No free air. 5. Long RIGHT common iliac stent extending into the external iliac artery. 6. Scattered pancreatic calcifications. Probably related to prior pancreatitis. No acute pancreatitis. Laboratory Results WBC 8.50 10^3/uL (3.2 9-11.43) 03/03/25 09:52 RBC 5.23 10^6/uL (3.8 5-5.65) 03/03/25 09:52 Hgb 14.20 g/dL (11.27 -16.99) 03/03/25 09:52 Hct 43.6 % (37-53) 03/03/25 09:52 MCV 83.4 fl (82-101) 03/03/25 09:52 MCH 27.2 pg (27-33) 03/03/25 09:52 MCHC 32.6 g/dL (30-55) 03/03/25 09:52 RDW 20.5 % (12.1-15.1 ) H 03/03/25 09:52 Plt Count 135 10^3/cmm (157 -399) L D 03/03/25 09:52 MPV 10.4 fL (7.4-10.4 ) 03/03/25 09:52 Neut % (Auto) 63.9 % 03/03/25 09:52 Lymph % (Auto) 26.4 % 03/03/25 09:52 Ponce % (Auto) 7.8 % 03/03/25 09:52 Eos % (Auto) 1.3 % 03/03/25 09:52 Baso % (Auto) 0.2 % 03/03/25 09:52 Neut # (Auto) 5.44 10^3/uL (1.8 -7.7) 03/03/25 09:52 Lymph # (Auto) 2.2 10^3/uL (0.8- 4.8) 03/03/25 09:52 [place]once # (Auto) 0.7 10^3/uL (0.2- 0.9) 03/03/25 09:52 Eos # (Auto) 0.1 10^3/uL (0.0- 0.8) 03/03/25 09:52 Baso # (Auto) 0.0 10^3/uL (0.0- 0.1) 03/03/25 09:52 Nucleated RBC % (a uto) 0 % 03/03/25 09:52 Nucleated RBCs # 0.0 /100WBC 03/03/25 09:52 PT 13.90 SECONDS (12 .1-14.9) 02/28/25 15:51 INR 1.00 (0.8-1.2) 02/28/25 15:51 Specimen Type Arterial 02/28/25 16:02 Sample Site Radial, left 02/28/25 16:02 ABG pH 7.50 (7.35-7.45) H 02/28/25 16:02 ABG pCO2 26.4 mmHg (35-45) L 02/28/25 16:02 ABG pO2 93.0 mmHg (80.0-1 00.0) 02/28/25 16:02 ABG PO2/FiO2 Ratio 442 02/28/25 16:02 ABG HCO3 20.4 mmol/L (22-2 6) L 02/28/25 16:02 ABG Base Excess -1.0 mmol/L (-2.0 -2.0) 02/28/25 16:02 [place] Test Pos 02/28/25 16:02 Hematocrit 52.6 % (42-52) H 02/28/25 16:02 O2 Delivery Device Room air 02/28/25 16:02 FiO2 21.0 % 02/28/25 16:02 Heel Finisher ID Cak 02/28/25 16:02 Sodium 133 mmol/L (136-1 45) L 03/03/25 09:52 Potassium 4.0 mmol/L (3.5-5 .1) 03/03/25 09:52 Chloride 100 mmol/L (98-10 7) 03/03/25 09:52 Carbon Dioxide 20 mmol/L (22-29) L 03/03/25 09:52 Anion Gap 17.0 (5-19) 03/03/25 09:52 BUN 13 mg/dL (6-20) 03/03/25 09:52 Creatinine 1.0 mg/dL (0.7-1. 2) 03/03/25 09:52 GFR Calculation 85.0 mL/min (90-1 30) L 03/03/25 09:52 Glucose 172 mg/dL (65-115 ) H 03/03/25 09:52 POC Glucose 136 mg/dL (70-110 ) H 03/03/25 10:49 Estimat Average Gl ucose 212 06/23/25 17:07 Hemoglobin A1c 9.0 % (4.0-6.0) H 02/27/25 17:07 Calculated Osmolal ity 280 mOsm/kg (285- 295) L 03/03/25 09:52 Lactic Acid 1.3 mmol/L (0.5-2 .2) 02/28/25 15:51 Calcium 10.0 mg/dL (8.5-1 0.5) 03/03/25 09:52 Phosphorus 2.3 mg/dL (2.5-4. 5) L 02/28/25 15:51 Magnesium 1.5 mg/dL (1.7-2. 3) L 02/28/25 15:51 Total Bilirubin 0.6 mg/dL (0.15-1 .2) 03/03/25 09:52 Direct Bilirubin 0.64 mg/dL (0.00- 0.30) H 02/28/25 13:30 Indirect Bilirubin 1.16 02/28/25 13:30 GGT 597 U/L (8-61) H 02/28/25 13:30 AST 62 U/L (0-40) H 03/03/25 09:52 ALT 94 U/L (0-41) H 03/03/25 09:52 Alkaline Phosphata se 154 U/L (40-130) H 03/03/25 09:52 C-Reactive Protein 5.3 mg/L (0.0-4.9 ) H 02/28/25 13:30 Total Protein 6.6 g/dL (6.6-8.7 ) 03/03/25 09:52 Albumin 3.8 g/dL (3.5-5.2 ) 03/03/25 09:52 Globulin 2.8 g/dL (1.3-4.6 ) 03/03/25 09:52 Lipase 23 U/L (13-60) 02/28/25 13:30 Procalcitonin 0.25 ng/mL (0-0.5 ) 02/28/25 13:30 TSH 1.42 uIU/mL (0.27 -4.20) 02/28/25 15:51 Urine Color Yellow (Yellow) 02/28/25 22:30 Urine Appearance Clear (CLEAR) 02/28/25 22:30 Urine pH 7.0 (5-7) 02/28/25 22:30 Ur Specific Gravit y 1.010 (1.005-1.0 30) 02/28/25 22:30 Urine Protein 2+ (Negative) A 02/28/25 22:30 Urine Glucose (UA) 2+ (Normal) H 02/28/25 22:30 Urine Ketones 2+ (Negative) H 02/28/25 22:30 Urine Blood Trace (Negative) A 02/28/25 22:30 Urine Nitrate Negative (Negati ve) 02/28/25 22:30 Urine Bilirubin Negative (Negati ve) 02/28/25 22:30 Urine Urobilinogen 1.0 mg/dL (Negati ve) 02/28/25 22:30 Ur Leukocyte Deana ase Negative (Negati ve) 02/28/25 22:30 Urine RBC 3-5 /hpf (0-2) 02/28/25 22:30 Urine WBC 0-5 /hpf (0-5) 02/28/25 22:30 Ur Squamous Epith Cells 0-5 /hpf (0-5) 02/28/25 22:30 Amorphous Sediment Not Reportable 02/28/25 22:30 Urine Bacteria None seen /hpf (N ONE) 02/28/25 22:30 Hyaline Casts 0-4 /lpf H 02/28/25 22:30 Salicylates < 0.3 mg/dL (3-10 ) L 02/27/25 17:07 Urine Opiates Scre en Positive ng/mL (N egative) H 02/28/25 22:30 Acetaminophen < 5.0 ug/mL (10-3 0) L 02/27/25 17:07 Ur Barbiturates Sc reen Negative ng/mL (N egative) 02/28/25 22:30 Ur Phencyclidine S crn Negative ng/mL (N egative) 02/28/25 22:30 Ur Amphetamines Sc reen Negative ng/mL (N egative) 02/28/25 22:30 U Benzodiazepines Scrn Positive ng/mL (N egative) H 02/28/25 22:30 Urine Cocaine Scre en Negative ng/mL (N egative) 02/28/25 22:30 U Marijuana (THC) Screen Positive ng/mL (N egative) H 02/28/25 22:30 Ethyl Alcohol < 10 mg/dL (0-10) 02/28/25 15:51 Serum Ketones Positive (Negati ve) H 02/28/25 13:30 Vitals: Last Vital Signs Temp 98.1 F 03/03/25 06:00 Pulse 105 H 03/03/25 08:51 Resp 18 03/03/25 08:51 BP 147/102 03/03/25 08:51 Pulse Ox 100 03/03/25 08:51 O2 Del Method Room Air 03/03/25 06:00 Discharge Plan Discharge Patient Disposition: Home Condition: Stable Prescriptions: New losartan 50 mg Tablet 75 mg PO DAILY 30 Days Qty: 45 1RF nifedipine 30 mg Tablet Extended Release 24hr 90 mg PO DAILY 30 Days Qty: 90 1RF trazodone 150 mg Tablet 150 mg PO BEDTIME 30 Days Qty: 30 1RF thiamine mononitrate (vit B1) [Vitamin B-1 (mononitrate)] 100 mg Tablet 100 mg PO DAILY 30 Days Qty: 30 1RF Continued clonazepam 1 mg tablet 1 mg PO QPM clonidine HCl 0.2 mg tablet 0.2 mg PO BID pantoprazole 40 mg tablet,delayed release (DR/EC) 40 mg PO DAILY atorvastatin 40 mg tablet 40 mg PO DAILY clopidogrel 75 mg tablet 75 mg PO DAILY isosorbide dinitrate 10 mg tablet 10 mg PO BID Rx Instructions: allow nitrate-free interval of 12-14 hrs per 24-hr period oxycodone 15 mg tablet 15 mg PO BID PRN (Reason: Pain) nitroglycerin 0.4 mg tablet, sublingual 0.4 mg sublingual Q5M PRN (Reason: chest pain) Qty: 25 0RF Rx Instructions: do not exceed 3 doses per episode insulin glargine [Lantus Solostar U-100 Insulin] 100 unit/mL (3 mL) insulin pen 60 unit SUBCUT BEDTIME Men's Multivitamin 400-20-300 mcg Tablet 1 tab PO DAILY melatonin 10 mg Tablet 10 mg PO BEDTIME albuterol sulfate 2.5 mg /3 mL (0.083 %) solution for nebulization 2.5 mg continuous nebulization Q4H PRN (Reason: Shortness Of Breath) sucralfate 1 gram tablet 1 g PO QID aspirin [Aspir-81] 81 mg Tablet,Delayed Release (Dr/Ec) 81 mg PO DAILY albuterol sulfate [Ventolin HFA] 90 mcg/actuation HFA aerosol inhaler 2 puff INHALATION Q6H PRN (Reason: Shortness Of Breath) insulin lispro 100 unit/mL insulin pen 10 unit SUBCUT TID pregabalin 100 mg capsule 100 mg PO TID PRN (Reason: Pain) varenicline tartrate 1 mg tablet 1 mg PO BID cholecalciferol (vitamin D3) 1,250 mcg (50,000 unit) capsule 50,000 unit PO Q7D Rx Instructions: Thursday tamsulosin 0.4 mg capsule 0.8 mg PO DAILY Discontinued losartan 50 mg tablet 50 mg PO BID nifedipine 30 mg tablet extended release 24hr 30 mg PO BID trazodone 100 mg tablet 200 mg PO BEDTIME Discharge Orders: Discharge Order (Routine); Ordered 03/03/25 Ordered By: Darrius Feliciano Referrals: [facility] [Other] - 03/22/25 10:30 am Ester Gregory FNP [Nurse Practitioner, Nurse Practitioner] - 03/07/25 12:25 pm Referral Note: Hospital follow up and 12:25pm is arrival time Joann Merida DO [Primary Care Provider, Family Practice] Discharge Diet: Regular Discharge Activity: Resume usual activity Patient Instructions: Opioid Safety, Patient Portal & Benita Instructions Discharge Attestations NPU Time Spent in Discharge Care*: less than 30 min Specific Discharge Activities: Specific discharge activities: educating patient, discussing with director of casework services/social workers/dc planners, documenting/other paperwork and evaluating patient/reviewing data Coding Level of Care Code Acute Code for [facility] Fwd Diagnoses Alcohol use disorder, severe, dependence F10.20 Cannabis use disorder, severe, dependence F12.20 Methamphetamine use disorder, severe F15.20 Major depressive disorder, recurrent severe without psychotic features F33.2 Generalized anxiety disorder F41.1 Alcoholic intoxication F10.929 Suicidal ideation R45.851 Anxiety F41.9
[2025-03-03 12:33] VITALS: BP 147/102; PULSE 105; RESP 18; TEMP 37.1; O2SAT 100
== END 2025-03-03 14:46 | disposition home or self-care (01) | DRG 885 ==
LOC: ER 16:20 → NP 18:28 → ICU 02-28 16:00 → NP 03-02 09:50
PROVIDERS: Family Medicine; Internal Medicine; Admitting Provider Psychiatry & Neurology Psychiatry; Emergency Provider Emergency Medicine; PCP Family Medicine; Visit Provider Psychiatry & Neurology Psychiatry
DX: F33.2 Major depressive disorder, recurrent severe without psychotic features (principal); E11.10 Type 2 diabetes mellitus with ketoacidosis without coma; F15.20 Other stimulant dependence, uncomplicated; F10.239 Alcohol dependence with withdrawal, unspecified; F12.20 Cannabis dependence, uncomplicated; F41.1 Generalized anxiety disorder; Z63.9 Problem related to primary support group, unspecified; Z95.5 Presence of coronary angioplasty implant and graft; I25.2 Old myocardial infarction; I25.10 Atherosclerotic heart disease of native coronary artery without angina pectoris; E78.5 Hyperlipidemia, unspecified; I10 Essential (primary) hypertension; Z79.02 Long term (current) use of antithrombotics/antiplatelets; Z79.4 Long term (current) use of insulin; K70.9 Alcoholic liver disease, unspecified; F10.229 Alcohol dependence with intoxication, unspecified; Y90.8 Blood alcohol level of 240 mg/100 ml or more; E88.89 Other specified metabolic disorders; R11.10 Vomiting, unspecified; R74.01 Elevation of levels of liver transaminase levels; E86.0 Dehydration
CPT/HCPCS: 36415; 36416; 36600; 74176; 76705; 80048; 80053; 80306; 80307; 81001; 82009; 82247; 82248; 82803; 82962; 82977; 83036; 83605; 83690; 83735; 84100; 84145; 84443; 85025; 85610; 86140; 94664; 96372; 96376; 97165; 99285; J1650; J1815; J2270; J2470; J3411; J3475; J3480; J7030; J7120; J9999